=== PATIENT | male | born 1980 | race Caucasian/White ===

== ENCOUNTER 2017-09-21 03:31 | Inpatient (IN) | payer SELFPAY ==
[~2017-09-21 03:31] MED LIST: NA CHLORIDE 0.9% 1,000 ML ONE; PROPOFOL 1,000 MG/100 ML VIAL IV ONE; RSI MEDICATION KIT IV ONE
--- OUTSIDE RECORDS SUMMARY | 2017-09-21 03:33 | XMS REPORT | Summary of Care ---
:1980 Author Organization [facility] Address [address] [place] [id number]- Encounter HQ Encntr_pilar(FIN) [id number] Date(s): 09/04/15 - 09/06/[address] Professional Services provided by [facility] [place] [address]- Discharge Disposition: Home or Self Care Attending Physician: Kris Stapleton MD Admitting Physician: Kris Stapleton MD Vital Signs Most recent to oldest 1 2 3 [Reference Range]: Height 182.88 cm 187.96 cm (09/04/15 5:00 PM) (09/04/15 12:37 PM) Temperature Oral [96.4-99.1 96.8 DegF 98.3 DegF 98.8 DegF DegF] (09/06/15 7:10 AM) (09/06/15 3:14 AM) (09/05/15 11:17 PM) Blood Pressure [90-140/60-90 116/73 mmHg 124/70 mmHg 130/78 mmHg mmHg] (09/06/15 7:10 AM) (09/06/15 3:14 AM) (09/05/15 11:17 PM) Respiratory Rate [14-20 16 BRMIN 16 BRMIN 16 BRMIN BRMIN] (09/06/15 7:10 AM) (09/06/15 3:14 AM) (09/05/15 11:17 PM) Peripheral Pulse Rate [60-100 67 bpm 79 bpm 73 bpm bpm] (09/06/15 7:10 AM) (09/06/15 3:14 AM) (09/05/15 11:17 PM) Weight 94 kg 94.091 kg (09/04/15 5:00 PM) (09/04/15 12:37 PM) Body Mass Index 28.11 m2 26.63 m2 (09/04/15 5:00 PM) (09/04/15 12:37 PM) Problem List No data available for this section Allergies, Adverse Reactions, Alerts Substance Reaction Severity Status lithium1 Active 1hives, tounge swelling Medications acetaminophen 650 mg, 2 tab, Route: PO, Drug form: TAB, Q4H, Dosing Weight 94.091, kg, PRN Pain 1-3/Temp > 99.5 F, Start date: 09/04/15 13:30:00 CDT, Duration: 30 day, Stop date: 10/04/15 13:29:00 CDT Notes: Do not exceed 4 gm/day. (Same as: Tylenol) Start Date: 09/04/15 Stop Date: 09/06/15 Status: Discontinuedacetaminophen 325 mg oral tablet 650 mg=2 tab, PO, Q4H, PRN Pain 1-3/Temp > 99.5 F, 0 Refill(s) Start Date: 09/06/15 Status: Orderedalteplase 76.6 mg, 76.6 mL, Route: IV, Drug form: PDR/INJ, ONCE, Dosing Weight 94.091, kg , For Stroke Infusion, Start date: 09/04/15 13:38:00 CDT, Stop date: 09/04/15 13 :38:00 CDT Notes: (Same as: Activase) MEDICATION WASTE Product Size: 100 mgProduct Wasted: ___ mg Start Date: 09/04/15 Stop Date: 09/04/15 Status: Completedalteplase 8.5 mg, 8.5 mL, Route: IV, Drug form: PDR/INJ, ONCE, Dosing Weight 94.091, kg, For Stroke Bolus, Start date: 09/04/15 13:38:00 CDT, Stop date: 09/04/15 13:38: 00 CDT Notes: (Same as: Activase) MEDICATION WASTE Product Size: 100 mgProduct Wasted: ___ mg Start Date: 09/04/15 Stop Date: 09/04/15 Status: Completedatorvastatin 80 mg, 1 tab, Route: PO, Drug form: TAB, Bedtime, Dosing Weight 94.091, kg, Start date: 09/04/15 21:00:00 CDT, Duration: 30 day, Stop date: 10/03/15 21:00: 00 CDT Notes: Same as Lipitor Start Date: 09/04/15 Stop Date: 09/05/15 Status: Discontinueddocusate 100 mg, 1 cap, Route: PO, Drug form: CAP, Q12H, Dosing Weight 94.091, kg, Start date: 09/04/15 21:00:00 CDT, Duration: 30 day, Stop date: 10/04/15 9:00:00 CDT Notes: (Same as: Colace) (Do Not Crush) Start Date: 09/04/15 Stop Date: 09/06/15 Status: Discontinuedheparin 5000 units/mL injectable solution 5,000 unit, 1 mL, Route: SUB-Q, Drug form: INJ, Q8H, Dosing Weight 94, kg, Start date: 09/05/15 17:05:00 CDT, Duration: 30 day, Stop date: 10/05/15 16:00: 00 CDT Notes: porcine heparin Start Date: 09/05/15 Stop Date: 09/06/15 Status: Discontinuednicotine 7 mg, 1 patch, Route: TOP, Drug form: ERFILM, Daily, Dosing Weight 94, kg, Start date: 09/05/15 9:00:00 CDT, Duration: 30 day, Stop date: 10/04/15 9:00:00 CDT Notes: (Same as: Habitrol)"Remove old patch before application of new patch "WASTE: F/P - P Waste Black; E - P Waste Black Start Date: 09/05/15 Stop Date: 09/06/15 Status: Discontinuedpantoprazole 40 mg, Route: IVP, Drug form: INJ, Daily, Dosing Weight 94.091, kg, Start date: 09/05/15 9:00:00 CDT, Duration: 30 day, Stop date: 10/04/15 9:00:00 CDT Notes: For IV push reconstitute with 10 ml 0.9% sodium chloride and push over 2 minutes. (Same as: Protonix) Start Date: 09/05/15 Stop Date: 09/05/15 Status: Discontinuedremove patch 1 patch, Route: TOP, Drug form: ERFILM, Daily, Start date: 09/06/15 9:00:00 CDT , Duration: 30 day, Stop date: 10/05/15 9:00:00 CDT Notes: Remove old patch before application of new patch.WASTE: F/P - P Waste Black; E - P Waste Black Start Date: 09/06/15 Stop Date: 09/06/15 Status: DiscontinuedSaline Flush 0.9% 10 mL, Route: IVP, Drug Form: INJ, kg, PRN, PRN Line Flush, Start date: 12:32:00 CDT, Duration: 30 day, Stop date: 10/04/15 12:31:00 CDT Notes: (Same as: BD Posiflush) Start Date: 09/04/15 Stop Date: 09/05/15 Status: DeletedSaline Flush 0.9% 10 ml, Route: IVP, Drug Form: INJ, Dosing Weight 94.091, kg, Q12H, Start date: 09/04/15 21:00:00 CDT, Duration: 30 day, Stop date: 10/04/15 9:00:00 CDT Notes: (Same as: BD Posiflush) Start Date: 09/04/15 Stop Date: 09/06/15 Status: DiscontinuedSaline Flush 0.9% 10 ml, Route: IVP, Drug Form: INJ, Dosing Weight 94.091, kg, PRN, PRN Line Flush , Start date: 09/04/15 13:30:00 CDT, Duration: 30 day, Stop date: 10/04/15 13:29 :00 CDT Notes: (Same as: BD Posiflush) Start Date: 09/04/15 Stop Date: 09/06/15 Status: Discontinuedsodium chloride 0.9% 1000 ml INJ 1,000 mL 1,000 mL, Rate: 75 ml/hr, Infuse over: 13.3 hr, Route: IV, Dosing Weight 94.091 kg, Total Volume: 1,000, Start date: 09/04/15 13:30:00 CDT, Duration: 30 day, Stop date: 10/04/15 13:29:00 CDT Start Date: 09/04/15 Stop Date: 09/05/15 Status: Discontinued Results ELECTROLYTES Most recent to oldest 1 2 3 [Reference Range]: Sodium Lvl [135-145 mEq/L] 143 mEq/L 143 mEq/L 140 mEq/L (09/06/15 3:21 AM) (09/05/15 1:05 AM) (09/04/15 12:48 PM) Potassium Lvl [3.5-5.1 3.9 mEq/L 3.5 mEq/L 4.1 mEq/L mEq/L] (09/06/15 3:21 AM) (09/05/15 1:05 AM) (09/04/15 12:48 PM) Chloride Lvl [95-109 mEq/L] 109 mEq/L 111 mEq/L 106 mEq/L (09/06/15 3:21 AM) *HI* (09/04/15 12:48 PM) (09/05/15 1:05 AM) CO2 [24-32 mEq/L] 24 mEq/L 22 mEq/L 24 mEq/L (09/06/15 3:21 AM) *LOW* (09/04/15 12:48 PM) (09/05/15 1:05 AM) AGAP [10.0-20.0 mEq/L] 13.9 mEq/L 13.5 mEq/L 14.1 mEq/L (09/06/15 3:21 AM) (09/05/15 1:05 AM) (09/04/15 12:48 PM) CHEM PANEL Most recent to oldest 1 2 3 [Reference Range]: Creatinine Lvl [0.50-1.40 0.79 mg/dL 1.00 mg/dL 1.08 mg/dL mg/dL] (09/06/15 3:21 AM) (09/05/15 1:05 AM) (09/04/15 12:48 PM) eGFR 117 mL/min/1.73m2 1 98 mL/min/1.73m2 2 50 mL/min/1.73m2 3 *NA* *NA* *NA* (09/06/15 3:21 AM) (09/05/15 1:05 AM) (09/04/15 12:48 PM) BUN [7-22 mg/dL] 9 mg/dL 12 mg/dL 12 mg/dL (09/06/15 3:21 AM) (09/05/15 1:05 AM) (09/04/15 12:48 PM) Glucose Lvl [70-99 mg/dL] 98 mg/dL 118 mg/dL 105 mg/dL (09/06/15 3:21 AM) *HI* *HI* (09/05/15 1:05 AM) (09/04/15 12:48 PM) POC Creatinine [0.5-1.4 1.0 mg/dL mg/dL] (09/04/15 12:36 PM) Calcium Lvl [8.5-10.5 8.9 mg/dL 7.9 mg/dL 8.6 mg/dL mg/dL] (09/06/15 3:21 AM) *LOW* (09/04/15 12:48 PM) (09/05/15 1:05 AM) Phosphorus [2.5-4.5 mg/dL] 3.3 mg/dL 2.6 mg/dL (09/06/15 3:21 AM) (09/05/15 1:05 AM) Magnesium Lvl [1.8-2.4 2.1 mg/dL 2.0 mg/dL mg/dL] (09/06/15 3:21 AM) (09/05/15 4:46 AM) 1Result Comment: The eGFR is calculated using the CKD-EPI formula. In most young , healthy individualsthe eGFR will be >90 mL/min/1.73m2. The eGFR declines with age. An eGFR of 60-89 may be normal in some populations, particularly the elderly, for whom the CKD-EPI formula has not been extensively validated. Use of the eGFR is not recommended in the following populations: Individuals with unstable creatinine concentrations, including patients and those with serious co-morbid conditions. Patients with extremes in muscle mass or diet. The data above are obtained from the National Kidney Disease Education Program ( NKDEP) which additionally recommends that when the eGFR is used in patients with extremes of body mass index for purposesof drug dosing, the eGFR should be multiplied by the estimated BMI.2Result Comment: The eGFR is calculated using the CKD-EPI formula. In most young, healthy individualsthe eGFR will be >90 mL/ min/1.73m2. The eGFR declines with age. An eGFR of 60-89 may be normal in some populations, particularly the elderly, for whom the CKD-EPI formula has not been extensively validated. Use of the eGFR is not recommended in the following populations: Individuals with unstable creatinine concentrations, including patients and those with serious co-morbid conditions. Patients with extremes in muscle mass or diet. The data above are obtained from the National Kidney Disease Education Program ( NKDEP) which additionally recommends that when the eGFR is used in patients with extremes of body mass index for purposesof drug dosing, the eGFR should be multiplied by the estimated BMI.3Result Comment: The eGFR is calculated using the CKD-EPI formula. In most young, healthy individualsthe eGFR will be >90 mL/ min/1.73m2. The eGFR declines with age. An eGFR of 60-89 may be normal in some populations, particularly the elderly, for whom the CKD-EPI formula has not been extensively validated. Use of the eGFR is not recommended in the following populations: Individuals with unstable creatinine concentrations, including patients and those with serious co-morbid conditions. Patients with extremes in muscle mass or diet. The data above are obtained from the National Kidney Disease Education Program ( NKDEP) which additionally recommends that when the eGFR is used in patients with extremes of body mass index for purposesof drug dosing, the eGFR should be multiplied by the estimated BMI.CARDIAC ENZYMES Most recent to oldest [Reference Range]: 1 2 3 Total CK [12-191 unit/L] 185 unit/L (09/04/15 12:48 PM) CK MB [0.5-3.6 ng/mL] 0.6 ng/mL (09/04/15 12:48 PM) CK MB Index [0.0-2.5] 0.3 (09/04/15 12:48 PM) Troponin-I [0.00-0.40 ng/mL] <0.02 ng/mL <0.02 ng/mL (09/05/15 1:05 AM) (09/04/15 12:48 PM) LIPIDS Most recent to oldest [Reference Range]: 1 2 3 CHD Risk [4.00-7.30] 4.45 (09/05/15 1:05 AM) Chol [<=199 mg/dL] 169 mg/dL (09/05/15 1:05 AM) Trig [<=149 mg/dL] 164 mg/dL *HI* (09/05/15 1:05 AM) HDL [>=61 mg/dL] 38 mg/dL *LOW* (09/05/15 1:05 AM) LDL (Calculated) [<=99 mg/dL] 98 mg/dL (09/05/15 1:05 AM) VLDL 33 *NA* (09/05/15 1:05 AM) SPECIAL CHEMISTRY Most recent to oldest [Reference Range]: 1 2 3 Hgb A1C [<=5.6 %] 5.2 % (09/05/15 1:05 AM) DRUG SCREEN Most recent to oldest [Reference Range]: 1 2 3 U Amph Scr [Negative] Negative *NA* (09/05/15 1:05 AM) U Cindi Scr [Negative] Negative *NA* (09/05/15 1:05 AM) U Benzodia Scr [Negative] Negative *NA* (09/05/15 1:05 AM) U Cocaine Scr [Negative] Negative *NA* (09/05/15 1:05 AM) U Opiate Scr [Negative] Negative *NA* (09/05/15 1:05 AM) U Phencyc Scr [Negative] Negative *NA* (09/05/15 1:05 AM) U Cannab Scr [Negative] Negative *NA* (09/05/15 1:05 AM) UDS Note See Note *NA* (09/05/15 1:05 AM) TOXICOLOGY Most recent to oldest [Reference Range]: 1 2 3 Etoh (%) .018 % *NA* (09/04/15 1:11 PM) Ethanol Lvl 18 mg/dL *NA* (09/04/15 1:11 PM) URINE AND STOOL Most recent to oldest [Reference Range]: 1 2 3 UA Turbidity [Clear] Clear (09/05/15 1:05 AM) UA Color [Yellow] Yellow *NA* (09/05/15 1:05 AM) UA pH [5.0-8.0] 6.0 (09/05/15 1:05 AM) UA Spec Grav [<=1.030] 1.030 (09/05/15 1:05 AM) UA Glucose [Negative mg/dL] Negative mg/dL *NA* (09/05/15 1:05 AM) UA Blood [Negative] Negative (09/05/15 1:05 AM) UA Ketones [Negative mg/dL] Negative mg/dL *NA* (09/05/15 1:05 AM) UA Protein [Negative mg/dL] Negative mg/dL (09/05/15 1:05 AM) UA Urobilinogen [0.1-1.0 mg/dL] 2.0 mg/dL *HI* (09/05/15 1:05 AM) UA Bili [Negative] Negative *NA* (09/05/15 1:05 AM) UA Leuk Est [Negative] Negative (09/05/15 1:05 AM) UA Nitrite [Negative] Negative (09/05/15 1:05 AM) UA WBC [0-5 /HPF] <1 /HPF (09/05/15 1:05 AM) UA Sq Epi None Seen *NA* (09/05/15 1:05 AM) UA Mucus [None Seen /LPF] Few /LPF *NA* (09/05/15 1:05 AM) HEMATOLOGY Most recent to oldest 1 2 3 [Reference Range]: WBC [3.7-10.4 K/CMM] 7.2 K/CMM 4.8 K/CMM 5.5 K/CMM (09/06/15 3:21 AM) (09/05/15 1:05 AM) (09/04/15 12:48 PM) RBC [4.70-6.10 M/CMM] 5.34 M/CMM 5.03 M/CMM 5.31 M/CMM (09/06/15 3:21 AM) (09/05/15 1:05 AM) (09/04/15 12:48 PM) Hgb [14.0-18.0 g/dL] 15.9 g/dL 15.1 g/dL 16.0 g/dL (09/06/15 3:21 AM) (09/05/15 1:05 AM) (09/04/15 12:48 PM) Hct [42.0-54.0 %] 47.3 % 43.9 % 46.8 % (09/06/15 3:21 AM) (09/05/15 1:05 AM) (09/04/15 12:48 PM) MCV [80.0-94.0 fL] 88.7 fL 87.2 fL 88.1 fL (09/06/15 3:21 AM) (09/05/15 1:05 AM) (09/04/15 12:48 PM) MCH [27.0-31.0 pg] 29.8 pg 30.1 pg 30.1 pg (09/06/15 3:21 AM) (09/05/15 1:05 AM) (09/04/15 12:48 PM) MCHC [32.0-36.0 g/dL] 33.6 g/dL 34.5 g/dL 34.2 g/dL (09/06/15 3:21 AM) (09/05/15 1:05 AM) (09/04/15 12:48 PM) RDW [11.5-14.5 %] 13.0 % 12.9 % 13.3 % (09/06/15 3:21 AM) (09/05/15 1:05 AM) (09/04/15 12:48 PM) Platelet [133-450 K/CMM] 171 K/CMM 178 K/CMM 60 K/CMM (09/06/15 3:21 AM) (09/05/15 2:35 PM) *LOW* (09/05/15 1:05 AM) MPV [7.4-10.4 fL] 10.0 fL 10.5 fL 9.4 fL (09/06/15 3:21 AM) *HI* (09/04/15 12:48 PM) (09/05/15 1:05 AM) Segs [45.0-75.0 %] 49.0 % 52.0 % 45.4 % (09/06/15 3:21 AM) (09/05/15 1:05 AM) (09/04/15 12:48 PM) Lymphocytes [20.0-40.0 %] 34.4 % 38.0 % 35.8 % (09/06/15 3:21 AM) (09/05/15 1:05 AM) (09/04/15 12:48 PM) Monocytes [2.0-12.0 %] 10.4 % 6.0 % 12.8 % (09/06/15 3:21 AM) (09/05/15 1:05 AM) *HI* (09/04/15 12:48 PM) Eosinophils [0.0-4.0 %] 5.6 % 3.0 % 5.3 % *HI* (09/05/15 1:05 AM) *HI* (09/06/15 3:21 AM) (09/04/15 12:48 PM) Basophils [0.0-1.0 %] 0.6 % 1.0 % 0.7 % (09/06/15 3:21 AM) (09/05/15 1:05 AM) (09/04/15 12:48 PM) Segs-Bands # [1.5-8.1 K/CMM] 3.5 K/CMM 2.5 K/CMM 2.5 K/CMM (09/06/15 3:21 AM) (09/05/15 1:05 AM) (09/04/15 12:48 PM) Lymphocytes # [1.0-5.5 2.5 K/CMM 1.8 K/CMM 2.0 K/CMM K/CMM] (09/06/15 3:21 AM) (09/05/15 1:05 AM) (09/04/15 12:48 PM) Monocytes # [0.0-0.8 K/CMM] 0.8 K/CMM 0.3 K/CMM 0.7 K/CMM (09/06/15 3:21 AM) (09/05/15 1:05 AM) (09/04/15 12:48 PM) Eosinophils # [0.0-0.5 0.4 K/CMM 0.2 K/CMM 0.3 K/CMM K/CMM] (09/06/15 3:21 AM) (09/05/15 1:05 AM) (09/04/15 12:48 PM) Anisocyte [None Seen] 1+ *ABN* (09/05/15 1:05 AM) Plt Morph Normal (09/05/15 1:05 AM) PT [12.0-14.7 seconds] 14.1 seconds (09/04/15 12:48 PM) INR [0.85-1.17] 1.06 (09/04/15 12:48 PM) PTT [22.9-35.8 seconds] 28.9 seconds (09/04/15 12:48 PM) Immunizations No data available for this section Procedures Procedure Date Related Diagnosis Body Site Total knee replacement Social History Social History Type Response Alcohol Current, Type Beer. Smoking Status Current every day smoker; Type: Cigarettes; Previous treatment: None; Ready to change: No; Concerns about tobacco use in household: No; Exposure to Tobacco Smoke None; Cigarette Smoking Last 365 Days No; Reg Smoking Cessation Counseling No Assessment and Plan Extracted from: Title: Discharge Summary Author: Vikki Christian MD Date: 09/06/15 [facility] Date of Admission: 09/04/2015 Date of Discharge: 09/06/2015 Admit Diagnosis: Concern for stroke Discharge Diagnoses: Syncopal event Consults Obtained: None Brief HPI and Hospital Course: 34 yo man with pmh of HTN, smoking pack a day, questionable spinal tumor for which patient had spinal surgery 3 years ago, present with left sided weakness, left gaze deviation and unable to communicate in the field. as per patient he was going home from [place], was 9am and last thing he remembers stopping the car and starting vomitting. as per EMS family member found him unresponsive, symptom onset at 11:15am. Patient at arrival, was responsive, following commands, no eye deviation noted, and only symptoms persist was left dense hemiparesis. of note patient reports he does not like to take any m edications, denies taking anything, does not follow with any doctors, he reports that he time to time has LOC, cannot tell me how long this episodes. Was previously evaluated for seizures in childhood, never diagnosed with anything. Patient was evaluated and NIHSS was 7. CTH, CT perfusion, CTA did not show any notible abnormalities. Patient's symptoms were consistent with ischemic stoke and patient recieved TPA. MRI brain and spine were done due to patient's history of possible spinal tumor. No deficits on exam. The next morning patient reports that this morning he feels well and is able to move a ll of his extremities. He continues to feel some left sided shoulder and leg "soreness" but does not report he feels weak. No nausea or vomiting noted. Patient had EEG done to rule out seizures, EEG was normal. Event most likely related to syncope. Clearned for discharge home by PT/OT/Speech. Of note, patient noted to have pulmonary nodules on CT neck. No acute clinical respiratory changes or findings on exam. Patient instucted to follow up with PCP for this. Stroke work up CT Head w/o contrast: no acute findings. no hemorrhage CT Perfusion: no remarkable perfusion deficit, no mismatch CTA: no significant intracranial or extracranial artery stenosis, no aneurysm, no malformation MRI Brain w/o contrast: No intracranial abnormality 2D ECHO w bubble study: mild inter-pulmonary shunting, mild pulmonic regurgitation, otherwise normal EKG: Normal sinus rhythm LDL- 98 HbA1c: 5.2 EEG: This is a normal routine electroencephalogram. No epileptiform activity is seen, and no clinical or electrographic seizures are recorded. Discharge Physical Examination: HEAD - Normocephalic and atraumatic LUNGS - Clear to auscultation, no rales or rhonchi CVS - Rate rhythm regular, no murmur, equal pulses bilaterally ABDOMEN - Soft, non tender, with normal bowel sounds. No hepatosplenomegaly NEUROLOGY: AAO*3 Speech: fluent, comprehension intact, repetition and naming intact collator hand: 2-12 intact Motor: Tone: Normal Power: 5/5 in all groups of muscles in all four limbs Reflexes: 2+ symmetrical bilaterally Plantar: Flexor Drift: absent Sensory: Intact light touch and pin prick sensation Intact vibration and position sense Cerebellar signs: Intact FNT, Rombergs negative Gait: normal Final Diagnosis: Syncope Discharge Medications: See HMR for full list of medications. Patient is provided with this list at discharge. Follow up and Important Plans for Future Care: - Patient does not need antiplatelet therapy - Follow up with neurology in 2 weeks - Follow up with PCP in 1 week. Follow up for pulmonary nodules noted on CT. - Smoking cessation discussed Discharge Instructions/Recommendations: The patient received stroke education regarding signs and symptoms of stroke. They were instructed to call 911 if symptoms occurred again. The list of their medications on discharged was reviewed with the patient and all questions were answered. Smoking cessation counseling was provided to the patient Vikki Christian MD PGY-3 Extracted from: Title: Stroke Progress Note Author: Vikki Christian MD Date: 09/06/15 Stroke Progress Note Subjective: No acute issues overnight HPI: 34 yo man with pmh of HTN, smoking pack a day, questionable spinal tumor for which patient had spinal surgery 3 years ago, presents with left sided weakness , left gaze deviation and unable to communicat e in the field. as per patient he was going home [place], was 9am and last thing he remembers stopping the car and starting vomitting. as per EMS family member found him unresponsive, symptom onse t at 11:15am. Patient at arrival, was repsonsive, following commands, no eye deviation noted, and only symptoms persist was left dense hemiparesis. of note patient reports he does not like to take any medications, denies taking anything, does not follow with any doctors, he reports that he time to time has LOC, cannot tell me how long this episodes last but has never been evaluated for that. Hospital Course: 09/03- Patient was evaluated and NIHSS was 7. CTH, CT perfusion, CTA did not show any notible abnormalities. Patient's symptoms were consistent with ischemic stoke and patient recieved TPA. MRI brain an d spine were done due to patient's history of possible spinal tumor. No deficits on exam. 09/04- Patient reports that this morning he feels well and is able to move all of his extremities. He continues to feel some left sided shoulder and leg "soreness" but does not report he feels weak. No nausea or vomiting noted. Medications: 09/04/15 21:00 docusate 100 mg PO Q12H 09/05/15 17:05 heparin (heparin 5000 units/mL injectable solution) 5,000 unit SUB-Q Q8H 09/05/15 9:00 nicotine 7 mg TOP Daily 09/06/15 9:00 remove patch 1 patch TOP Daily Objective: Vitals Tmp(F) Tmp(C) Ttype BP MAP Pulse RR SpO2 FIO2 ETCO2 09/05 03:14 98.3 36.83 oral 124/70 --- 79 16 98 --- --- 09/04 23:17 98.8 37.11 oral 130/78 --- 73 16 97 --- --- 09/04 19:00 98.0 36.67 oral 126/72 --- 70 16 96 --- --- 09/04 18:00 ---- ---- ---- 128/71 92 65 16 98 --- --- 09/04 17:00 ---- ---- ---- 145/69 99 81 20 97 --- --- 09/04 16:01 97.4 36.33 oral ----- --- --- -- --- --- --- 09/04 16:00 ---- ---- ---- 136/79 100 79 20 98 --- --- 09/04 15:00 ---- ---- ---- 141/64 92 79 20 97 --- --- 09/04 14:00 ---- ---- ---- 137/75 100 82 20 97 --- --- 09/04 13:00 ---- ---- ---- 132/84 101 77 20 97 --- --- Physical Exam: HEAD - Normocephalic and atraumatic LUNGS - Clear to auscultation, no rales or rhonchi CVS - Rate rhythm regular, no murmur, equal pulses bilaterally ABDOMEN - Soft, non tender, with normal bowel sounds. No hepatosplenomegaly NEUROLOGY: AAO*3 Speech: fluent, comprehension intact, repetition and naming intact collator hand: 2-12 intact Motor: Tone: Normal Power: 5/5 in all groups of muscles in all four limbs Reflexes: 2+ symmetrical bilaterally Plantar: Flexor Drift: absent Sensory: Intact light touch and pin prick sensation Intact vibration and position sense Cerebellar signs: Intact FNT, Rombergs negative Gait: normal Labs: 24hr Labs 09/05 0321 Glucose Lvl 98 BUN 9 Creatinine Lvl 0.79 Sodium Lvl 143 Potassium Lvl 3.9 Chloride Lvl 109 CO2 24 AGAP 13.9 Calcium Lvl 8.9 eGFR 117 Magnesium Lvl 2.1 Phosphorus 3.3 WBC 7.2 RBC 5.34 Hgb 15.9 Hct 47.3 MCV 88.7 MCH 29.8 MCHC 33.6 RDW 13.0 Platelet 171 MPV 10.0 Segs 49.0 Monocytes 10.4 Lymphocytes 34.4 Eosinophils 5.6 Basophils 0.6 Segs-Bands # 3.5 Lymphocytes # 2.5 Monocytes # 0.8 Eosinophils # 0.4 09/04 1435 Platelet 178 09/04 0446 Magnesium Lvl 2.0 Stroke Work up : CT Head w/o contrast: no acute findings. no hemorrhage CT Perfusion: no remarkable perfusion deficit, no mismatch CTA: no significant intracranial or extracranial artery stenosis, no aneurysm, no malformation MRI Brain w/o contrast: 2D ECHO w bubble study EKG: Normal sinus rhythm LDL- 98 HbA1c: 5.2 Rehab Services: OT- no treatement needed PT- no treatment needed ST- no treatment needed Assessment: 34 yo man with only known stroke risk factor: smoking and HTN, presents with left dense hemiparesis. NIHSS=7 sensory deficit and left hemiparesis; CTH does not show any acute changes, CTP was not signif icant, no mismatch; CTA did not show any significant intracranial or extracranial stenosis; patient got TPA, Door to needle time 35minutes; possible this was lacunar infarct, possible right thalamocaps ular infarct; although questionable as presentation and face is not involved; No spinal cord invovlvement noted. Event could also be explained by seizures as patient has a history of LOC in the past, though never diagnosed with seizures. Diagnosis: Syncope vs seizure Plan: - Symptoms of left sided weakness concerning for stroke, though imaging has been normal. Therefore, does not need Antiplatelets or statins (LDL WNL) - EKG and echo WNL - EEG negative for seizures - evaluated by PT/OT- patient can be discharged to home - Patient to be followed up by PCP for pulmonary nodules found incidentally on CT Vikki Christian MD PGY-3 Child Neurology Extracted from: Title: Stroke Neurology Staff Consult Note Author: Miguel Alfaro MD Date : 09/04/15 Stroke Neurology Staff Consult Note CC: left sided weakness and numbness, possible stroke HPI: 34 yo man with PMH s/f HTN, smoking, spinal tumor for which patient had spinal surgery 3 years ago, presents with left sided weakness, and unable to communicate in the field. He was going home from [facility], at at 9am he had the onset of vomiting and defitcits. As per EMS family member found him unresponsive, symptom onset at 11:15am. Patient at arrival, was awake and repsonsive, following commands, no eye deviation, and symptoms persisted of dense left hemiparesis and severe sensory disturbance. I personally reviewed the noncontrast head CT which was negative for acute changes or hemorrhage. I also personally reviewed the CT perfusion and CT angiogram. There were no large vessel occlusions and no perfusion deficits. I had an extensive discussion with the patient at the bedside regarding his symptoms which were consistent with ischemic stroke. I explained the risks and benefits of intra-venous alteplase. He understo od that there was a 30% chance of getting better with thrombin lysis and and aproximally 3% risk of brain hemorrhage which would cause him neurologic deterioration. He understood all of these risks and stated that his deficits were clearly disabling and that he wanted to proceed with therapy. Along with the stroke fellow at the bedside, I dosed the patient and delivered the bolus myself by hand. The p atient remained stable with no elevated blood pressures and orders were placed for him to be admitted to the stroke unit. I spent approximately 45 minutes at the bedside evaluating the patient, reviewin g the CT scans, obtaining verbal consent and delivering thrombolysis. Admit to stroke unit with routine, post-tPA stroke order set. See separate H& P for additional details. Miguel Alfaro M.D. [employer] Representative Stroke Division; Department of Neurology [phone] (pager) [phone] (cell) Extracted from: Title: s/p TPA admission to Stroke Author: Rita Israel MD Date: unit STROKE CODE (NEUROLOGY) CONSULTATION - tPA Administration DATE: September 04, 2015 Last well known time: 0900 09/04/2015 NEURO EVAL: 12:32pm 09/04/2015 CT READ: 12:37pm 09/04/2015 TPA GIVEN? 13:07pm 09/04/2015 door to needle time 35minutes If no, why not? NIHSS: [address]/LABS? no If yes, why? HPI: 34 yo man with pmh of HTN, smoking pack a day, questionable spinal tumor for which patient had spinal surgery 3 years ago, presents with left sided weakness , left gaze deviation and unable to communicat e in the field. as per patient he [place], was 9am and last thing he remembers stopping the car and starting vomitting. as per EMS family member found him unresponsive, symptom onse t at 11:15am. Patient at arrival, was repsonsive, following commands, no eye deviation noted, and only symptoms persist was left dense hemiparesis. of note patient reports he does not like to take any medications, denies taking anything, does not follow with any doctors, he reports that he time to time has LOC, cannot tell me how long this episodes last but has never been evaluated for that. PMHx: As above FH: no known family history SH: smoking cigarettes one pack a day, alcohol not clear how frequent, last time ETOH yesterday 12 pack, denies durge abuse. Allergy: NKDA Meds: reports to take medication for his spinal tumor cannot recall the name, does not follow anybody for his health maintanence Physical Exam: Vitals: afebr, JU=057/70 , FS=714, RR=20, FS=95 General: AAO x2, only complaining of left sided numbness. Skin: normal color, temperature, no rash, petechiae, no ecchymosis Neck: supple, no bruit, no JVD Neuro Exam: Mental Status: A&Ox2, naming, repetition, reading, writing, comprehension normal, follows 3 steps commands, crosses midline,+/- right left confusion, no visual space disorientation. CN: Pupils equal 3mm reactive to light, visual santos full, EOMI, no nystagmus , face symmetric, decrease sensation on left V1, V2, V3 distribution, hearing finger rub intact b/l, swallowing intact, samir te rise symmetric, tongue midline, no atrophy or fasciculations, no dysarthria. Motor: no drift on the right UE and LE; left UE and LE not against gravity; can only squeeze hand 3/5; cannot shrug shoulders; wiglles toes on the left LE but cannot lift against gravity; Sensory: decrease sensation on the face V1, V2, V3 distribution, left UE and LEft LE to light touch, PP and temperature; Reflexes: 1+ and symmetric B/L biceps, triceps, brachioradialis, 3+ with suprapatellar b/l patellar and 2+ ankle, no clonus; downgoing plantars B/L Coord: finger to nose can do on the right but cannot perform on the left side , [id number] intact on the right cannot perform on the left Gait: deffered 09/03 1532 Glucose POC 100 H 09/03 1311 Ethanol Lvl 18 Etoh (%) .018 09/03 1248 Glucose Lvl 105 H BUN 12 Creatinine Lvl 1.08 Sodium Lvl 140 Potassium Lvl 4.1 Chloride Lvl 106 CO2 24 AGAP 14.1 Calcium Lvl 8.6 eGFR 50 Total CK 185 Troponin-I <0.02 CK MB 0.6 CK MB Index 0.3 WBC 5.5 RBC 5.31 Hgb 16.0 Hct 46.8 MCV 88.1 MCH 30.1 MCHC 34.2 RDW 13.3 Platelet 188 MPV 9.4 Segs 45.4 Monocytes 12.8 H Lymphocytes 35.8 Eosinophils 5.3 H Basophils 0.7 Segs-Bands # 2.5 Lymphocytes # 2.0 Monocytes # 0.7 Eosinophils # 0.3 PT 14.1 INR 1.06 PTT 28.9 18 1236 POC Creatinine 1.[address] Head: no acute findings. no hemorrhage; CTperfusion: no remarkable perfusion deficit, no mismatch CTA: no significant intracranial or extracranial artery stenosis, no aneurysm, no malformation EKG: NSR Impression: 34 yo man with only known stroke risk factor: smoking and HTN, presents with left dense hemiparesis. NIHSS=7 sensory deficit and left hemiparesis; CTH does not show any acute changes, CTP was not signif icant, no mismatch; CTA did not show any significant intracranial or extracranial stenosis; patient got TPA, Door to needle time 35minutes; possible this was lacunar infarct, possible right thalamocaps ular infarct; although questionable as presentation and face is not involved; will work up if any new spinal cord involvements (less likely) (on the exam patient is symmetrically hyperreflexic in lower extremities, no clear pathological reflexes); no other signs of spinal cord involvement. TPA IV bolus at 13:07, 8.5mg; infusion dose: 76.6 total=85.1; wasted: 14.9mg NIHSS Scale: 7 Suggestion/Plan: 1) Admit to Stroke Unit or ICU 2) Bedrest for 24-48 hours, (head of bed <15 degrees) 3) Cardiac monitoring 4) IVF: Normal Saline @ 30cc/kg/day; do not use D5W or NS 5) frequent Neurochecks q1hr 6) Call MD if NIHSS worse by >2, lethargy or worse mental status, severe headache, nausea, vomiting, SBP < 120 mmHg or SBP> 180 mmHg or DBP> 105 mmHg, FSG < 60 mg/dL, FSG > 400 mg/dL, O2 < 94% 7) Check BP every 15 minutes for 2h, then q30 min for 6h, then q1h for16h 8) BP target 185/110 mmHg before tPA administration 9) BP target 180/105 mmHg during tPA infusion 10) If SBP>185 mmHg, DBP>110 mmHg give labetalol 10 mg iv over 1 min and get nicardipine drip 11) If SBP>185 mmHg, DBP >110 mmHg start iv nicardipine 5mg/h; titrate up by 2.5 mg/h every 10 min; maximum 15 mg/h 12) If SBP>185 mmHg, DBP >110 mmHg or DBP>140 mmHg get nitroprusside drip 13) CT head STAT if neurological worsening 14) Regular insulin coverage to keep FSG 140-180 mg/dL 15) Tylenol 650 mg pot id prn temp >100.4 16) Atorvastatin 80 mg po if no longer NPO 17) Repeat CT at 24h 18) If no hemorrhage on CT at 24h start aspirin 81 mg po 19) If no hemorrhage on CT at 24h start UFH 5000 iu sc q8h 20) MRI Brain w/o gadolinium 21) 2D Echo/HOWARD 22) Stroke workup labs: Lipid Prof, HgA1C. 23) Rehab evaluation 24) consider MRI of CTL spine GCS: 15 NIH STROKE SCALE: 7 Addendum by Rita Israel MD on Following was present at Admission: 09/05/2015 08:02 CAFETERIA OR LUNCHROOM CHECKER - Dense hemiparesis Respiratory - no respiratory problems at admission Cardiovascular - NO CHF Acute NE Infectious - NONE GI - NO Peptic ulcer disease, GI bleeding Renal - NO NATALIIA or CKD Heme- NO Coagulopathy, Anemia Cancer - History of questionable "spinal tumor." patient cannot give more information Trauma - NONE Addendum by Kris Stapleton MD on STROKE NEUROLOGY ATTENDING 09/05/2015 15:57 I have seen and examined the patient. Furthermore, I have discussed the case with and reviewed the resident's note and agree with the history, exam, assessment and plan. See note below for additions a nd/or exceptions and my findings. I have personally viewed the patient's radiographic studies and laboratory tests. Summary: The patient yesterday had nauea and vomiting and felt dizzy and generalized weakness. He says does not remember the next series of events. EMS was called who found him unresponsive. He was b rought to our ED and teated with t-PA for possible acute ishcemic stroke. Notable Exam findings: alert, follows commands, fluenet, no slurred speech, no neglect, no limb weakness on exam, face is symmetric, there is no ataxia, senstion intaction to LT on both sides. in face, arm, and leg. shoulder pain on the left. Imaging: Initial CTH/A on: no acute patology. MRI: no acute infarct. no old infarct Assessment/Plan: 89047-[id number] admission Principal Diagnosis history not consistent with a stroke and MRI is negative for acute infarct. Differential would include a syncopal event but he has poor memory of the event. A seizure is a possibility. He has a histo ry of losing consciousness in the past. Tox screen picked up alcohol. evaluation: TTE; PT/OT consult; EEG; follow-up spine imaging given history of ?spine tumor Plan for discharge tomorrow We discussed the philosophy of care with patient and available family if present, reviewed and updated on plan of care and prognosis.
[2017-09-21 04:00] LABS: Blood O2 Saturation 97.2 % (92-98.5)
[2017-09-21 04:01] LABS: Arterial Blood Carboxyhemoglob 10.1 % (0-1.5)
[2017-09-21 04:12] LABS: Absolute Lymphocytes (CBC) 3.1 K/uL (0.7-4.9); Absolute Monocytes 0.7 K/uL (0.1-1.3); Absolute Neutrophil 3.7 K/uL (1.8-8.0); Basophils % 0.8 % (0-1.3); Eosinophils % 1.4 % (0-4.4); Hematocrit 48.5 % (39.6-49.0); Lymphocytes % 41.1 % (15.3-44.8); MCH 31.9 pg (27.0-35.0); MCV 90.3 fL (80-100); MPV 9.8 fL (7.6-11.3); Monocytes % 8.8 % (3.3-12.3); RBC Red Blood Cell Count 5.37 M/uL (4.33-5.43)
[2017-09-21 04:13] LABS: Protime INR 1.21
[2017-09-21 04:16] LABS: Barbiturates NEGATIVE (NEGATIVE); Benzodiazepines NEGATIVE (NEGATIVE); Cocaine NEGATIVE (NEGATIVE); METHAMPHETAM NEGATIVE (NEGATIVE); Methadone NEGATIVE (NEGATIVE); Opiates NEGATIVE (NEGATIVE); Phencyclidine NEGATIVE (NEGATIVE); THC Cannibis NEGATIVE (NEGATIVE)
--- NOTE | 2017-09-21 04:45 | EDPHYS ---
Physician Documentation [facility] Name: Feliz Linares Jr Age: 36 yrs Sex: Male : 1980 Arrival Date: 09/21/2017 Time: 03:32 Bed 3 Private MD: ED Physician Alberto Martínez HPI: 09/21 03:56 This 36 yrs old Male presents to ER via Unassigned with complaints of rn Suicidal Ideation, Overdose. 03:56 The patient presents to the emergency department with a history of a suicide gesture, rn suicide ideation. Onset: The symptoms/episode began/occurred at an unknown time. mental health deputy estimates around 2:15 AM . 04:03 Severity of symptoms: At their worst the symptoms were severe in the emergency rn department the symptoms are unchanged. The patient has experienced similar episodes in the past. Per mental health deputy, patient well known to them, calls frequently, this time told him that he took "all of his pills", which was approx 150 seroquel and 120 depakote to kill himself, when EMS arrived, was combative, but talkative, quickly declined to sonorous respirations around 8-10, no response to narcan.. Historical: - Allergies: 04:16 LITHIUM DERIVITIVES; lp1 - Home Meds: 04:16 Unable to obtain [Active]; lp1 - PMHx: 04:16 ADD/ADHD; Bipolar disorder; Depression; Hypertension; lp1 04:26 Seizures; lp1 - PSHx: 04:16 Unable to obtain; lp1 - Immunization history:: Adult Immunizations unknown. - Social history:: Smoking status: unknown. - Ebola Screening: : No symptoms or risks identified at this time. - History obtained from: EMS. - Unable to obtain history due to: unresponsive. ROS: 04:03 Unable to obtain ROS due to obtunded state. rn Exam: 04:03 Constitutional: This is a well developed, well nourished patient who is unresponsive rn even to painful stimuli Head/Face: Normocephalic, atraumatic. Eyes: pinpoint pupils, minimally reactive, no nystagmus ENT: dry MM Cardiovascular: tachycardic, regular, no murmur Respiratory: bradypnea with sonorous respirations Abdomen/GI: soft, non-tender Skin: Dry, no evidence of cellulitis Neuro: GCS3, no response to painful stimuli Vital Signs: 03:20 BP 104 / 62; Pulse 145; Resp 10; Pulse Ox 95% on 40% Venturi mask; Weight 99.79 kg; lp1 03:30 BP 103 / 67; Pulse 144; Resp 12; Pulse Ox 96% on 40% Venturi mask; lp1 03:50 BP 110 / 73; Pulse 123; Resp 14; Temp 96.6(C); Pulse Ox 99% on 50% FiO2 ETT vent; lp1 04:45 BP 98 / 56; Pulse 113; Resp 16; Temp 95.6(C); Pulse Ox 100% on ETT vent; aa1 05:36 BP 97 / 64; Pulse 110; Resp 16; Temp 95.5(C); Pulse Ox 100% on ETT vent; aa1 06:13 BP 97 / 71; Pulse 120; Resp 18; Temp 96.0(C); Pulse Ox 100% on ETT vent; aa1 07:00 BP 87 / 60; Pulse 121; Resp 16 A; Temp 96.9(C); Pulse Ox 100% on ETT vent; aa5 07:15 BP 91 / 62; Pulse 122; Resp 16 A; Temp 96.9(C); Pulse Ox 100% on ETT vent; aa5 07:30 BP 91 / 54; Pulse 117; Resp 16 A; Temp 97.0(C); Pulse Ox 100% on ETT vent; aa5 07:45 BP 92 / 58; Pulse 120; Resp 16 A; Temp 97.2(C); Pulse Ox 100% on ETT vent; aa5 08:00 BP 96 / 52; Pulse 120; Resp 16 A; Temp 97.3(C); Pulse Ox 100% on ETT vent; aa5 Ventilator: 03:40 Fi02: 50%; Rate: 16min; T.V.: 500ml; Peep: 0cm; lp1 MDM: 03:37 Patient medically screened. rn 04:02 ED course: O2 kept at 100% on ventilator due to elevated COHb level. . rn 04:40 Differential diagnosis: overdose, suicidal gesture. Data reviewed: vital signs, nurses rn notes, lab test result(s), EKG, radiologic studies, plain films. Counseling: I had a detailed discussion with the patient and/or guardian regarding: the historical points, exam findings, and any diagnostic results supporting the discharge/admit diagnosis, lab results, radiology results, the need for further work-up and treatment in the hospital. Response to treatment: the patient's symptoms have mildly improved after treatment, and as a result, I will admit patient. Admission orders: after a detailed discussion of the patient's condition and case, the admit orders are written by me. ED course: Improved HR, airway secure, poison control recommends supportive care, initial ABG looks ok, admitted to ICU under Dr. Davila.. 09/21 03:37 Order name: Acetaminophen rn 09/21 03:37 Order name: Basic Metabolic Panel rn 09/21 03:37 Order name: CBC with Diff rn 09/21 03:37 Order name: ETOH Level rn 09/21 03:37 Order name: Hepatic Function rn 09/21 03:37 Order name: PT-INR rn 09/21 03:37 Order name: Ptt, Activated rn 09/21 03:37 Order name: Salicylate rn 09/21 03:37 Order name: Urine Drug Screen rn 09/21 03:43 Order name: PT-INR; Complete Time: 04:25 ea 09/21 03:43 Order name: Salicylate; Complete Time: 04:31 ea 09/21 03:43 Order name: Ptt, Activated; Complete Time: 04:25 ea 09/21 03:43 Order name: ETOH Level; Complete Time: 05:27 ea 09/21 03:43 Order name: Hepatic Function; Complete Time: 05:27 ea 09/21 03:43 Order name: Basic Metabolic Panel; Complete Time: 05:27 ea 09/21 03:43 Order name: CBC with Diff; Complete Time: 04:25 ea 09/21 03:43 Order name: Acetaminophen; Complete Time: 05:27 ea 09/21 03:43 Order name: Urine Drug Screen; Complete Time: 04:25 EDMS 09/21 03:55 Order name: ABG Arterial Blood Gas; Complete Time: 04:25 EDMS 09/21 04:02 Order name: XRAY Chest (1 view) rn 09/21 04:03 Order name: Urine Dipstick--Ancillary (enter results) cc 09/21 04:07 Order name: AMMONIA; Complete Time: 05:27 rn 09/21 04:29 Order name: Valproic Acid (Depakene) Level; Complete Time: 05:27 EDMS 09/21 03:37 Order name: EKG; Complete Time: 03:38 rn 09/21 03:37 Order name: IV Saline Lock; Complete Time: 04:30 rn 09/21 03:37 Order name: Labs collected and sent; Complete Time: 04:30 rn 09/21 03:37 Order name: Urine Dipstick-Ancillary (obtain specimen); Complete Time: 05:01 rn 09/21 03:37 Order name: Otoniel Tube; Complete Time: 04:30 rn 09/21 03:43 Order name: Labs collected and sent; Complete Time: 04:39 ea 09/21 03:43 Order name: Urine Dipstick-Ancillary (obtain specimen); Complete Time: 04:04 ea 09/21 03:43 Order name: EKG - Nurse/Tech; Complete Time: 05:01 ea 09/21 03:43 Order name: IV Saline Lock; Complete Time: 04:38 ea 09/21 03:43 Order name: EKG; Complete Time: 03:43 ea 09/21 04:52 Order name: Respiratory Therapy Consult EDMS 09/21 04:52 Order name: NPO; Complete Time: 05:01 EDMS Administered Medications: 03:30 Drug: NS 0.9% 1000 ml Route: IV; Rate: 1000 ml; Site: right hand; lp1 04:00 Follow up: IV Status: Completed infusion; IV Intake: 1000ml lp1 03:30 Drug: NS 0.9% 1000 ml Route: IV; Rate: 1000 ml; Site: left antecubital; lp1 04:45 Follow up: IV Status: Completed infusion aa1 03:32 Drug: Etomidate 20 mg Route: IVP; Site: right hand; lp1 03:35 Follow up: Response: No adverse reaction lp1 03:32 Drug: Succinylcholine 120 mg Route: IVP; Site: right hand; lp1 03:35 Follow up: Response: No adverse reaction lp1 04:00 Drug: Propofol 5 mcg/kg/min Route: IV; Rate: calculated rate; Site: left antecubital; lp1 05:35 Follow up: IV Status: Infusion continued upon admission aa1 07:00 Follow up: Drip currently at 7mcg/kg/min aa5 08:00 Follow up: IV Status: Infusion continued upon admission aa5 04:50 Drug: NS 0.9% 1000 ml Route: IV; Rate: 200 ml/hr; Site: left wrist; aa1 05:35 Follow up: IV Status: Infusion continued upon admission aa1 08:00 Follow up: IV Status: Infusion continued upon admission aa5 Disposition: 09/21/17 04:44 Hospitalization ordered by Marion Davila for Inpatient Admission. Preliminary diagnosis are Suicidal ideations, Suicide attempt, Respiratory failure, unspecified. - Bed requested for Intensive Care Unit. - Status is Inpatient Admission. aa5 - Condition is Fair. - Problem is new. - Symptoms have improved. UTI on Admission? No Signatures: Dispatcher [employer] EDMS Delilah Sanches, RN RN aa1 Rosy Young ds1 Alberto Martínez MD MD rn Calderon, Audri RN RN aa5 Laura Walker Laura, RN RN lp1 Vaishnavi Mendez RN RN ea Corrections: (The following items were deleted from the chart) 04:04 03:43 Urine Test ordered. ea cc 04:39 03:37 EKG - Nurse/Tech ordered. rn lp1 04:52 04:29 VALPROIC ACID (DEPAKOTE)+C.LAB.BRZ ordered. EDSC EDMS 05:28 04:44 Hospitalization Ordered by Marion Davila MD for Inpatient Admission. Preliminary ds1 diagnosis is Suicidal ideations; Suicide attempt; Respiratory failure, unspecified. Bed requested for Intensive Care Unit. Status is Inpatient Admission. Condition is Fair. Problem is new. Symptoms have improved. UTI on Admission? No. rn 05:28 05:28 09/21/2017 04:44 Hospitalization Ordered by Marion Davila MD for Inpatient ds1 Admission. Preliminary diagnosis is Suicidal ideations; Suicide attempt; Respiratory failure, unspecified. Bed requested for Intensive Care Unit. Status is Inpatient Admission. Condition is Fair. Problem is new. Symptoms have improved. UTI on Admission? No. ds1 05:32 05:28 09/21/2017 04:44 Hospitalization Ordered by Marion Davila MD for Inpatient cc Admission. Preliminary diagnosis is Suicidal ideations; Suicide attempt; Respiratory failure, unspecified. Bed requested for Intensive Care Unit. Status is Inpatient Admission. Condition is Fair. Problem is new. Symptoms have improved. UTI on Admission? No. ds1 08:31 05:32 09/21/2017 04:44 Hospitalization Ordered by Marion Davila MD for Inpatient aa5 Admission. Preliminary diagnosis is Suicidal ideations; Suicide attempt; Respiratory failure, unspecified. Bed requested for Intensive Care Unit. Status is Inpatient Admission. Condition is Fair. Problem is new. Symptoms have improved. UTI on Admission? No. cc
--- NOTE | 2017-09-21 04:45 | ER ---
Nurse's Notes [facility] Name: Feliz Linares Jr Age: 36 yrs Sex: Male : 1980 Arrival Date: 09/21/2017 Time: 03:32 Bed 3 Private MD: Diagnosis: Suicidal ideations;Suicide attempt;Respiratory failure, unspecified Presentation: 09/21 03:20 Presenting complaint: EMS states: Patient called EMS, stating he wanted to ; EMS lp1 arrived and found patient unresponsive with empty pill bottles of Seroquel 25mg tabs, Seroquel 300mg tabs, Depakote 250mg tabs; Patient took approx 150 pills total; Hx of mental health; Unknown ingestion time. Transition of care: patient was not received from another setting of care. Onset of symptoms was September 21, 2017. Risk Assessment: Do you want to hurt yourself or someone else? Patient reports no desire to harm self or others. Initial Sepsis Screen: Does the patient meet any 2 criteria? No. Patient's initial sepsis screen is negative. Does the patient have a suspected source of infection? No. Patient's initial sepsis screen is negative. Care prior to arrival: Medication(s) given: Normal saline infusion, 1000 mL, Narcan 4mg IV initiated. 18 GA, in the right hand, Glucose check: 141 Oxygen administered. via a non-rebreather mask. 03:20 Method Of Arrival: EMS: [facility] lp1 03:20 Acuity: ALYSSA 2 lp1 04:00 Note Mental Health officer states patient has hx of calling and threatening to harm lp1 self; States patient may have ingested pills about 0200. Historical: - Allergies: 04:16 LITHIUM DERIVITIVES; lp1 - Home Meds: 04:16 Unable to obtain [Active]; lp1 - PMHx: 04:16 ADD/ADHD; Bipolar disorder; Depression; Hypertension; lp1 04:26 Seizures; lp1 - PSHx: 04:16 Unable to obtain; lp1 - Immunization history:: Adult Immunizations unknown. - Social history:: Smoking status: unknown. - Ebola Screening: : No symptoms or risks identified at this time. - History obtained from: EMS. - Unable to obtain history due to: unresponsive. Screenin:35 Abuse screen: unable to obtain. Nutritional screening: No deficits noted. Tuberculosis aa1 screening: unable to obtain. Fall Risk None identified. Assessment: 03:20 General: Appears unkempt, Behavior is unresponsive. Smells of alcohol. Pain: Unable to aa1 use pain scale. Patient is unresponsive. Neuro: Level of Consciousness is unresponsive, Reaction to noxious stimuli is none. Cardiovascular: Heart tones S1 S2 present Rhythm is sinus tachycardia. Respiratory: Airway is patent Respiratory effort is shallow, Respiratory pattern is snoring. GI: Abdomen is round. Derm: Skin is intact, is healthy with good turgor, Skin is pink, warm \T\ dry. Musculoskeletal: Capillary refill < 3 seconds. 03:35 Respiratory: Airway via oral intubation Trachea midline Respiratory effort is assisted aa1 with ventilation Respiratory pattern is symmetrical, Breath sounds are clear bilaterally. 04:20 Reassessment: Poison Control contacted, spoke with Elo; Recommends to repeat lp1 Tylenol and ASA levels at 0600, watch for prolonged QT interval, repeat Depakote level Q6h, monitor electrolytes and replace if needed; continue supportive care. 04:30 Reassessment: Patient appears in no apparent distress at this time. No changes from aa1 previously documented assessment. Awaiting admission orders at this time. 05:31 Reassessment: Patient appears in no apparent distress at this time. No changes from aa1 previously documented assessment. Awaiting ICU bed. 05:45 Reassessment: Bed assignment received however, per warehouse supervisor pt is unable to go aa1 to ICU at this time due to no nurse available on unit to assume care of pt. Pt may go up to unit after shift change. 06:13 Reassessment: Patient appears in no apparent distress at this time. No changes from aa1 previously documented assessment. Dr. Davila at bedside for pt assessment. 07:05 General: Behavior is sedated and intubated . Warming measures per bear hugger at this aa5 time. OG tube noted to low intermittent suction, gastric contents noted. . Pain: Unable to use pain scale. Patient is intubated. Neuro: Level of Consciousness is sedated and orally intubated. Pupils are round, equal, and reactive to light. Pt unable to follow commands. . Cardiovascular: Heart tones S1 S2 present Capillary refill < 3 seconds is brisk in bilateral fingers toes Rhythm is sinus tachycardia. Respiratory: Airway via oral intubation Respiratory pattern is symmetrical, Breath sounds are clear bilaterally. ET tube 24 at the teeth. GI: Abdomen is round non-distended, Bowel sounds present X 4 quads. Abd is soft X 4 quads. : Love in place to gravity drainage Urine is clear. Derm: Skin is pink, warm \T\ dry. 08:00 Neuro: Level of Consciousness is sedated and intubated . Cardiovascular: Rhythm is aa5 sinus tachycardia. Respiratory: Airway via oral intubation Respiratory pattern is symmetrical, Breath sounds are clear bilaterally. Derm: Skin is pink, warm \T\ dry. 08:15 Reassessment: Mekhi black shoes, jeans, 3 empty medication bottles, and $29.10 fraser aa5 given to security. Witnessed by Magaly Riojas RN and personal belongings list completed and included in pt's chart (see pt's chart for witness signatures and security signature upon receiving these pt's belongings). Grace Rodriguez RN (ICU nurse) was notified of this. . Psych: 04:15 Subjective: Patient unresponsive on arrival to ED; Mental health states sad about lp1 break-up with girlfriend Kirsty. Objective: Patient is Unresponsive, intubated. Interventions: Patient placed in hospital gown. Urine collected and sent for urine drug test. Suicide Risk Assessment: Sad Person Scale: Sex of patient: Male: Score 1 point. Age of patient: Score 0 point if patient falls outside of specified age parameters. Depression: Score 1 point if signs of depression are present. Previous Attempt: Score 1 point if patient has previously attempted suicide. Substance Abuse: Score 1 point if patient abuses alcohol or drugs. Rational Thinking: Score 1 point if patient is lacking rational thinking. Social Support: Score 1 point if social support is lacking and/or unavailable. Organized Plan: Score 1 point if patient had a plan in place. Relationship: Score 1 point if patient is , , , or for a single male Chronic Sickness: Score 0 point if patient does not have a chronic illness, debilitating, or severe disorder. TOTAL POINTS: If total points are 7-10, the proposed clinical action is to hospitalize or commit. Implement suicide precautions. 04:15 Safety Checks: Personal items have been removed. Door is open. No visitors are present lp1 at this time. Unknown substance abuse. 07:00 Commitment: Pt sedated and intubated at this time. aa5 Vital Signs: 03:20 BP 104 / 62; Pulse 145; Resp 10; Pulse Ox 95% on 40% Venturi mask; Weight 99.79 kg; lp1 03:30 BP 103 / 67; Pulse 144; Resp 12; Pulse Ox 96% on 40% Venturi mask; lp1 03:50 BP 110 / 73; Pulse 123; Resp 14; Temp 96.6(C); Pulse Ox 99% on 50% FiO2 ETT vent; lp1 04:45 BP 98 / 56; Pulse 113; Resp 16; Temp 95.6(C); Pulse Ox 100% on ETT vent; aa1 05:36 BP 97 / 64; Pulse 110; Resp 16; Temp 95.5(C); Pulse Ox 100% on ETT vent; aa1 06:13 BP 97 / 71; Pulse 120; Resp 18; Temp 96.0(C); Pulse Ox 100% on ETT vent; aa1 07:00 BP 87 / 60; Pulse 121; Resp 16 A; Temp 96.9(C); Pulse Ox 100% on ETT vent; aa5 07:15 BP 91 / 62; Pulse 122; Resp 16 A; Temp 96.9(C); Pulse Ox 100% on ETT vent; aa5 07:30 BP 91 / 54; Pulse 117; Resp 16 A; Temp 97.0(C); Pulse Ox 100% on ETT vent; aa5 07:45 BP 92 / 58; Pulse 120; Resp 16 A; Temp 97.2(C); Pulse Ox 100% on ETT vent; aa5 08:00 BP 96 / 52; Pulse 120; Resp 16 A; Temp 97.3(C); Pulse Ox 100% on ETT vent; aa5 ED Course: 03:20 Maintain EMS IV. Dressing intact. Good blood return noted. Site clean \T\ dry. Gauge \T\ lp 1 site: 18g R hand. 03:30 Inserted saline lock: 18 gauge in left antecubital area, using aseptic technique. Blood lp1 collected. By Chastity Robles RN. 03:32 Patient arrived in ED. ds1 03:33 Assisted provider with intubation using 7.5 mm ETT via oral route. ET tube secured at lp1 24cm at the teeth. Set up intubation tray. Intubated by Alberto Martínez MD Placement verified by CXR, CO2 detector w/ + color change, auscultating bilateral breath sounds. 03:37 Alberto Martínez MD is Attending Physician. rn 03:37 Inserted saline lock: 20 gauge in left hand, using aseptic technique. By Chastity Robles RN. 03:39 Love cath inserted, using sterile technique, 16 Fr., balloon inflated, to gravity lp1 drainage, urine specimen collected. By ROMEO Mazariegos. 03:45 Assisted provider with central line placement. Set up central line tray. Triple lumen lp1 line placed in right femoral. Line placed by Alberto Martínez MD Placement verified by blood return, Dressed with Tegaderm. 03:47 Otoniel inserted orally. Placement verified return of gastric contents, Small pill lp1 fragments noted. 03:47 Gastric lavage via Otoniel tube with tap water until clear returned clear fluid, pill aa1 fragments. 04:13 Triage completed. lp1 04:13 Arm band placed on right wrist. lp1 04:17 X-ray completed. Portable x-ray completed in exam room. la2 04:19 XRAY Chest (1 view) In Process Unspecified. EDMS 04:30 Patient has correct armband on for positive identification. Placed in gown. Bed in low lp1 position. Side rails up X2. senior java programmer analyst on. Pulse ox on. NIBP on. 04:30 Thermoregulation: Chrissy blanket applied. aa1 04:32 One-on-one care X 60 minutes. aa1 04:43 Marion Davila MD is Hospitalizing Provider. rn 04:59 Delilah Sanches RN is Primary Nurse. aa1 05:24 Thermoregulation: warm intravenous fluids. aa1 05:32 One-on-one care X 60 minutes. aa1 05:34 Patient admitted, IV remains in place. aa1 07:00 Report given to Nicki Casiano RN. aa1 07:52 Nicki Casiano, RN is Primary Nurse. aa5 Administered Medications: 03:30 Drug: NS 0.9% 1000 ml Route: IV; Rate: 1000 ml; Site: right hand; lp1 04:00 Follow up: IV Status: Completed infusion; IV Intake: 1000ml lp1 03:30 Drug: NS 0.9% 1000 ml Route: IV; Rate: 1000 ml; Site: left antecubital; lp1 04:45 Follow up: IV Status: Completed infusion aa1 03:32 Drug: Etomidate 20 mg Route: IVP; Site: right hand; lp1 03:35 Follow up: Response: No adverse reaction lp1 03:32 Drug: Succinylcholine 120 mg Route: IVP; Site: right hand; lp1 03:35 Follow up: Response: No adverse reaction lp1 04:00 Drug: Propofol 5 mcg/kg/min Route: IV; Rate: calculated rate; Site: left antecubital; lp1 05:35 Follow up: IV Status: Infusion continued upon admission aa1 07:00 Follow up: Drip currently at 7mcg/kg/min aa5 08:00 Follow up: IV Status: Infusion continued upon admission aa5 04:50 Drug: NS 0.9% 1000 ml Route: IV; Rate: 200 ml/hr; Site: left wrist; aa1 05:35 Follow up: IV Status: Infusion continued upon admission aa1 08:00 Follow up: IV Status: Infusion continued upon admission aa5 Intake: 04:00 IV: 1000ml; Total: 1000ml. lp1 Output: 08:00 Urine: 500ml (Love); Total: 500ml. aa5 Ventilator: 03:40 Fi02: 50%; Rate: 16min; T.V.: 500ml; Peep: 0cm; lp1 Outcome: 04:44 Decision to Hospitalize by Provider. rn 08:05 Admitted to ICU accompanied by nurse, accompanied by tech, via stretcher, on monitor, aa5 with chart, Other with RT administering O2 via ambu bag per ET tube Report called to Grace Rodriguez RN 08:05 Condition: stable 08:05 Instructed on N/A, pt intubated 08:15 Patient left the ED. aa5 Signatures: Dispatcher [employer] EDMS Delilah Sanches RN RN aa1 Rosy Young ds1 Alberto Martínez MD MD rn Calderon, Audri, RN RN aa5 Dian Hernandez RN RN lp1 Dia Guzman2 Corrections: (The following items were deleted from the chart) 04:14 03:20 Care prior to arrival: Medication(s) given: Narcan 4mg IV initiated. 18 GA, in lp1 the right hand, Glucose check: 141 Oxygen administered. via a non-rebreather mask, lp1 08:35 08:31 Patient left the ED. aa5 aa5
[2017-09-21 04:47] LABS: ALT/SGPT 131 U/L (12-78); AST/SGOT 53 U/L (15-37); Albumin 3.8 g/dL (3.4-5.0); Alkaline Phosphatase 82 U/L (45-117); BUN Blood Urea Nitrogen 9 mg/dL (7-18); Bicarbonate 21 mmol/L (21-32); Bilirubin Direct 0.1 mg/dL (0-0.2); Bilirubin Total 0.7 mg/dL (0.2-1.0); Glucose Level 114 mg/dL (74-106); Potassium 3.3 mmol/L (3.5-5.1); Protein, Total 7.5 g/dL (6.4-8.2); Sodium Level 139 mmol/L (136-145)
[2017-09-21] MEDS ORDERED: ACETAMINOPHEN 650MG/RECT SUPP RECT PRN (04:47)
[2017-09-21] MEDS ORDERED: MAGNESIUM HYDROXIDE 8% 30 ML FT PRN (04:47)
[2017-09-21] MEDS ORDERED: NA CHLORIDE 0.9% 250 ML IV PRN (04:47)
[2017-09-21] MEDS ORDERED: ONDANSETRON 4 MG/2 ML VIAL IV PRN (04:47)
[2017-09-21] MEDS ORDERED: PROPOFOL 1,000 MG/100 ML VIAL IV PRN (04:47)
[2017-09-21 04:50] LABS: Alcohol Serum/Plasma 222 mg/dL (<3); Valproic Acid (Depakene) Level < 3.0 ug/mL (50-100)
[2017-09-21] MEDS ORDERED: NA CHLORIDE 0.9% 1,000 ML ONE (04:52)
[2017-09-21 05:56] LABS: Urine Blood NEGATIVE (NEG); Urine Glucose NEGATIVE (NEG); Urine Protein NEGATIVE (NEG); Urine Specific Gravity <1.005 (1.005-1.030); Urine pH 5.5 (5.0-7.0)
--- NOTE | 2017-09-21 08:00 | P.HP ---
Certification for Inpatient Patient admitted to: Inpatient With expected LOS: >2 Midnights Patient will require the following post-hospital care: None Practitioner: I am a practitioner with admitting privileges, knowledge of patient current condition, hospital course, and medical plan of care. Services: Services provided to patient in accordance with Admission requirements found in Title 42 Section 412.3 of the Code of Federal Regulations Patient History Date of Service: 09/21/17 Reason for admission: Overdose/respiratory failure/hypotension/tachycardic/ hypothermic History of Present Illness: Patient is a 36-year-old gentleman who overdosed after his left him. Patient had questionable suicidal ideations a year ago. However he was discharged from the hospital at that time. Patient apparently has not had great follow with [facility]. He did have a bottle of Seroquel 325 mg that he spends take daily. He also had a prescription for Depakote. All of these bottles were completely empty. According to mental health deputy patient had emptied those bottles prior to them arriving and he had taken all the pills in all 3 bottles. A shorter as to the exact quantity of pills but he will took roughly 60 Depakote pills. The Seroquel prescription have been there since May some not exactly sure have many of those he ingested. They did attempt charcoal however they got a few pill particles. At this time she will remain intubated, and will aggressively hydrate him and monitor him hemodynamically. We have a Chrissy Hugger to warm him. We can irrigate his bladder with warm fluids as necessary. Check thyroid studies as well. No family member have been at bedside at this time. Prognosis remains guarded. Allergies lithium [Bond] Adverse Reaction (Mild, Unverified 08/12/11 17:02) Hive LITHIUM DERIVIT Allergy (Uncoded 08/23/16 07:23) Unknown - Past Medical/Surgical History -: Unknown-per chart he has had a prior suicide attempt -: Unknown - Family History Father Notes: Unknown - Social History Smoking Status: Unknown if ever smoked Review of Systems is unable to be obtained (Patient is sedated and intubated) Physical Examination - Vital Signs Temperature: 96 F Blood Pressure: 90/50 Pulse: 119 Respirations: 12 Pulse Ox (%): 98 - Physical Exam General: Unresponsive, Other (Intubated and sedated) HEENT: Atraumatic, Normocephalic, Other (Pupils are sluggish) Neck: 2+ carotid pulse no bruit, JVD not distended Respiratory: Clear to auscultation bilaterally, Diminished Cardiovascular: Regular rate/rhythm, Normal S1 S2, No murmurs Gastrointestinal: Normal bowel sounds, Soft and benign, Non-distended, No tenderness Musculoskeletal: No clubbing, No swelling Integumentary: No rashes, No breakdown Neurological: Abnormal gait, Abnormal speech, Abnormal strength, Abnormal tone, Abnormal sensation, Abnormal cranial nerve function Lymphatics: No axilla or inguinal lymphadenopathy - Studies Laboratory Data (last 24 hrs) 09/21/17 03:37: PT Cancelled, INR Cancelled, APTT Cancelled 09/21/17 03:37: WBC Cancelled, Hgb Cancelled, Hct Cancelled, Plt Count Cancelled 09/21/17 03:37: Sodium Cancelled, Potassium Cancelled, BUN Cancelled, Creatinine Cancelled, Glucose Cancelled, Total Bilirubin Cancelled, AST Cancelled, ALT Cancelled, Alkaline Phosphatase Cancelled 09/21/17 03:30: WBC 7.6, Hgb 17.1, Hct 48.5, Plt Count 188 09/21/17 03:30: Sodium 139, Potassium 3.3 L, BUN 9, Creatinine 1.00, Glucose 114 H, Total Bilirubin 0.7, AST 53 H, ALT 131 H, Alkaline Phosphatase 82 09/21/17 03:30: PT 14.3 H, INR 1.21, APTT 30.7 Assessment & Plan - Problems (Diagnosis) (1) Overdose Current Visit: Yes Status: Acute (2) Respiratory failure Current Visit: Yes Status: Acute (3) Hypotension Current Visit: Yes Status: Acute (4) Hypothermia Current Visit: Yes Status: Acute (5) Tachycardia Current Visit: Yes Status: Acute - Plan Plan: 1. Need to get a senior care to keep patient in hospital when he awakens 2. Aggressive IV hydration 3. Monitor hemodynamics and cardiac status closely 4. Monitor electrolytes closely 5. Sedation with propofol drip 6. MR eval once patient is medically stable 7. Warming measures as necessary 8. Keep in close contact with poison control 9. Monitor valproic acid level 10. DVT prophylaxis Discharge Plan: Psychiatry Plan to discharge in: Greater than 2 days - Advance Directives Does patient have a Living Will: No Does patient have a Durable POA for Healthcare: No - Code Status/Comfort Care Code Status Assessed: Yes Code Status: Full Code Critical Care: Yes Time Spent Managing PTS Care (In Minutes): 60
[2017-09-21] MEDS: NA CHLORIDE 0.9% 1,000 ML IV SCH ×2 (09:13→16:21)
[2017-09-21] MEDS: ENOXAPARIN 40 MG/0.4 ML SQ SCH (09:17)
--- NOTE | 2017-09-21 09:31 | RAD REPORT ---
EXAM DESCRIPTION: Carolyn Single View09/21/2017 4:18 am CLINICAL HISTORY: Shortness of breath/overdose COMPARISON: none FINDINGS: Endotracheal tube has its tip well above the ramesh. A nasogastric tube has its tip in sto mach Mild bilateral pulmonary opacities are present. . The heart is normal size IMPRESSION: Mild bilateral pulmonary opacities may represent pulmonary edema or aspiration pneumonit is
[2017-09-21] MEDS ORDERED: SUCCINYLCHOLINE 20 MG/ML (10 ML) IV ONE (10:19)
[2017-09-21] MEDS ORDERED: ETOMIDATE 20 MG/10 ML VIAL IV ONE (10:19)
--- NOTE | 2017-09-21 10:32 | EKG ---
Test Date: 2017-09-21 Test Time: 04:18:07 Internal Investigator: ADDIE MEASUREMENT RESULTS: Intervals: Rate: 125 HI: 142 QRSD: 94 QT: 324 QTc: 467 [place]: P: 59 HI: 142 QRS: -6 T: 64 INTERPRETIVE STATEMENTS: Sinus tachycardia Possible Left atrial enlargement Borderline ECG Compared to ECG 08/21/2016 00:08:29 No significant changes Electronically Signed On 09-21-17 10:31:25 CDT by Gage Nguyen
--- NOTE | 2017-09-21 15:00 | RAD REPORT ---
EXAM DESCRIPTION: CT - Head Brain Wo Cont - 09/21/2017 2:43 pm CLINICAL HISTORY: Alteration of awareness/ unresponsive COMPARISON: 2011 TECHNIQUE: Computed axial tomography of the head was obtained. IV contrast was not requested. All CT scans are performed using dose optimization technique as appropriate and may include automated exposure control or mA/KV adjustment according to patient size. FINDINGS: An intracranial bleed is not seen . The ventricles are normal in caliber. No extra-axial fluid collection is noted. Fluid within the sinuses/ mastoids is not seen. IMPRESSION: No acute intracranial abnormality is seen. If patient's symptoms persist MRI of the bra in would be recommended.
[2017-09-21] MEDS: KCL 20 MEQ/100 mL IVPB 20 MEQ/100 ML BAG IV SCH ×2 (16:21→18:25)
[2017-09-21] MEDS ORDERED: MAGNESIUM SULFATE 1 gm IVPB 1 GM/100 ML BAG IV ONE (17:08)
[2017-09-21] MEDS: FENTANYL CITR 100 MCG/2 ML IV PRN (20:14)
[2017-09-22] MEDS: FENTANYL CITR 100 MCG/2 ML IV PRN ×4 (00:09→23:36)
[2017-09-22] MEDS ORDERED: PROPOFOL 1,000 MG/100 ML VIAL IV ONE (00:29)
[2017-09-22] MEDS ORDERED: PROPOFOL 1,000 MG/100 ML VIAL IV PRN (00:30)
[2017-09-22] MEDS: NA CHLORIDE 0.9% 1,000 ML IV SCH ×3 (05:13→22:40)
[2017-09-22 05:59] LABS: Albumin 3.1 g/dL (3.4-5.0); Bilirubin Total 0.9 mg/dL (0.2-1.0); Potassium 4.3 mmol/L (3.5-5.1); Protein, Total 6.6 g/dL (6.4-8.2)
--- NOTE | 2017-09-22 08:01 | P.PN ---
Subjective Date of Service: 09/22/17 Patient became more awake and aggressive. We went ahead restarted propofol drip. Should be able to give patient weaned off and extubated in the morning. Pulmonary status is stable. Biggest concern would be how he responds neurologically. Review of Systems 10-point ROS is otherwise unremarkable Physical Examination - Vital Signs Temperature: 97.9 F Blood Pressure: 111/63 Pulse: 89 Respirations: 12 Pulse Ox (%): 97 - Physical Exam General: Confused, Delirious, Unresponsive, Other (Combative and intubated) Respiratory: Clear to auscultation bilaterally, Normal air movement Cardiovascular: Regular rate/rhythm, Normal S1 S2 Gastrointestinal: Soft and benign, Non-distended Musculoskeletal: No clubbing, No swelling Assessment & Plan - Problems (Diagnosis) (1) Overdose Current Visit: Yes Status: Acute (2) Respiratory failure Current Visit: Yes Status: Acute (3) Hypotension Current Visit: Yes Status: Acute (4) Hypothermia Current Visit: Yes Status: Acute (5) Tachycardia Current Visit: Yes Status: Acute - Plan Plan: 1. Resume IV propofol for sedation 2. Pulmonary consultation in a.m. for ventilator management and assistance with extubation 3. Monitor hemodynamics and cardiac status closely 4. Monitor electrolytes closely 5. MR eval once patient is medically stable - Advance Directives Does patient have a Living Will: No Does patient have a Durable POA for Healthcare: No - Code Status/Comfort Care Code Status: Full Code Critical Care: No Time Spent Managing PTS Care (In Minutes): 40
[2017-09-22] MEDS: ENOXAPARIN 40 MG/0.4 ML SQ SCH (08:39)
--- NOTE | 2017-09-22 09:59 | P.PN ---
Subjective Date of Service: 09/22/17 Chief Complaint: Overdose/respiratory failure/hypotension/tachycardic/ hypothermic Pt seen and examined at bedside. Pt is currently doing well. Extubated now and doing well post extubation. Awaiting [facility] evaluation for inpatient placement. Review of Systems General: As per HPI Physical Examination - Vital Signs Temperature: 97.9 F Blood Pressure: 111/63 Pulse: 89 Respirations: 12 Pulse Ox (%): 97 - Physical Exam General: Alert, In no apparent distress HEENT: Atraumatic, PERRLA, EOMI Neck: Supple, JVD not distended Respiratory: Clear to auscultation bilaterally, Normal air movement Cardiovascular: Regular rate/rhythm, Normal S1 S2 Gastrointestinal: Normal bowel sounds, No tenderness Musculoskeletal: No tenderness Integumentary: No rashes Neurological: Normal speech, Normal tone, Normal affect Lymphatics: No axilla or inguinal lymphadenopathy - Studies Medications List Reviewed: Yes Assessment & Plan - Problems (Diagnosis) (1) Respiratory failure Onset Date: 09/22/17 Current Visit: Yes Status: Acute Plan: Acute RF due to Overdose of Seraquoel -Now extubated and doing well -Pulmonology consulted. Reccs appreciated -Continue to monitor closely Qualifiers: Chronicity: acute Respiratory failure complication: hypoxia Qualified Code(s): J96.01 - Acute respiratory failure with hypoxia (2) Overdose Onset Date: 09/22/17 Current Visit: Yes Status: Acute Plan: Overdose of Seraquoel in a suicidal Attempt -Poison control informed -CBC, CMP daily and monitor Liver function and cardiac Monitoring -[facility] consulted for inpatient Placement Qualifiers: Encounter type: initial encounter Injury intent: intentional self-harm Qualified Code(s): T50.902A - Poisoning by unspecified drugs, medicaments and biological substances, intentional self-harm, initial encounter (3) Hypothermia Onset Date: 09/22/17 Current Visit: Yes Status: Acute Plan: Hypothermia noted in the ER. Now temp WNL -Bear hugger and warm IV fluids -Monitor closely Qualifiers: Encounter type: initial encounter Qualified Code(s): T68.XXXA - Hypothermia , initial encounter (4) Alcohol abuse Current Visit: Yes Status: Chronic Discharge Plan: Home Plan to discharge in: Greater than 2 days - Code Status/Comfort Care Code Status Assessed: Yes Critical Care: Yes (>45mins)
[2017-09-22] MEDS: chlordiazePOXIDE HCl 25 MG CAP PO SCH ×3 (12:00→23:37)
[2017-09-22] MEDS ORDERED: LORazepam 2 MG/ML VIAL IV ONE ×2 (20:33→22:08)
[2017-09-22] MEDS ORDERED: LORazepam 2 MG/ML VIAL ONE ×2 (20:46→22:03)
[2017-09-23] MEDS ORDERED: HALOPERIDOL LACT 5 MG/ML INJ IV PRN ×2 (00:29→01:07)
[2017-09-23] MEDS ORDERED: HALOPERIDOL LACT 5 MG/ML INJ ONE (00:32)
[2017-09-23] MEDS ORDERED: LORazepam 2 MG/ML VIAL IV ONE (04:16)
[2017-09-23] MEDS ORDERED: LORazepam 2 MG/ML VIAL ONE (04:17)
[2017-09-23 05:26] LABS: Absolute Lymphocytes (CBC) 1.2 K/uL (0.7-4.9); Absolute Monocytes 1.2 K/uL (0.1-1.3); Absolute Neutrophil 7.6 K/uL (1.8-8.0); Basophils % 0.3 % (0-1.3); Eosinophils % 0.7 % (0-4.4); Lymphocytes % 12.2 % (15.3-44.8); MCH 31.7 pg (27.0-35.0); MCV 90.2 fL (80-100); MPV 9.7 fL (7.6-11.3); Monocytes % 11.9 % (3.3-12.3); RBC Red Blood Cell Count 4.99 M/uL (4.33-5.43)
[2017-09-23 05:34] LABS: Albumin 3.4 g/dL (3.4-5.0); Bilirubin Total 1.4 mg/dL (0.2-1.0); Phosphorus 2.3 mg/dL (2.5-4.9); Protein, Total 7.5 g/dL (6.4-8.2)
[2017-09-23] MEDS ORDERED: POTASSIUM PHOS IN 0.9 % NACL 15 MMOL/250 ML BAG IV ONE (05:44)
[2017-09-23] MEDS: NA CHLORIDE 0.9% 1,000 ML IV SCH ×2 (05:57→17:38)
[2017-09-23] MEDS: chlordiazePOXIDE HCl 25 MG CAP PO SCH ×3 (05:57→16:17)
--- NOTE | 2017-09-23 06:50 | EKG ---
Test Date: 2017-09-22 Test Time: 09:10:41 Branch Operations Manager: ABEL MEASUREMENT RESULTS: Intervals: Rate: 99 SC: 146 QRSD: 94 QT: 348 QTc: 446 [place]: P: 47 SC: 146 QRS: 8 T: 32 INTERPRETIVE STATEMENTS: Normal sinus rhythm Normal ECG Compared to ECG 09/21/2017 04:18:07 Sinus tachycardia no longer present Electronically Signed On 09-23-17 06:49:58 CDT by Gage Nguyen
[2017-09-23] MEDS: ENOXAPARIN 40 MG/0.4 ML SQ SCH (08:21)
[2017-09-23] MEDS: FENTANYL CITR 100 MCG/2 ML IV PRN (10:04)
[2017-09-23] MEDS ORDERED: FLUMAZENIL 0.1 MG/ML (5 mL VIAL) IV PRN (10:38)
[2017-09-23] MEDS: LORazepam 2 MG/ML VIAL IV SCH ×4 (10:47→22:25)
[2017-09-23 18:24] VITALS: BMI 30.7
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
[2017-09-24] MEDS: LORazepam 2 MG/ML VIAL IV PRN ×2 (00:15→04:30)
[2017-09-24] MEDS: LORazepam 2 MG/ML VIAL IV SCH ×6 (02:26→20:55)
[2017-09-24] MEDS: NA CHLORIDE 0.9% 1,000 ML IV SCH ×3 (02:27→23:00)
[2017-09-24 05:57] LABS: ALT/SGPT 82 U/L (12-78); AST/SGOT 49 U/L (15-37); Albumin 3.4 g/dL (3.4-5.0); Alkaline Phosphatase 90 U/L (45-117); BUN Blood Urea Nitrogen 11 mg/dL (7-18); Bicarbonate 24 mmol/L (21-32); Bilirubin Total 1.4 mg/dL (0.2-1.0); Glucose Level 74 mg/dL (74-106); Magnesium 2.1 mg/dL (1.8-2.4); Phosphorus 2.7 mg/dL (2.5-4.9); Protein, Total 7.8 g/dL (6.4-8.2); Sodium Level 135 mmol/L (136-145)
[2017-09-24] MEDS: chlordiazePOXIDE HCl 25 MG CAP PO SCH ×4 (06:00→17:00)
[2017-09-24 06:15] LABS: Absolute Lymphocytes (CBC) 1.5 K/uL (0.7-4.9); Absolute Monocytes 1.2 K/uL (0.1-1.3); Absolute Neutrophil 6.1 K/uL (1.8-8.0); Basophils % 0.5 % (0-1.3); Eosinophils % 1.6 % (0-4.4); Hematocrit 45.5 % (39.6-49.0); Lymphocytes % 16.4 % (15.3-44.8); MCH 31.5 pg (27.0-35.0); MCV 88.8 fL (80-100); MPV 10.3 fL (7.6-11.3); Monocytes % 13.3 % (3.3-12.3); RBC Red Blood Cell Count 5.12 M/uL (4.33-5.43)
[2017-09-24] MEDS ORDERED: ZIPRASIDONE MESYLA 20 MG/VIAL IM ONE ×2 (08:45→21:00)
[2017-09-24] MEDS ORDERED: WATER FOR INJ,STERILE 10 ML IM PRN ×2 (08:45→17:31)
[2017-09-24] MEDS: ENOXAPARIN 40 MG/0.4 ML SQ SCH (08:51)
[2017-09-24] MEDS: FOLIC ACID 1 MG, MULTIVITAMINS INJ 10 ML, THIAMINE HCL 100 MG in NA CHLORIDE 0.9% 1,000 ML IV SCH (08:52)
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
[2017-09-24] MEDS: NICOTINE 21 MG/PAT TD SCH (16:47)
[2017-09-24] MEDS ORDERED: LIDOCAINE VISCOUS 2% SOLN 15 ML UDC PO PRN (17:30)
[2017-09-25] MEDS: chlordiazePOXIDE HCl 25 MG CAP PO SCH ×4 (00:35→21:36)
[2017-09-25] MEDS: LORazepam 2 MG/ML VIAL IV SCH ×2 (00:35→05:30)
[2017-09-25] MEDS: NA CHLORIDE 0.9% 1,000 ML IV SCH ×2 (00:35→08:31)
[2017-09-25 04:57] LABS: Absolute Lymphocytes (CBC) 1.3 K/uL (0.7-4.9); Absolute Neutrophil 4.7 K/uL (1.8-8.0); Basophils % 0.6 % (0-1.3); Hematocrit 47.7 % (39.6-49.0); Lymphocytes % 17.7 % (15.3-44.8); MCH 31.4 pg (27.0-35.0); MCV 89.8 fL (80-100); MPV 8.9 fL (7.6-11.3); Monocytes % 13.9 % (3.3-12.3)
[2017-09-25 05:19] LABS: ALT/SGPT 78 U/L (12-78); AST/SGOT 45 U/L (15-37); Albumin 3.4 g/dL (3.4-5.0); Alkaline Phosphatase 90 U/L (45-117); BUN Blood Urea Nitrogen 10 mg/dL (7-18); Bicarbonate 25 mmol/L (21-32); Bilirubin Total 0.8 mg/dL (0.2-1.0); Glucose Level 91 mg/dL (74-106); Potassium 3.8 mmol/L (3.5-5.1); Sodium Level 139 mmol/L (136-145)
[2017-09-25] MEDS ORDERED: KCL 20 MEQ/100 mL IVPB 20 MEQ/100 ML BAG IV SCH (07:00)
[2017-09-25] MEDS: NICOTINE 21 MG/PAT TD SCH (08:30)
[2017-09-25] MEDS: ENOXAPARIN 40 MG/0.4 ML SQ SCH (08:31)
[2017-09-25] MEDS: FOLIC ACID 1 MG, MULTIVITAMINS INJ 10 ML, THIAMINE HCL 100 MG in NA CHLORIDE 0.9% 1,000 ML IV SCH (08:31)
--- NOTE | 2017-09-25 10:33 | P.PN ---
Subjective Date of Service: 09/25/17 Primary Care Provider: Darrell, PSYC-[facility] Chief Complaint: Overdose/respiratory failure/hypotension/tachycardic/ hypothermic Subjective: Doing well (Patient is doing better today. Patient admits suicide attempt. Patient has a history of suicide in the past. Patient with bipolar disorder. Patient stable this time.) Physical Examination - Vital Signs Temperature: 98.4 F Blood Pressure: 133/76 Pulse: 95 Respirations: 18 Pulse Ox (%): 95 - Physical Exam General: Alert, In no apparent distress, Oriented x3, Cooperative HEENT: Atraumatic Neck: Supple Respiratory: Clear to auscultation bilaterally, Normal air movement Cardiovascular: Normal pulses, Regular rate/rhythm Gastrointestinal: Normal bowel sounds, Soft and benign, Non-distended, No tenderness, No masses, No rebound, No guarding Musculoskeletal: No erythema, No warmth, Tenderness (Patient reports mild tenderness to the left wrist. No significant edema, erythema noted.) Integumentary: No tenderness/swelling, No erythema, No warmth, No cyanosis Neurological: Normal speech, Normal strength at 5/5 x4 extr, Normal tone, Abnormal affect (Patient appears depressed. Patient admits suicide attempt with Seroquel and Depakote. Patient with history of bipolar disorder.) - Studies Medications List Reviewed: Yes Assessment & Plan - Problems (Diagnosis) (1) Bipolar disorder Current Visit: Yes Status: Acute Plan: Patient has a history of bipolar disorder. Patient seen by [facility]. Patient presented to the ER with suicide attempt with Seroquel and Depakote. Patient now stable at this time. Patient admits suicide attempt. Patient with history of suicide attempt. [facility] has evaluated patient. They are recommending placement 2 psychiatric inpatient facility to further evaluate and address. Patient currently stable this time. Vital signs within normal range. Patient with history of alcohol abuse. No withdrawal noted at this time. Will get EAD to keep patient from leaving AMA. Qualifiers: Active/Remission status: currently active Current bipolar episode type: depressed Current episode severity: severe (2) Tobacco abuse Current Visit: Yes Status: Chronic Plan: Will provide nicotine patch. (3) Hypothermia Onset Date: 09/22/17 Current Visit: Yes Status: Resolved Plan: This has resolved. Qualifiers: Encounter type: initial encounter Qualified Code(s): T68.XXXA - Hypothermia , initial encounter (4) Overdose Onset Date: 09/22/17 Current Visit: Yes Status: Acute Plan: Patient had overdose with Seroquel and Depakote. Patient suicidal upon admission. Patient admits suicide attempt. Patient with history of suicide attempt the past. [facility] has evaluated patient. They are recommending inpatient psychiatric transfer. Await acceptance. Qualifiers: Encounter type: initial encounter Injury intent: intentional self-harm Qualified Code(s): T50.902A - Poisoning by unspecified drugs, medicaments and biological substances, intentional self-harm, initial encounter (5) Respiratory failure Onset Date: 09/22/17 Current Visit: Yes Status: Resolved Plan: Patient was initially intubated due to severe agitation. Patient extubated at this time. No respiratory distress noted. Room-air saturations within normal range. Qualifiers: Chronicity: acute Respiratory failure complication: hypoxia Qualified Code(s): J96.01 - Acute respiratory failure with hypoxia (6) Alcohol abuse Current Visit: Yes Status: Acute Plan: Patient had mild withdrawal during hospitalization. No withdrawal noted at this time. Patient on Librium. Will decrease Librium to 3 times a day. No significant agitation symptoms at this time. (7) Suicide attempt Current Visit: Yes Status: Acute Plan: Patient stable this time. Await transfer to inpatient psychiatric facility as recommended by [facility]. Discharge Plan: Psychiatry Plan to discharge in: 24 Hours Time Spent Managing Pts Care (In Minutes): 55
--- NOTE | 2017-09-25 10:42 | RAD REPORT ---
EXAM DESCRIPTION: RAD - Wrist Left 2 View - 09/25/2017 10:25 am CLINICAL HISTORY: Trauma, pain, soft tissue wound COMPARISON: None. FINDINGS: No fracture, dislocation or acute bone finding. No air or foreign body in the soft tissues. IMPRESSION: Negative left wrist.
[2017-09-25] MEDS: LORazepam 2 MG/ML VIAL IV PRN ×2 (11:07→18:41)
[2017-09-25] MEDS ORDERED: LORazepam 2 MG/ML VIAL IV SCH (13:00)
--- NOTE | 2017-09-25 20:28 | RAD REPORT ---
EXAM DESCRIPTION: RAD - Neck Soft Tissue - 09/25/2017 8:17 pm CLINICAL HISTORY: Neck pain FINDINGS: A radiopaque foreign body overlying the tongue is not seen. If clinically indicated furthe r evaluation with CT could be obtained
[2017-09-25] MEDS: NYSTATIN 500,000 UNIT/5 ML UDC PO SCH (21:35)
[2017-09-26 05:38] LABS: Absolute Lymphocytes (CBC) 1.6 K/uL (0.7-4.9); Absolute Monocytes 1.1 K/uL (0.1-1.3); Absolute Neutrophil 4.1 K/uL (1.8-8.0); Basophils % 0.9 % (0-1.3); Eosinophils % 5.8 % (0-4.4); Hematocrit 47.9 % (39.6-49.0); Lymphocytes % 21.7 % (15.3-44.8); MCH 31.4 pg (27.0-35.0); MCV 89.7 fL (80-100); MPV 9.4 fL (7.6-11.3); Monocytes % 15.2 % (3.3-12.3); RBC Red Blood Cell Count 5.35 M/uL (4.33-5.43)
[2017-09-26] MEDS: PANTOPRAZOLE 40MG TABLET PO SCH (05:52)
[2017-09-26 05:54] LABS: Magnesium 2.2 mg/dL (1.8-2.4); Potassium 3.3 mmol/L (3.5-5.1)
[2017-09-26] MEDS ORDERED: POTASSIUM 25 MEQ EFFERV TAB PO ONE ×2 (06:07→14:00)
[2017-09-26 06:33] LABS: Blood Morphology Comment NOT SEEN (NOT SEEN); Platelet Estimate ADEQ
[2017-09-26] MEDS: NICOTINE 21 MG/PAT TD SCH (08:01)
[2017-09-26] MEDS: THIAMINE HCL 100 MG TABLET PO SCH (08:03)
[2017-09-26] MEDS: FOLIC ACID 1 MG TABLET PO SCH (08:03)
[2017-09-26] MEDS: ENOXAPARIN 40 MG/0.4 ML SQ SCH (08:03)
[2017-09-26] MEDS: MULTIVITAMIN TAB PO SCH (08:03)
[2017-09-26] MEDS: chlordiazePOXIDE HCl 25 MG CAP PO SCH ×3 (08:03→20:12)
[2017-09-26] MEDS: NYSTATIN 500,000 UNIT/5 ML UDC PO SCH ×6 (08:05→20:11)
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
[2017-09-27 05:24] LABS: BUN Blood Urea Nitrogen 6 mg/dL (7-18); Bicarbonate 25 mmol/L (21-32); Glucose Level 102 mg/dL (74-106); Magnesium 2.2 mg/dL (1.8-2.4); Phosphorus 5.3 mg/dL (2.5-4.9); Potassium 3.8 mmol/L (3.5-5.1); Sodium Level 139 mmol/L (136-145)
[2017-09-27] MEDS: PANTOPRAZOLE 40MG TABLET PO SCH (05:55)
[2017-09-27] MEDS ORDERED: POTASSIUM 25 MEQ EFFERV TAB PO ONE (08:00)
[2017-09-27] MEDS: MULTIVITAMIN TAB PO SCH (09:16)
[2017-09-27] MEDS: FOLIC ACID 1 MG TABLET PO SCH (09:16)
[2017-09-27] MEDS: NYSTATIN 500,000 UNIT/5 ML UDC PO SCH ×5 (09:17→21:03)
[2017-09-27] MEDS: ENOXAPARIN 40 MG/0.4 ML SQ SCH (09:17)
[2017-09-27] MEDS: NICOTINE 21 MG/PAT TD SCH (09:17)
[2017-09-27] MEDS: chlordiazePOXIDE HCl 25 MG CAP PO SCH ×3 (09:17→21:03)
[2017-09-27] MEDS: THIAMINE HCL 100 MG TABLET PO SCH (09:18)
--- NOTE | 2017-09-27 13:15 | PN ---
Subjective: The patient is seen and examined. Chart reviewed and case discussed with RN. No acute events overnight. Review of Systems: Negative except as above. Medications: Reviewed. Physical Examination: Vital Signs: Temperature 97.8, heart rate 86, blood pressure 124/73, respirations 18, O2 97% on room air. General: Awake, alert, oriented x3, not in any acute distress. CV: S1, S2. No murmurs. Regular rate and rhythm. Peripheral pulses present. Respiratory: Moving air well bilaterally. No wheezing. No stridor. No use of accessory muscles. Gastrointestinal: Abdomen is soft, nontender, nondistended. Positive bowel sounds. No guarding or rigidity. Extremities: No clubbing, cyanosis, or edema. Neurologic: Nonfocal. Psych: Mood is somewhat anxious. Affect is congruent with mood. Insight and judgment are fair. Laboratory Data: Sodium 139, potassium 3.8, chloride 107, CO2 25, BUN 6, creatinine 0.9, glucose 102 , calcium 9.5, phosphorus 5.3, magnesium 2.2. Wrist x-ray shows no foreign body or fracture. Assessment And Plan: A 36-year-old male with: 1.Suicide attempt with Seroquel and Depakote. The patient does have history of previous suicide att empt. Evaluated by [facility], recommendations to place the patient in inpatient psychiatric facility. Awaiting acceptance. 2.Overdose intentional with Seroquel and Depakote. Valproic acid level is normalized. Emergency de tention still in effect. 3.Bipolar disorder. 4.Nicotine dependence. Cigarette smoking, will continue patch. 5.Acute respiratory failure with hypoxia, now extubated and doing well on room air. 6.Alcohol dependence counseled. 7.Gastrointestinal and deep venous thrombosis prophylaxis with PPI and Lovenox. Plan: Transferred to the inpatient psych facility once accepted. Continue to monitor for signs of w ithdrawal and use p.r.n. Ativan. /JUSTYNA Voice ID: [id number] Report ID: [id number]
[2017-09-28 05:58] LABS: Phosphorus 4.5 mg/dL (2.5-4.9); Potassium 3.6 mmol/L (3.5-5.1)
[2017-09-28] MEDS: PANTOPRAZOLE 40MG TABLET PO SCH (06:17)
[2017-09-28] MEDS ORDERED: POTASSIUM 25 MEQ EFFERV TAB PO ONE (06:49)
[2017-09-28] MEDS: NICOTINE 21 MG/PAT TD SCH (09:59)
[2017-09-28] MEDS: ENOXAPARIN 40 MG/0.4 ML SQ SCH (09:59)
[2017-09-28] MEDS: FOLIC ACID 1 MG TABLET PO SCH (10:00)
[2017-09-28] MEDS: chlordiazePOXIDE HCl 25 MG CAP PO SCH ×2 (10:00→20:30)
[2017-09-28] MEDS: MULTIVITAMIN TAB PO SCH (10:00)
[2017-09-28] MEDS: THIAMINE HCL 100 MG TABLET PO SCH (10:00)
--- NOTE | 2017-09-28 13:32 | PN ---
Date of Progress Note: 09/28/2017 Subjective: The patient is seen and examined. Chart reviewed and case discussed with RN. The patie nt had no acute events overnight. Review of Systems: Negative except as above. Medications: List reviewed. Physical Examination: Vital Signs: Temperature 98.2, heart rate 78, blood pressure 121/83, respirations 14, O2 saturation 95% on room air. General: Awake, alert, oriented x3. No acute distress. CV: S1, S2. No murmurs. Regular rate and rhythm. Peripheral pulses present. Respiratory: Moving air well bilaterally. No wheezing or stridor. No use of accessory muscles. Gastrointestinal: Abdomen is soft, nontender, nondistended. Positive bowel sounds. Extremities: No clubbing, cyanosis, or edema. Neurologic: Nonfocal. Psych: Mood is okay. Affect is flat. Insight and judgment are poor. Laboratory Data: Sodium 139, potassium 3.8, chloride 107, CO2 25, BUN 6, creatinine 0.9, glucose 102 , calcium 9.5, phosphorus 5.3 and repeat is 4.5, magnesium 2.2. WBC 7.3, H and H 16.8 and 47.9, plat elets 261, neutrophils 56.4%. Assessment And Plan: A 37-year-old male with: 1.Suicide attempt with Seroquel and Depakote. Does have previous history of suicide attempt. Has b een recommended to go to inpatient psychiatric facility for further evaluation by [facility]. 2.Overdose with Seroquel and Depakote, intentional. Valproic acid level now normalized. Emergency fdc in place till tomorrow. Still awaiting placement to psychiatric facility. 3.Bipolar disorder. 4.Nicotine dependence with cigarette smoking. Continue nicotine patch. 5.Acute respiratory failure with hypoxia, resolved. 6.Alcohol dependence, counseled. 7.Gastrointestinal and deep venous thrombosis prophylaxis with PPI and Lovenox. 8.Hyperphosphatemia, corrected. Plan: Transfer to inpatient psychiatric facility once accepted. /JUSTYNA Voice ID: [id number] Report ID: [id number]
[2017-09-28] MEDS: NYSTATIN 500,000 UNIT/5 ML UDC PO SCH ×3 (14:32→20:30)
[2017-09-29] MEDS: PANTOPRAZOLE 40MG TABLET PO SCH (06:16)
[2017-09-29] MEDS: ENOXAPARIN 40 MG/0.4 ML SQ SCH (08:17)
[2017-09-29] MEDS: NICOTINE 21 MG/PAT TD SCH (08:18)
[2017-09-29] MEDS: FOLIC ACID 1 MG TABLET PO SCH (08:19)
[2017-09-29] MEDS: NYSTATIN 500,000 UNIT/5 ML UDC PO SCH (08:19)
[2017-09-29] MEDS: MULTIVITAMIN TAB PO SCH (08:20)
[2017-09-29] MEDS: THIAMINE HCL 100 MG TABLET PO SCH (08:20)
[2017-09-29] MEDS: chlordiazePOXIDE HCl 25 MG CAP PO SCH (08:20)
[2017-09-29 08:35] VITALS: O2SAT 97
[2017-09-29 12:26] VITALS: BP 127/79; TEMP 97.8
--- NOTE | 2017-09-30 04:58 | DS ---
Date of Discharge: 09/29/2017 Admitting Diagnoses: 1.Acute respiratory failure with hypoxia. 2.Intentional overdose. 3.Hypertension. 4.Hypothermia. 5.Tachycardia. Discharge Diagnoses: 1.Suicide attempt with Seroquel and Depakote. 2.Overdose, intentional. 3.Bipolar disorder. 4.Nicotine dependence with cigarette smoking. 5.Acute respiratory failure with hypoxia, resolved. 6.Alcohol dependence, counseled. 7.Hyperphosphatemia, corrected. 8.Hypothermia, resolved. Hospital Course: The patient is a 37-year-old male who was admitted to the hospital due to overdose after his left him. He took Depakote and Seroquel. He was found to be in respiratory distress, had to be intubated, and placed on mechanical ventilation. He was hypertensive, tachycardic, and hy pothermic. He had toxic levels of valproic acid as high as 123. IV fluids were initiated, supportiv e care. His level did improve. His hypothermia was corrected. The patient otherwise did well and d id have severe hallucinations due to the alcohol withdrawal, which required IV Ativan and Haldol. Th e patient after several days did stop hallucinating. He was placed on Librium taper. The patient wa s seen by [facility] and was recommended for inpatient psychiatry transfer, and referrals were sent; however, no beds were available. The patient had an emergency fdc in place which is now . The patient chose to leave against medical advice rather than staying and waiting for [facility] psychiatry bed. He states that he is not planning on overdosing. He wishes to go see his paro le officer and continue following up with [facility]. He was counseled extensively against le aving against medical advise, to stay for inpatient psychiatry bed, however, refused. He was counselling psychologist ed against smoking and alcohol. He voiced understanding. He does not have any specific plan. The patient then left against medical advice. SA/MODL Voice ID: [id number] Report ID: [id number]
== END 2017-09-29 11:50 | disposition left against medical advice (07) | DRG 917 ==
LOC: ER 03:31 → ERHOLD 04:57 → 3RD-ICU 06:36
PROVIDERS: ADMIT Hospitalist; ATTEND Family Medicine
PROC: 0BH17EZ Insertion of Endotracheal Airway into Trachea, Via Natural or Artificial Opening (ICD-10-PCS; principal; 2017-09-21)
PROC: 5A1945Z Respiratory Ventilation, 24-96 Consecutive Hours (ICD-10-PCS; 2017-09-21)
DX: T43.592A Poisoning by other antipsychotics and neuroleptics, intentional self-harm, initial encounter (principal); J96.01 Acute respiratory failure with hypoxia; F31.4 Bipolar disorder, current episode depressed, severe, without psychotic features; F10.231 Alcohol dependence with withdrawal delirium; T42.6X2A Poisoning by other antiepileptic and sedative-hypnotic drugs, intentional self-harm, initial encounter; F17.210 Nicotine dependence, cigarettes, uncomplicated; E83.39 Other disorders of phosphorus metabolism; T68.XXXA Hypothermia, initial encounter; E87.6 Hypokalemia; I95.9 Hypotension, unspecified; R00.0 Tachycardia, unspecified
CPT/HCPCS: 31500; 36415; 51702; 70360; 70450; 71045; 80048; 80053; 80076; 80164; 80307; 80320; 80329; 81003; 82140; 82805; 83735; 84100; 84132; 85025; 85610; 85730; 93005; 94002; 94003; 96365; 96366; 96375; 99291; J0330; J1630; J1650; J3010; J3411; J3475; J3486; J7030

== ENCOUNTER 2022-11-21 12:19 | Emergency (ER) | payer SELFPAY ==
--- OUTSIDE RECORDS SUMMARY | 2022-11-21 12:24 | XMS REPORT | Continuity of Care Document ---
:1980 Author Organization [facility] t Address [address] [facility] [address] [place] [address] Care Team Providers Name Role Phone PCP, PATIENT DOES NOT HAVE A Primary Care Physician UnavailUmesh Lee Attending Clinician Doctor Unassigned, [place] Attending Clinician Unavailable ROHIT WARE Attending Clinician Unavailable Rohit Sylvester Attending Clinician YOLANDE DESAI Attending Clinician Unavailable Yolande Desai MD Attending Clinician Kris Stapleton Attending Clinician ROHIT WARE Admitting Clinician Unavailable YOLANDE DESAI Admitting Clinician Unavailable Kris Stapleton Admitting Clinician Problems Condition Condition Condition Status Onset Resolution Last Treating Co mments Source Name Details Category Date Date Treatment Clinician Date LF LF Active Diagnosis Active 2015-09-04 Memoria 09-03 14:53:00 l 6 [facility] 00:00: Korey [address] CVA CVA Diagnosis Active 2016-03-06 Mem oria Active 09-03 08:47:00 l 09/04/2015 00:00: Korey burns [address] Caries Caries Disease Active Univers 2-10 ity of 00:00: [address] Infection Infection Disease Active Uni vers 2-10 ity of 00:00: [address] CEREBRAL CEREBRAL Diagnosis Active 2016-03-06 Memoria INFRC DUE INFRC DUE 08:47:00 l TO UNSP TO UNSP [place] OCCLS OR OCCLS OR STEN STEN Active [facility] Allergies, Adverse Reactions, Alerts Allergy Allergy Status Severity Reaction(s) Onset Inactive Treating Comm ents Source Name Type Date Date Clinician Slayden Propensi Active Swelling Unive rs ty to 2-10 ity of adverse 00:00: [place] reaction 00 Medical s Branch LITHIUM DRUG Active Swelling Univers INGREDI 2-10 ity of 00:00: [place] 00 Medical [place] No Known Drug Active [facility] lithium< lithium< Active Memori a sup>1</s sup>1</s l up> up> [place] Social History Social Habit Start Date Stop Date Quantity Comments Source Exposure to Not sure [facility] SARS-CoV-2 (event) [facility] Social History 2015-09-04 2015-09-04 [facility] christiantimo 22:08:33 22:08:33 Sex Ass[birth year] At [birth year] [facility] 00:00:00 00:00:00 [facility] Smoking Status Start Date Stop Date Source Unknown if ever smoked [facility] Medications Ordered Filled Start Stop Current Ordering Indication Dosage Frequency Signature Comments Components Source Medication Medication Date Date Medication? Clinician (SIG) Name Name FENTanyl PF 2020- No 50ug 50 mcg, Un bridget (SUBLIMAZE 09-10 Slow IV ity o f (PF)) 01:45: 00:52 Push, [place] injection 00 :00 ONCE, 1 Medical 50 mcg dose, Sat Branch 09/09/20 at 2044, Routine NaCl 0.9% 2020- No 1000mL at 999 Uni vers (NS) bolus 09-10- mL/hr, ity of infusion 01:45: 02:00 1,000 mL, [place] 1,000 mL 00 :00 IV Medical Piggyback, Branch ONCE, 1 dose, 09/09/20 at 2044, STAT dexamethaso 2020- No 10mg 10 mg, Uni vers ne 09-10 Oral, ity of (DECADRON 01:30: 00:26 ONCE, 1 [place] PHOSPHATE) 00 :00 dose, Sat Medi enedina injection 09/09/20 at Bran ch 10 mg 2029, Routine cyclobenzap 2020- No 10mg 10 mg, Uni vers rine 09-10 07-25 Oral, ity of (FLEXERIL) 01:15: 00:10 ONCE, 1 [place] tablet 10 00 :00 dose, Sat Medic al mg 09/09/20 at Branch 2015, Routine FENTanyl PF 2020- No 50ug 50 mcg, Un bridget (SUBLIMAZE 09-10-25 Intramuscu it y of (PF)) 01:15: 00:09 lar, ONCE, [place] injection 00 :00 1 dose, Medical 50 mcg Sat Branch 09/09/20 at 2015, Routine traMADoL 50 Yes [id number] 50mg Take 1 Univ ers mg tablet 7-24 tablet by ity o f 00:00: mouth [place] 00 every 6 Medical (six) Branch hours as needed for Pain (scale 7-10). Indication s: acute pain ibuprofen Yes [id number] 600mg Take 1 Univers 600 mg 7-24 tablet by ity of tablet 00:00: mouth [place] 00 every 6 Medical (six) Branch hours as needed for Pain (scale 4-6). predniSONE 2020- No [id number] 50mg Take 1 Univers 50 mg 7-24 07-30 tablet by ity of tablet 00:00: 04:59 mouth [place] 00 :00 daily for Medical 5 days. Branch ibuprofen 2019-02- No 800mg 800 mg, Uni vers (IBU) 2-20 12-20 Oral, ity of tablet 800 21:30: 20:27 ONCE, 1 [place] mg 00 :00 dose, [facility] 02/06/20 Branch at 1530, AGATA ketorolac 2019- No 30mg 30 mg, Unive rs (TORADOL) 5-30 05-30 Slow IV ity of injection 08:45: 07:44 Push, [place] 30 mg 00 :00 ONCE, 1 Medical dose, [facility] Branch 07/17/19 at 0345, AGATA
Fa culty member approving Restricted medication : YOLANDE DESAI NaCl 0.9% 2020- No 1000mL at 999 Uni vers (NS) bolus 5-30 05-30 mL/hr, ity of infusion 08:45: 08:37 1,000 mL, [place] 1,000 mL 00 :00 IV Medical Infusion, Branch ONCE, 1 dose, 07/17/19 at 0345, STAT iohexol 2019-0 2020- No 120mL 120 mL, Unive rs (OMNIPAQUE 5-30 05-30 Intravenou it y of 350 08:00: 07:30 s, ONCE, 1 [place] BULK-150 00 :00 dose, Sat Medica l mL) 07/17/19 at Branch injection 0300, 120 mL Routine contrast 2019-0 2020- No Intravenou Un bridget previously 5-30 05-30 s, ONCE, 1 it y of administere 07:45: 07:20 dose, Sat [place] d 0 mL 00 :00 07/17/19 at Medical 0245, Branch Routine ibuprofen 2019-0 Yes [id number] 800mg Take 1 Univers 800 mg 5-30 [id number] tablet by ity of tablet 00:00: mouth [place] 00 every 8 Medical (eight) Branch hours as needed for Pain (scale 4-6). ibuprofen 2019-0 Yes [id number] 800mg Take 1 Univers 800 mg 5-30 [id number] tablet by ity of tablet 00:00: mouth [place] 00 every 8 Medical (eight) Branch hours as needed for Pain (scale 4-6). ibuprofen 2019-0 Yes [id number] 800mg Take 1 Univers 800 mg 5-30 tablet by ity of tablet 00:00: mouth [place] 00 every 8 Medical (eight) Branch hours as needed for Pain (scale 4-6). ibuprofen 2020-0 Yes [id number] 800mg Take 1 Univers 800 mg 5-30 [id number] tablet by ity of tablet 00:00: mouth [place] 00 every 8 Medical (eight) Branch hours as needed for Pain (scale 4-6). ibuprofen 2020-0 Yes [id number] 800mg Take 1 Univers 800 mg 5-30 [id number] tablet by ity of tablet 00:00: mouth [place] 00 every 8 Medical (eight) Branch hours as needed for Pain (scale 4-6). methocarbam 2018-02 Yes [id number] 500mg Take 1 Univers ol 1-26 tablet by ity of (ROBAXIN) 00:00: mouth 4 [place] 500 mg 00 (four) Medical tablet times Branch daily. traMADol 2018-02 Yes [id number] 50mg Take 1 Uni vers (ULTRAM) 50 1-26 tablet by ity of mg tablet 00:00: mouth [place] 00 every 6 Medical (six) Branch hours as needed for Pain (scale 7-10). naproxen 2018-02 Yes [id number] 550mg Take 1 Un bridget sodium 550 1-26 tablet by ity of mg tablet 00:00: mouth 2 [place] 00 (two) Medical times Branch daily with meals. methocarbam 2018-02 Yes [id number] 500mg Take 1 Univers ol 1-26 tablet by ity of (ROBAXIN) 00:00: mouth 4 [place] 500 mg 00 (four) Medical tablet times Branch daily. traMADol 2018-02 Yes [id number] 50mg Take 1 Uni vers (ULTRAM) 50 1-26 tablet by ity of mg tablet 00:00: mouth [place] 00 every 6 Medical (six) Branch hours as needed for Pain (scale 7-10). naproxen 2018-02 Yes [id number] 550mg Take 1 Un bridget sodium 550 1-26 tablet by ity of mg tablet 00:00: mouth 2 [place] 00 (two) Medical times Branch daily with meals. methocarbam 2018-02 Yes [id number] 500mg Take 1 Univers ol 1-26 tablet by ity of (ROBAXIN) 00:00: mouth 4 [place] 500 mg 00 (four) Medical tablet times Branch daily. traMADol 2018-02 Yes [id number] 50mg Take 1 Uni vers (ULTRAM) 50 1-26 tablet by ity of mg tablet 00:00: mouth [place] 00 every 6 Medical (six) Branch hours as needed for Pain (scale 7-10). naproxen 2018-02 Yes [id number] 550mg Take 1 Un bridget sodium 550 1-26 tablet by ity of mg tablet 00:00: mouth 2 [place] 00 (two) Medical times Branch daily with meals. methocarbam 2018-02 Yes [id number] 500mg Take 1 Univers ol 1-26 tablet by ity of (ROBAXIN) 00:00: mouth 4 [place] 500 mg 00 (four) Medical tablet times Branch daily. traMADol 2018-02 Yes [id number] 50mg Take 1 Uni vers (ULTRAM) 50 1-26 tablet by ity of mg tablet 00:00: mouth [place] 00 every 6 Medical (six) Branch hours as needed for Pain (scale 7-10). naproxen 2018-02 Yes [id number] 550mg Take 1 Un bridget sodium 550 1-26 tablet by ity of mg tablet 00:00: mouth 2 00 (two) Medical times Branch daily with meals. methocarbam 2018-02 Yes [id number] 500mg Take 1 Univers ol 1-26 tablet by ity of (ROBAXIN) 00:00: mouth 4 [place] 500 mg 00 (four) Medical tablet times Branch daily. traMADol 2018-02 Yes [id number] 50mg Take 1 Uni vers (ULTRAM) 50 1-26 tablet by ity of mg tablet 00:00: mouth [place] 00 every 6 Medical (six) Branch hours as needed for Pain (scale 7-10). naproxen 2018-02 Yes [id number] 550mg Take 1 Un bridget sodium 550 1-26 tablet by ity of mg tablet 00:00: mouth 2 00 (two) Medical times Branch daily with meals. ibuprofen 2018-02 Yes [id number] 600mg Take 1 Univers 600 mg 1-20 tablet by ity of tablet 00:00: mouth [place] 00 every 6 Medical (six) Branch hours as needed for Pain (scale 4-6). ibuprofen 2018-02 Yes [id number] 600mg Take 1 Univers 600 mg 1-20 tablet by ity of tablet 00:00: mouth [place] 00 every 6 Medical (six) Branch hours as needed for Pain (scale 4-6). ibuprofen 2018-02 Yes [id number] 600mg Take 1 Univers 600 mg 1-20 tablet by ity of tablet 00:00: mouth [place] 00 every 6 Medical (six) Branch hours as needed for Pain (scale 4-6). ibuprofen 2018-02 Yes [id number] 600mg Take 1 Univers 600 mg 1-20 tablet by ity of tablet 00:00: mouth [place] 00 every 6 Medical (six) Branch hours as needed for Pain (scale 4-6). ibuprofen 2018-02 Yes [id number] 600mg Take 1 Univers 600 mg 1-20 tablet by ity of tablet 00:00: mouth [place] 00 every 6 Medical (six) Branch hours as needed for Pain (scale 4-6). famotidine Yes 20mg Take 1 Unive rs 20 mg 4-30 tablet by ity of tablet 00:00: mouth 2 00 (two) Medical times Branch daily. benzonatate 2017-0 Yes 100mg Take 1 Uni vers 100 mg 4-30 capsule by ity of capsule 00:00: mouth 3 (three) Medical times Branch daily as needed for Cough. famotidine 2018-0 Yes 20mg Take 1 Unive rs 20 mg 4-30 tablet by ity of tablet 00:00: mouth 2 (two) Medical times Branch daily. benzonatate 2018-0 Yes 100mg Take 1 Uni vers 100 mg 4-30 capsule by ity of capsule 00:00: mouth 3 (three) Medical times Branch daily as needed for Cough. famotidine 2018-0 Yes 20mg Take 1 Unive rs 20 mg 4-30 tablet by ity of tablet 00:00: mouth 2 (two) Medical times Branch daily. benzonatate 2018-0 Yes 100mg Take 1 Uni vers 100 mg 4-30 capsule by ity of capsule 00:00: mouth (three) Medical times Branch daily as needed for Cough. famotidine 2018-0 Yes 20mg Take 1 Unive rs 20 mg 4-30 tablet by ity of tablet 00:00: mouth (two) Medical times Branch daily. benzonatate 2018-0 Yes 100mg Take 1 Uni vers 100 mg 4-30 capsule by ity of capsule 00:00: mouth (three) Medical times Branch daily as needed for Cough. famotidine 2018-0 Yes 20mg Take 1 Unive rs 20 mg 4-30 tablet by ity of tablet 00:00: mouth (two) Medical times Branch daily. benzonatate 2018-0 Yes 100mg Take 1 Uni vers 100 mg 4-30 capsule by ity of capsule 00:00: mouth (three) Medical times Branch daily as needed for Cough. traMADOL 2015-02 Yes 50mg Take 1 Univers (ULTRAM) 50 2-19 tablet by ity of mg tablet 00:00: mouth [place] 00 every 6 Medical (six) Branch hours as needed for Pain (scale 4-6) for up to 20 doses. traMADOL 2015-02 Yes 50mg Take 1 Univers (ULTRAM) 50 2-19 tablet by ity of mg tablet 00:00: mouth [place] 00 every 6 Medical (six) Branch hours as needed for Pain (scale 4-6) for up to 20 doses. traMADOL 2015-02 Yes 50mg Take 1 Univers (ULTRAM) 50 2-19 tablet by ity of mg tablet 00:00: mouth [place] 00 every 6 Medical (six) Branch hours as needed for Pain (scale 4-6) for up to 20 doses. traMADOL 2015-02 Yes 50mg Take 1 Univers (ULTRAM) 50 2-19 tablet by ity of mg tablet 00:00: mouth [place] 00 every 6 Medical (six) Branch hours as needed for Pain (scale 4-6) for up to 20 doses. traMADOL 2015-02 Yes 50mg Take 1 Univers (ULTRAM) 50 2-19 tablet by ity of mg tablet 00:00: mouth [place] 00 every 6 Medical (six) Branch hours as needed for Pain (scale 4-6) for up to 20 doses. remove No Notes: Memoria patch 09-05 Remove old l 14:00: patch [place] 00 before applicatio n of new patch. WASTE: F/P - P Waste Black; E - P Waste Black acetaminoph Yes 99.5 F, 0 Memoria en 325 mg 09-05 Refill(s) l oral tablet 12:02: Kore[place] n 00 heparin No Notes: Memoria sodium, 09-04 porcine l porcine 22:05: heparin [place] 2500 UNT/ML 00 Injectable Solution Nicotine No Notes: Memoria 09-04 (Same as: l 14:00: Habitrol) "Remove old patch before applicatio n of new patch" WASTE: F/P - P Waste Black; E - P Waste Black pantoprazol No Notes: For Memoria e 09-04 IV push l 14:00: reconstitu te with 10 ml 0.9% sodium chloride and push over 2 minutes. (Same as: Protonix) Saline No Notes: Memoria Flush 0.9% 09-04 (Same as: l 02:00: BD [place] 00 Posiflush) Docusate No Notes: Memoria -19 (Same as: l 02:00: Colace) [place] 00 (Do Not Crush) atorvastati No Notes: Yury kurt n 09-04 Same as l 02:00: Lipitor [place] 00 Alteplase No Notes: Memori a 09-03 (Same as: l 18:38: Activase) [place] 00 MEDICATION WASTE Product Size: 100 mg Product Wasted: ___ mg Saline No Notes: Memoria Flush 0.9% 7-18 (Same as: l 18:30: BD [place] Posiflush) Acetaminoph No Notes: Do M emoria en 7-18 not exceed l 18:30: 4 gm/day. [place] 00 (Same as: Tylenol) Sodium No 1,000 mL, Memori a Chloride -18 Rate: 75 l 0.154 18:30: ml/hr, [place] MEQ/ML 00 Infuse Injectable over: 13.3 Solution hr, Route: IV, Dosing Weight 94.091 kg, Total Volume: 1,000, Start date: 09/04/15 13:30:00 CDT, Duration: 30 day, Stop date: 10/04/15 13:29:00 CDT Saline No Notes: Memoria Flush 0.9% 7-18 (Same as: l 17:32: BD [place] Posiflush) chlorhexidi Yes 15mL Swish and U nivers ne 2-10 spit out ity of (PERIDEX) 00:00: 15 mL 2 [place] 0.12 % 00 (two) Medical mouthwash times Branch daily. amoxicillin Yes 500mg Take 1 Tab Univers -pot 2-10 by mouth 3 ity of clavulanate 00:00: (three) [place] 500 mg 00 times Medical (AUGMENTIN) daily. Branch 500-125 mg tablet acetaminoph Yes 1{tbl} Take 1-2 Univers en-codeine 2-10 Tabs by ity of (TYLENOL 00:00: mouth [place] #3) 300-30 00 every 6 Medica l mg tablet (six) Branch hours as needed for Pain (scale 4-6) or Pain (scale 7-10). chlorhexidi Yes 15mL Swish and U nivers ne 2-10 spit out ity of (PERIDEX) 00:00: 15 mL 2 [place] 0.12 % 00 (two) Medical mouthwash times Branch daily. amoxicillin 0 Yes 500mg Take 1 Tab Univers -pot 2-10 by mouth 3 ity of clavulanate 00:00: (three) [place] 500 mg 00 times Medical (AUGMENTIN) daily. Branch 500-125 mg tablet acetaminoph 2016-0 Yes 1{tbl} Take 1-2 Univers en-codeine 2-10 Tabs by ity of (TYLENOL 00:00: mouth [place] #3) 300-30 00 every 6 Medica l mg tablet (six) Branch hours as needed for Pain (scale 4-6) or Pain (scale 7-10). chlorhexidi 2016-0 Yes 15mL Swish and U nivers ne 2-10 spit out ity of (PERIDEX) 00:00: 15 mL 2 [place] 0.12 % 00 (two) Medical mouthwash times Branch daily. amoxicillin 2016-0 Yes 500mg Take 1 Tab Univers -pot 2-10 by mouth 3 ity of clavulanate 00:00: (three) [place] 500 mg 00 times Medical (AUGMENTIN) daily. Branch 500-125 mg tablet acetaminoph 2016-0 Yes 1{tbl} Take 1-2 Univers en-codeine 2-10 Tabs by ity of (TYLENOL 00:00: mouth [place] #3) 300-30 00 every 6 Medica l mg tablet (six) Branch hours as needed for Pain (scale 4-6) or Pain (scale 7-10). chlorhexidi 2016-0 Yes 15mL Swish and U nivers ne 2-10 spit out ity of (PERIDEX) 00:00: 15 mL 2 [place] 0.12 % 00 (two) Medical mouthwash times Branch daily. amoxicillin 2016-0 Yes 500mg Take 1 Tab Univers -pot 2-10 by mouth 3 ity of clavulanate 00:00: (three) [place] 500 mg 00 times Medical (AUGMENTIN) daily. Branch 500-125 mg tablet acetaminoph 2016-0 Yes 1{tbl} Take 1-2 Univers en-codeine 2-10 Tabs by ity of (TYLENOL 00:00: mouth [place] #3) 300-30 00 every 6 Medica l mg tablet (six) Branch hours as needed for Pain (scale 4-6) or Pain (scale 7-10). chlorhexidi 2016-0 Yes 15mL Swish and U nivers ne 2-10 spit out ity of (PERIDEX) 00:00: 15 mL 2 [place] 0.12 % 00 (two) Medical mouthwash times Branch daily. amoxicillin 2015-0 Yes 500mg Take 1 Tab Univers -pot 2-10 by mouth 3 ity of clavulanate 00:00: (three) [place] 500 mg 00 times Medical (AUGMENTIN) daily. Branch 500-125 mg tablet acetaminoph 2015-0 Yes 1{tbl} Take 1-2 Univers en-codeine 2-10 Tabs by ity of (TYLENOL 00:00: mouth [place] #3) 300-30 00 every 6 Medica l mg tablet (six) Branch hours as needed for Pain (scale 4-6) or Pain (scale 7-10). Vital Signs Vital Name Observation Time Observation Value Comments Source Systolic blood 2020-09-10 02:00:00 139 mm[Hg] Univer sity [facility] Diastolic blood 2020-09-10 02:00:00 88 [facility]Hg[facility] 2020-09-10 02:00:00 85 /min [facility] Body temperature 2020-09-10 02:00:00 37.22 Martina [facility] Respiratory rate 2020-09-10 02:00:00 26 /min [facility] Oxygen saturation in 2020-09-10 02:00:00 96 /min [place] of Arterial blood by [facility] Pulse oximetry [place] Body height 2020-09-09 23:40:00 182.9 cm [facility] Body weight 2020-09-09 23:40:00 99.791 kg [facility] BMI 2020-09-09 23:40:00 29.84 kg/m2 [facility] Systolic blood 2020-02-06 21:00:00 144 mm[Hg[facility] Diastolic blood 2020-02-06 21:00:00 84 mm[Hg] [facility] Heart rate 2020-02-06 21:00:00 97 /min [facility] Respiratory rate 2020-02-06 21:00:00 17 /min [facility] O[facility] saturation in 2020-02-06 21:00:00 95 /min University of Arterial blood by [facility] Pulse oximetry Branch Body temperature 2020-02-06 20:11:00 36.72 Martina Univ ersity [facility] Body height 2020-02-06 20:11:00 182.9 cm Universi ty [facility] Body weight 2020-02-06 20:11:00 78.019 kg Universi [facility] BMI 2020-02-06 20:11:00 23.33 kg/m2 Universi ty [facility] Systolic blood 2019-07-17 08:35:00 141 mm[Hg] Univer sity of pressure [facility] Diastolic blood 2019-07-17 08:35:00 84 mm[Hg] Unive rsity of pressure [facility] Heart rate 2019-07-17 08:35:00 82 /min Universi ty [facility] Body temperature 2019-07-17 08:35:00 36.06 Martina oral [facility] Respiratory rate 2019-07-17 08:35:00 18 /min [facility] Oxygen saturation in 2019-07-17 08:35:00 97 /min [facility] Arterial blood by [facility] Pulse oximetry Branch Body weight 2019-07-17 06:59:15 90.719 kg Universi ty [facility] BMI 2019-07-17 06:59:15 27.12 kg/m2 Universi ty [facility] Body height 2019-07-17 06:48:00 182.9 cm [facility] Heart Rate 2015-09-06 12:10:00 [facility] [place] Respitory Rate 2015-09-06 12:10:00 Memori al [place] Temperature Oral (F) 2015-09-06 12:10:00 96.8 F [facility] [place] Systolic (mm Hg) 2015-09-06 12:10:00 Yury rial [place] Diastolic (mm Hg) 2015-09-06 12:10:00 Mem orial [place] Heart Rate 2015-09-06 08:14:00 Memorial [place] Temperature Oral (F) 2015-09-06 08:14:00 98.3 F [facility] [place] Respitory Rate 2015-09-06 08:14:00 Memori al [place] Systolic (mm Hg) 2015-09-06 08:14:00 Yury rial [place] Diastolic (mm Hg) 2015-09-06 08:14:00 Mem orial [place] Systolic (mm Hg) 2015-09-06 04:17:00 Yury Stoneann Diastolic (mm Hg) 2015-09-06 04:17:00 Jaclyn orial [place] Respitory Rate 2015-09-06 04:17:00 Gee Sandersann Heart Rate 2015-09-06 04:17:00 [facility] [place] Temperature Oral (F) 2015-09-06 04:17:00 98.8 F [facility] [place] BMI Calculated 2015-09-04 22:00:00 Gee al [place] Weight 2015-09-04 22:00:00 [facility] [place] Height 2015-09-04 22:00:00 182.88 cm [facility] [place] Weight 2015-09-04 17:37:00 [facility] [place] BMI Calculated 2015-09-04 17:37:00 Gee rosario [place] Height 2015-09-04 17:37:00 [facility]96 [facility] Procedures Procedure Date / Time Performing Clinician Source Performed COMP. METABOLIC PANEL 2020-09-10 00:50:00 [id number] CBC WITH DIFF 2020-09-10 00:50:00 Umesh Johnson [facility] CT LUMBAR SPINE WO 2020-09-10 00:47:15 Umesh Johnson [facility] OF PRIVACY 2020-09-09 23:30:50 Doctor Unassigned, No Univ [facility] Medical Branch CONSENT/REFUSAL FOR 2020-09-09 23:30:36 Doctor Unassigned, No Un iversity [facility] DIAGNOSIS AND TREATMENT Name [facility] Branch XR SHOULDER 2+ VW RIGHT 2020-02-06 20:36:31 Rohit Ware [facility] NOTICE OF PRIVACY 2020-02-06 20:15:50 Doctor [facility]igned, [facility] CONSENT/REFUSAL FOR 2020-02-06 20:07:02 Doctor Unassigned, No Un iversity [facility] DIAGNOSIS AND TREATMENT Name [facility] Branch CT TRAUMA THORAX W 2019-07-17 07:46:32 Yolande Desai [facility] CONTRAST [facility] Branch CT TRAUMA ABDOMEN 2019-07-17 07:46:32 Yolande Desai [facility] PELVIS W CONTRAST Medical Branch CT TRAUMA THORACIC 2019-07-17 07:41:26 Yolande Desai [facility] SPINE WO CONTRAST Medical [place] CT TRAUMA LUMBAR SPINE 2019-07-17 07:39:34 Yolande Desai [facility] WO CONTRAST Medical Branch CT 2019-07-17 07:38:00 Yolande Desai [facility] MAXILLOFACIAL/MANDIBLE Medical [place] WO CONTRAST URINALYSIS 2019-07-17 07:36:00 Yolande Desai [facility] [place] CT TRAUMA HEAD WO 2019-07-17 07:20:00 Yolande Desai [facility] CONTRAST [facility] Branch CT TRAUMA CERVICAL 2019-07-17 07:20:00 Yolande Desai [facility] SPINE WO CONTRAST Medical Branch LIPASE 2019-07-17 06:50:00 Yolande Desai [facility] [place] COMP. METABOLIC PANEL 2019-07-17 06:50:00 Yolande Desai [facility] ([id number]) [facility] CBC WITH DIFFERENTIAL 2019-07-17 06:50:00 Yolande Desai [facility] Total knee replacement [facility] Encounters Start End Encounter Admission Attending Care Care Encounter Source Date/Time Date/Time Type Type Clinicians Facility Department ID 2020-09-09 2020-09-09 Emergency Ibikunle, [facility] [id number] Univers 18:36:00 21:12:00 Umesh Shabazz [id number] ity [facility] [id number] [facility] [id number] [facility] 084 Branch 2020-09-09 2020-09-09 Emergency X [place] ERT [id number] Univers 18:31:00 18:31:00 ity of [facility] 2020-09-09 2020-09-09 Orders Doctor ARMSTRONG [id number] Univers 00:00:00 00:00:00 Only Unassigned, AYANA [id number] ity of [place] [facility] [id number] [place] as [id number] [place] [address] Branch 2020-02-06 2020-02-06 Emergency [facility] E[facility] [id number] Univers 14:15:00 15:19:00 ROHIT cummins [facility] 2020-02-06 2020-02-06 [facility] [id number] Univers 14:15:00 15:19:00 Rohit Shabazz [id number] i ty of [place] [id number] [facility] [id number] [place] [address] Branch 2020-02-06 2020-02-06 Orders Doctor PATTI [id number] Univers 00:00:00 00:00:00 Only Unassigned, AYANA [id number] [facility] [id number] [place] as [phone] [address] 2019-08-11 2019-08-11 Emergency [facility] KRISTINE [id number] 14:23:00 14:23:00 [facility] 2019-07-17 2019-07-17 Emergency [facility] CENTER ERT [id number] Univers 01:38:11 03:46:00 YOLANDE cummins [facility] 2019-07-17 2019-07-17 Emergency Formerly [facility] [id number] Univers 01:38:11 03:46:00 Yolande Shabazz [id number] ity of [place] [id number] [facility] [id number] [address] 2015-09-04 2015-09-06 Inpatient [facility] [id number] Memoria 17:37:00 16:06:[address] [place] [address] 2015-09-04 2015-09-06 [facility] [id number] 12:37:00 11:06:00 Kris Golden Results Test Test Test Results Result Source Description Time Comments Comments CT LUMBAR SPINE 1. No acute fracture or [facility] CONTRAST 25 malalignment of the [facility] Medical 01:36:29 lumbar spine.2. Branch Multilevel degenerative disc disease most prominent at L2-L3 where thecentral canal measures between 7 and 8 mm. At L3-L4 and L4-L5 the sagittalimages between 8 and 9 mm. There is no severe foraminal narrowing.3. Hepatic steatosis. RL: 518 AF: [id number] End of report ORDERING PHYSICIAN: UMESH JOHNSON CLINICAL HISTORY: Spinal stenosis, lumbosacral; Compression fracture,L-spine TECHNIQUE: CT lumbar spine was performed without administration ofintravenous contrast. CT scan was done according to ALARA (As Low asReasonably Achievable). TECHNICAL QUALITY: Adequate COMPARISON: 07/17/2019 FINDINGS: There is normal lordosis of the lumbar spine. The vertebralbodies are normal in height and alignment. There are 5 nonrib-bearingvertebrae. There is endplate changes at L5-S1. There is no compressionfracture. There is no transverse process fracture. There is no spinousprocess fracture. There is no prevertebral soft tissue swelling. There is intervertebral discspace narrowing at L5-S1. There is multilevel intervertebral disc spacenarrowing secondary to disc osteophyte complex. At L2-L3, the central canalmeasures between 7 and 8 mm. At L3-L4, the central canal measures between 8and 9 mm. At L4-L5 the central canal measures 9 mm. There is no severeforaminal narrowing. The abdominal aorta is normal caliber. There is diffuse hypodensity of theliver. [facility], Radiant Results Inft User - 09/09/2020 8:37 PM CDT ORDERING PHYSICIAN: UMESH DARNELLLINICAL HISTORY: Spinal stenosis, lumbosacral; Compression fracture,L-spine TECHNIQUE: CT lumbar spine was performed without administration ofintravenous contrast. CT scan was done according to ALARA (As Low asReasonably Achievable).TECHNICAL QUALITY: AdequateCOMPARISON: 07/17/2019FINDINGS: There is normal lordosis of the lumbar spine. The vertebralbodies are normal in height and alignment. There are 5 nonrib-bearingvertebrae. There is endplate changes at L5-S1. There is no compressionfracture. There is no transverse process fracture. There is no spinousprocess fracture.There is no prevertebral soft tissue swelling. There is intervertebral discspace narrowing at L5-S1. There is multilevel intervertebral disc spacenarrowing secondary to disc osteophyte complex. At L2-L3, the central canalmeasures between 7 and 8 mm. At L3-L4, the central canal measures between 8and 9 mm. At L4-L5 the central canal measures 9 mm. There is no severeforaminal narrowing.The abdominal aorta is normal caliber. There is diffuse hypodensity of theliver.IMPRESSION1. No acute fracture or malalignment of the lumbar spine.2. Multilevel degenerative disc disease most prominent at L2-L3 where thecentral canal measures between 7 and 8 mm. At L3-L4 and L4-L5 the sagittalimages between 8 and 9 mm. There is no severe foraminal narrowing.3. Hepatic steatosis.RL: 518AFC: 97493Hik of report . METABOLIC PANEL ([id number]) 2020-09-10 01:23:11 Test Item Value Reference Range Interpretation Comme nts NA (test code = 2779070705) 138 mmol/L 135-145 K (test code = 5205346374) 4.4 mmol/L 3.5-5.0 CL (test code = 4368602783) 105 mmol/L 98-108 CO2 TOTAL (test code = 8491801376) 26 mmol/L 23-31 AGAP (test code = 9736571989) 2-16 BUN (test code = 5197741572) 12 mg/dL 7-23 GLUCOSE (test code = 0513876923) 78 mg/dL 70-110 CREATININE (test code = 0.96 mg/dL 0.60-1.25 2288614380) TOTAL BILI (test code = 0.7 mg/dL 0.1-1.1 0173037807) CALCIUM (test code = 2505856507) 9.6 mg/dL 8.6-10.6 T PROTEIN (test code = 0195737543) 8.0 g/dL 6.3-8.2 ALBUMIN (test code = 8181973595) 4.6 g/dL 3.5-5.0 ALK PHOS (test code = 3740329626) 82 U/L 34-122 ALTv (test code = 1742-6) 94 U/L 5-50 H AST(SGOT) (test code = 5265486028) 71 U/L 13-40 H eGFR (test code = 6204814604) mL/min/1.73m2 TOM (test code = TOM) Association of Glomerular Filtration Rate (GFR) and Staging of Kidney Disease* + +-------- + ------+| GFR (mL/min/1.73 m2) ?| With Kidney Damage ?| ?Without Kidney Damage+ +-- + +| ?>90 ?| ?Stage one ?| ? Normal ?+ +------- + -------+| ?60-89 ?| ?Stage two ?| ? Decreased GFR ? + +-------- + ------+| ?30-59 ?| ?Stage three ?| ? Stage three ? + +-------- + ------+| ?15-29 ?| ?Stage four ? | ? Stage four ?+ +------- + -------+| ?<15 (or dialysis) ? ?| ?Stage five ? | ? Stage five ?+ +------- + -------+ *Each stage assumes the associated GFR level has been in effect for at least three months. ?Stages 1 to 5, with or without kidney disease, indicate chronic kidney disease. Notes: Determination of stages one and two (with eGFR >59mL/min/1.73 m2) requires estimation of kidney damage for at least three months as defined by structural or functional abnormalities of the kidney, manifested by either:Pathological abnormalities or Markers of kidney damage (including abnormalities in the composition of the blood or urine or abnormalities in imaging tests). Lab Interpretation (test code = Abnormal 96277-0) [facility] WITH [id number] 01:05:08 Test Item Value Reference Range Interpretation Comments WBC (test code = See_Comment [Automated 2576-2) message] The sy stem which generated this result transmitted reference range : 4.20 - 10.70 10*3/?L. The reference range was not used to interpret this result as normal/abnormal . RBC (test code = See_Comment [Automated 789-8) message] The sy stem which generated this result transmitted reference range : 4.26 - 5.52 10*6/?L. The reference range was not used to interpret this result as normal/abnormal . HGB (test code = 17.1 g/dL 12.2-16.4 H 718-7) HCT (test code = 49.2 % 38.4-49.3 4544-3) MCV (test code = 90.4 fL 81.7-95.6 787-2) MCH (test code = 31.4 pg 26.1-32.7 785-6) MCHC (test code = 34.8 g/dL 31.2-35.0 786-4) RDW-SD (test code = 41.5 fL 38.5-51.6 30555-6) RDW-CV (test code = 12.7 % 12.1-15.4 788-0) PLT (test code = See_Comment [Automated 777-3) message] The sy stem which generated this result transmitted reference range : 150 - 328 10*3/ ?L. The reference r robin was not used to interpret this result as normal/abnormal . MPV (test code = 10.8 fL 9.8-13.0 60297-5) NRBC/100 WBC (test See_Comment [Automat ed code = 2328759175) message] The system which generated this result transmitted reference range : 0.0 - 10.0 /100 WBCs. The refer ence range was not u sed to interpret th is result as normal/abnormal . NRBC x10^3 (test code <0.01 See_Comment [Auto mated = 7515888038) message] The s ystem which generated this result transmitted reference range : 10*3/?L. The reference range was not used to interpret this result as normal/abnormal . GRAN MAT (NEUT) % 59.5 % (test code = 770-8) IMM GRAN % (test code 0.90 % = 9257679694) LYMPH % (test code = 19.8 % 736-9) MONO % (test code = 13.3 % 5905-5) EOS % (test code = 5.7 % 713-8) BASO % (test code = 0.8 % 706-2) GRAN MAT x10^3(ANC) 5.04 10*3/uL 1.99-6.95 (test code = 1685412400) IMM GRAN x10^3 (test 0.08 10*3/uL 0.00-0.06 H code = 5714480774) LYMPH x10^3 (test code 1.68 10*3/uL 1.09-3.23 = 731-0) MONO x10^3 (test code 1.13 10*3/uL 0.36-1.02 H = 742-7) EOS x10^3 (test code = 0.48 10*3/uL 0.06-0.53 711-2) BASO x10^3 (test code 0.07 10*3/uL 0.01-0.09 = 704-7) Lab Interpretation Abnormal (test code = 14812-3) [facility] [id number] 08:37:48 C Urine Added by [id number]_UA_CUL_INDNo growth at 24 hours. No growth at 48 hours.Valproic Acid [id number] 17:13:06 Test Item Value Reference Range Interpretation Comments Valproic Acid <3.0 mcg/mL N A therapeutic range of Level (test code = 50-100 ug /ml may Valproic Acid indicate effec tive Level) concentrations for many patients; howev er some individuals are best treated at concentrations outside this range. The physician must determine the appropriate therapeutic ran ge for each patient. Urinalysis [id number] 16:46:19 Test Item Value Reference Range Interpretation Comments UA WBC (test code = UA WBC) 6-10 0-5 A UA RBC (test code = UA RBC) 0-5 0-5 UA Amorph [place] (test code = UA Moderate A Amorph [place]) Urinalysis with Culture, if [id number] 16:40:07 Test Item Value Reference Range Interpretation Comments UA Color (test code = UA Color) YELLO Yellow UA Appear (test code = UA Appear) CLDY Clear A UA pH (test code = UA pH) 5.5 N UA Spec Grav (test code = UA Spec 1.030 1.001-1.035 Grav) UA Glucose (test code = UA NEG Negative Glucose) UA Bili (test code = UA Bili) Small mg/dL N UA Ketones (test code = UA Trace mg/dL N Ketones) UA Blood (test code = UA Blood) NEG Negative UA Protein (test code = UA 30 mg/dL N Protein) UA Urobilinogen (test code = UA .2 mg/dL >0.2 Urobilinogen) UA Nitrite (test code = UA NEG Negative Nitrite) UA Leuk Est (test code = UA Leuk SML Negative A Est) UA Micro Ind? (test code = UA Indicated Not Indicated A Micro Ind?) Urine DOA [id number] 16:35:08 Test Item Value Reference Range Interpretation Comments Amphetamine Screen Ur Negative Negative The sp ecimen is (test code = presumptive pos itive Amphetamine Screen Ur) if th e analyte concentration i s equal to or greater t wolf 1000 ng/ml.If confirmation of positive result is desired, please order Amphetamine Confirmation, U rine within 7 days. Barbiturate Screen Ur Negative Negative The sp ecimen is (test code = presumptive pos itive Barbiturate Screen Ur) if th e analyte concentration i s equal to or greater t wolf 200 ng/ml.If confir mation of positive res ult is desired, please order Barbiturate Confirmation, U rine within 7 days. Benzodiazepines Ur Negative Negative The speci men is (test code = presumptive pos itive Benzodiazepines Ur) if the a nalyte concentration i s equal to or greater t wolf 200 ng/ml.If confir mation of positive res ult is desired, please order Benzodiazephine Confirmation, U rine within 7 days. Cocaine Screen Ur (test Negative Negative The specimen is code = Cocaine Screen presum ptive positive Ur) if the analyte concentration i s equal to or greater t wolf 300 ng/ml.If confir mation of positive res ult is desired, please order Cocaine Metabol ite Confirmation, U rine within 7 days. Opiate Screen Ur (test Negative Negative The s pecimen is code = Opiate Screen presump tive positive Ur) if the analyte concentration i s equal to or greater t wolf 2000 ng/ml.If confirmation of positive result is desired, please order Opiate Confirma tion, Urine within 7 days. U PCP Scrn (test code = Negative Negative The specimen is U PCP Scrn) presumptive pos itive if the analyte concentration i s equal to or greater t wolf 25 ng/ml.If confir mation of positive res ult is desired, please order Phencyclidine Confirmation, U rine within 7 days. Cannabinoid Screen Ur Negative Negative The sp ecimen is (test code = presumptive pos itive Cannabinoid Screen Ur) if th e analyte concentration i s equal to or greater t wolf 50 ng/ml.If confir mation of positive res ult is desired, please order Cannabinoid (TH C) Confirmation, U rine within 7 days. U Methadone Scr (test Negative Negative The sp ecimen is code = U Methadone Scr) pres umptive positive if the analyte concentration i s equal to or greater t wolf 300 ng/ml.If confir mation of positive res ult is desired, please order Methadone Confirmation, U rine within 7 days. U Propoxyphene (test Negative Negative The spe cimen is code = U Propoxyphene) presu mptive positive if the analyte concentration i s equal to or greater t wolf 300 ng/ml.If confir mation of positive res ult is desired, please order Propoxyphene Confirmation wi thin 7 days. Alcohol [id number] 16:19:08 Test Item Value Reference Range Interpretation Comments Ethanol Level 4.2 mg/dL N The pharmacolo gical (test code = response to blo od alcohol Ethanol Level) levels may va ry from individual to i ndividual. The fatal jasiel ntration has been report ed to be >400 mg/dl. Comprehensive Metabolic [id number] 16:18:54 Test Item Value Reference Range Interpretation Comments Sodium Level (test code = Sodium 142.0 mmol/L 136.0-145.0 Level) Potassium Level (test code = 4.20 mmol/L 3.50-5.10 Potassium Level) Chloride Level (test code = 108.0 mmol/L 98.0-107.0 H Chloride Level) CO2 (test code = CO2) 25 mmol/L 20-31 Anion Gap (test code = Anion 8.7 mmol/L 5.0-15.0 Gap) BUN (test code = BUN) 14 mg/dL 9-23 Creatinine Level (test code = 0.98 mg/dL 0.70-1.30 Creatinine Level) BUN/Creat Ratio (test code = 14.3 ratio 10.0-20.0 BUN/Creat Ratio) Glucose Level (test code = 89 mg/dL 74-106 Glucose Level) Calcium Level (test code = 9.7 mg/dL 8.3-10.6 Calcium Level) Alk Phos (test code = Alk Phos) 82 U/L 46-116 Bilirubin Total (test code = 0.5 mg/dL 0.3-1.2 Bilirubin Total) Albumin Level (test code = 4.9 g/dL 3.2-4.8 H Albumin Level) Protein Total (test code = 7.3 g/dL 5.7-8.2 Protein Total) ALT (test code = ALT) 31 U/L 10-49 AST (test code = AST) 29 U/L <=34 Globulin (test code = Globulin) 2.4 g/dL 2.3-3.5 A/G Ratio (test code = A/G 2.0 g/dL 0.8-2.0 Ratio) Comprehensive Metabolic [id number] 16:18:54 Test Item Value Reference Range Interpretation Comments Sodium Level (test 142.0 mmol/L 136.0-145.0 code = Sodium Level) Potassium Level 4.20 mmol/L 3.50-5.10 (test code = Potassium Level) Chloride Level (test 108.0 mmol/L 98.0-107.0 H code = Chloride Level) CO2 (test code = 25 mmol/L 20-31 CO2) Anion Gap (test code 8.7 mmol/L 5.0-15.0 = Anion Gap) BUN (test code = 14 mg/dL 9-23 BUN) Creatinine Level 0.98 mg/dL 0.70-1.30 (test code = Creatinine Level) BUN/Creat Ratio 14.3 ratio 10.0-20.0 (test code = BUN/Creat Ratio) Glucose Level (test 89 mg/dL 74-106 code = Glucose Level) Calcium Level (test 9.7 mg/dL 8.3-10.6 code = Calcium Level) Alk Phos (test code 82 U/L 46-116 = Alk Phos) Bilirubin Total 0.5 mg/dL 0.3-1.2 (test code = Bilirubin Total) Albumin Level (test 4.9 g/dL 3.2-4.8 H code = Albumin Level) Protein Total (test 7.3 g/dL 5.7-8.2 code = Protein Total) ALT (test code = 31 U/L 10-49 ALT) AST (test code = 29 U/L <=34 AST) Globulin (test code 2.4 g/dL 2.3-3.5 = Globulin) A/G Ratio (test code 2.0 g/dL 0.8-2.0 = A/G Ratio) eGFR AA (test code = >60 >=60 eGFR (e stimated eGFR AA) mL/min/1.73 m2 Glomerular Filtration Rate ) is an estimated va lue, calculated from the patient's serum creatinine usin g the MDRD equation. It is NOT the patient 's actual GFR. The eGFR provides a more clinically usef ul measure of kidn ey disease than se rum creatinine alone.This calculation avtar es sex and race in to account, if the information is provided. If th e race is not provided, and t he patient is -[place] n, multiply by 1.2 12. If sex is not provided, and t he patient is fema le, multiply by 0.7 42. Results for pat ients <18 years of ag e have not been validated by th e MDRD study and should be interpreted wit h caution. eGFR R esult Interpretation: eGFR > or = 60 is in the Normal RangeeGF R < 60 may mean kid lorrie diseaseeGFR < 1 5 may mean kidney failure Rang es recommended by the National Kidney Foundation, http://nkdep.ni h.gov Comprehensive Metabolic [id number] 16:18:54 Test Item Value Reference Range Interpretation Comments Sodium Level (test 142.0 mmol/L 136.0-145.0 code = Sodium Level) Potassium Level 4.20 mmol/L 3.50-5.10 (test code = Potassium Level) Chloride Level (test 108.0 mmol/L 98.0-107.0 H code = Chloride Level) CO2 (test code = 25 mmol/L 20-31 CO2) Anion Gap (test code 8.7 mmol/L 5.0-15.0 = Anion Gap) BUN (test code = 14 mg/dL 9-23 BUN) Creatinine Level 0.98 mg/dL 0.70-1.30 (test code = Creatinine Level) BUN/Creat Ratio 14.3 ratio 10.0-20.0 (test code = BUN/Creat Ratio) Glucose Level (test 89 mg/dL 74-106 code = Glucose Level) Calcium Level (test 9.7 mg/dL 8.3-10.6 code = Calcium Level) Alk Phos (test code 82 U/L 46-116 = Alk Phos) Bilirubin Total 0.5 mg/dL 0.3-1.2 (test code = Bilirubin Total) Albumin Level (test 4.9 g/dL 3.2-4.8 H code = Albumin Level) Protein Total (test 7.3 g/dL 5.7-8.2 code = Protein Total) ALT (test code = 31 U/L 10-49 ALT) AST (test code = 29 U/L <=34 AST) Globulin (test code 2.4 g/dL 2.3-3.5 = Globulin) A/G Ratio (test code 2.0 g/dL 0.8-2.0 = A/G Ratio) eGFR AA (test code = >60 >=60 eGFR (e stimated eGFR AA) mL/min/1.73 m2 Glomerular Filtration Rate ) is an estimated va lue, calculated from the patient's serum creatinine usin g the MDRD equation. It is NOT the patient 's actual GFR. The eGFR provides a more clinically usef ul measure of kidn ey disease than se rum creatinine alone.This calculation avtar es sex and race in to account, if the information is provided. If th e race is not provided, and t he patient is -[place] n, multiply by 1.2 12. If sex is not provided, and t he patient is fema le, multiply by 0.7 42. Results for pat ients <18 years of ag e have not been validated by th e MDRD study and should be interpreted wit h caution. eGFR R esult Interpretation: eGFR > or = 60 is in the Normal RangeeGF R < 60 may mean kid lorrie diseaseeGFR < 1 5 may mean kidney failure Rang es recommended by the National Kidney Foundation, http://nkdep.ni h.gov eGFR Non-AA (test >60.00 >=60.00 eGFR (amy mated code = eGFR Non-AA) mL/min/1.73 m2 Glomer ular Filtration Rate ) is an estimated va lue, calculated from the patient's serum creatinine usin g the MDRD equation. It is NOT the patient 's actual GFR. The eGFR provides a more clinically usef ul measure of kidn ey disease than se rum creatinine alone.This calculation avtar es sex and race in to account, if the information is provided. If th e race is not provided, and t he patient is -[place] n, multiply by 1.2 12. If sex is not provided, and t he patient is fema le, multiply by 0.7 42. Results for pat ients <18 years of ag e have not been validated by th e MDRD study and should be interpreted wit h caution. eGFR R esult Interpretation: eGFR > or = 60 is in the Normal RangeeGF R < 60 may mean kid lorrie diseaseeGFR < 1 5 may mean kidney failure Rang es recommended by the National Kidney Foundation, http://nkdep.ni h.gov IG [id number] 15:52:28 Test Item Value Reference Range Interpretation Comments IG (test code = IG) 0.5 % 0.0-5.0 IG Abs (test code = IG Abs) 0 x10 N Complete Blood Count with [id number] 15:52:27 Test Item Value Reference Range Interpretation Comments WBC (test code = WBC) 9.6 x10 4.4-10.5 RBC (test code = RBC) 5.88 x10 4.10-5.70 H Hgb (test code = Hgb) 17.9 g/dL 13.4-17.4 H MCV (test code = MCV) 93.70 fL 80.00-100.00 Hct (test code = Hct) 55.1 % 38.7-52.0 H MCHC (test code = 32.50 g/dL 32.00-37.50 MCHC) RDW CV (test code = 13.2 % 11.5-14.5 RDW CV) MCH (test code = MCH) 30.4 pg 27.0-32.5 Platelets (test code = 193.0 x10 140.0-440.0 Platelets) MPV (test code = MPV) 11.2 fL N Slide Review (test Auto Auto Result cr eated by code = Slide Review) GL_SJM_ SLIDE_REV_AUTO nRBC (test code = 0 N nRBC) NRBC Abs (test code = 0.00 x10 N NRBC Abs) IPF (test code = IPF) 0 % N Automated [id number] 15:52:27 Test Item Value Reference Range Interpretation Comments Neutro Auto (test code = Neutro 73.7 % 36.0-70.0 H Auto) Lymph Auto (test code = Lymph Auto) 14.9 % 12.0-44.0 Clark Auto (test code = Clark Auto) 10.3 % 0.0-11.0 Eos, Auto (test code = Eos, Auto) 0.3 % 0.0-7.0 Basophil Auto (test code = Basophil 0.3 % 0.0-2.0 Auto) Neutro Absolute (test code = Neutro 7.1 x10 1.6-7.4 Absolute) Lymph Absolute (test code = Lymph 1.43 x10 .50-4.60 Absolute) Clark Absolute (test code = Clark .99 x10 .00-1.20 Absolute) Eos Absolute (test code = Eos 0.03 x10 0.00-0.74 Absolute) Baso Absolute (test code = Baso 0.03 x10 0.00-0.21 Absolute) [id number] 08:07:00 Test Item Value Reference Range Interpretation Comments APPEARANCE (test code = Clear Clear 6893605048) COLOR (test code = Straw Yellow A 0796766317) PH (test code = 4.8-8.0 0957862664) SP GRAVITY (test code = 1.003-1.030 4344738516) GLU U QUAL (test code = Normal Normal 8699271356) BLOOD (test code = Negative Negative 9159660016) KETONES (test code = Negative Negative 4604153236) PROTEIN (test code = Negative Negative 2887-8) UROBILIN (test code = Normal Normal 3455714455) BILIRUBIN (test code = Negative Negative 8770326844) NITRITE (test code = Negative Negative 3050286762) LEUK AZUL (test code = Negative Negative 8134563017) RBC/HPF (test code = See_Comment [Autom ated message] 0707810995) The system [employer] generated this result transmitted ref erence range: 0 - 3 HP F. The reference range was not used to int erpret this result as normal/abnormal . WBC/HPF (test code = <1 See_Comment [Autom ated message] 7210119961) The system [employer] generated this result transmitted ref erence range: 0 - 5 HP F. The reference range was not used to int erpret this result as normal/abnormal . BACTERIA (test code = Negative Negative 5268047774) Lab Interpretation (test Abnormal code = 06950-5) [facility]. METABOLIC PANEL (62461)2019-07-17 07:07:00 Test Item Value Reference Range Interpretation Comments NA (test code = 139 mmol/L 135-145 9243549464) K (test code = 3.6 mmol/L 3.5-5 3833142961) CL (test code = 100 mmol/L 98-108 3741842541) CO2 TOTAL (test code = 23 mmol/L 23-31 4781603006) AGAP (test code = 2-16 8925747038) BUN (test code = 5 mg/dL 7-23 L 2021147051) GLUCOSE (test code = 105 mg/dL 70-110 3883932058) CREATININE (test code = 0.76 mg/dL 0.6-1.25 5359445285) TOTAL BILI (test code = 0.6 mg/dL 0.1-1.5 6495356944) CALCIUM (test code = 9.5 mg/dL 8.6-10.6 3461970398) T PROTEIN (test code = 7.8 g/dL 6.3-8.2 6458818357) ALBUMIN (test code = 4.8 g/dL 3.5-5 6975737711) ALK PHOS (test code = 85 U/L 34-122 2668435541) ALTv (test code = 67 U/L 5-50 H 1742-6) AST(SGOT) (test code = 53 U/L 13-40 H 3874028098) eGFR Calculation mL/min/1.73m2 (Non-) (test code = 2985305559) eGFR Calculation mL/min/1.73m2 () (test code = 7844967099) TOM (test code = TOM) Association of Glomerular Filtration Rate (GFR) and Staging of Kidney Disease* + --+ --+ ------+| GFR (mL/min/1.73 m2) ?| With Kidney Damage ?| ?Without Kidney Damage+ --------+ --------+ +| ?>90 ?| ?Stage one ?| ? Normal ?+ ---+ ---+ -------+| ?60-89 ?| ?Stage two ?| ? Decreased GFR ? + --+ --+ ------+| ?30-59 ?| ?Stage three ?| ? Stage three ? + --+ --+ ------+| ?15-29 ?| ?Stage four ? | ? Stage four ?+ ---+ ---+ -------+| ?<15 (or dialysis) ? ?| ?Stage five ? | ? Stage five ?+ ---+ ---+ -------+ *Each stage assumes the associated GFR level has been in effect for at least three months. ?Stages 1 to 5, with or without kidney disease, indicate chronic kidney disease. Notes: Determination of stages one and two (with eGFR >59mL/min/1.73 m2) requires estimation of kidney damage for at least three months as defined by structural or functional abnormalities of the kidney, manifested by either:Pathological abnormalities or Markers of kidney damage (including abnormalities in the composition of the blood or urine or abnormalities in imaging tests). Lab Interpretation Abnormal (test code = 71509-8) [facility] Test Item Value Reference Range Interpretation Comments LIPASE (test code = 0772589282) 69 U/L 0-220 Lab Interpretation (test code = Normal 37050-6) [facility] [id number] 06:55:00 Test Item Value Reference Range Interpretation Comments WBC (test code = See_Comment H [Automated 9371-2) message] The sy stem which generated this result transmitted reference range : 4.20 - 10.70 10*3/?L. The reference range was not used to interpret this result as normal/abnormal . RBC (test code = See_Comment H [Automated 8) message] The sy stem which generated this result transmitted reference range : 4.26 - 5.52 10*6/?L. The reference range was not used to interpret this result as normal/abnormal . HGB (test code = 18.3 g/dL 12.2-16.4 H 718-7) HCT (test code = 52.2 % 38.4-49.3 H 4544-3) MCV (test code = 88.8 fL 81.7-95.6 787-2) MCH (test code = 31.1 pg 26.1-32.7 785-6) MCHC (test code = 35.1 g/dL 31.2-35 H 786-4) RDW-SD (test code = 39.6 fL 38.5-51.6 33141-1) RDW-CV (test code = 12.0 % 12.1-15.4 L 788-0) PLT (test code = See_Comment [Automated 777-3) message] The sy stem which generated this result transmitted reference range : 150 - 328 10*3/ ?L. The reference r robin was not used to interpret this result as normal/abnormal . MPV (test code = 10.8 fL 9.8-13 58026-2) NRBC/100 WBC (test See_Comment [Automat ed code = [id number]) message] The system which generated this result transmitted reference range : 0.0 - 10.0 /100 WBCs. The refer ence range was not u sed to interpret th is result as normal/abnormal . NRBC x10^3 (test code <0.01 See_Comment [Auto mated = [id number]) message] The s ystem which generated this result transmitted reference range : 10*3/?L. The reference range was not used to interpret this result as normal/abnormal . GRAN MAT (NEUT) % 58.4 % (test code = 770-8) IMM GRAN % (test code 0.80 % = [id number]) LYMPH % (test code = 29.8 % 736-9) MONO % (test code = 9.0 % 5905-5) EOS % (test code = 1.3 % 713-8) BASO % (test code = 0.7 % 706-2) GRAN MAT x10^3(ANC) 7.11 10*3/uL 1.99-6.95 H (test code = 5894106697) IMM GRAN x10^3 (test 0.10 10*3/uL 0-0.06 H code = 2112928850) LYMPH x10^3 (test code 3.63 10*3/uL 1.09-3.23 H = 731-0) MONO x10^3 (test code 1.10 10*3/uL 0.36-1.02 H = 742-7) EOS x10^3 (test code = 0.16 10*3/uL 0.06-0.53 711-2) BASO x10^3 (test code 0.09 10*3/uL 0.01-0.09 = 704-7) Lab Interpretation Abnormal (test code = 90098-2) [facility]2016-07-20 08:21:00 Test Item Value Reference Range Interpretation Comments Magnesium Lvl (test code = Magnesium 2.1 1.8-2.4 Lvl) [facility]2016-07-20 08:21:00 Test Item Value Reference Range Interpretation Comments eGFR (test code = eGFR) 117 [place] 858176-07-20 08:21:00 Test Item Value Reference Range Interpretation Comments BUN (test code = BUN) 9 7-22 [facility]2016-07-20 08:21:00 Test Item Value Reference Range Interpretation Comments Sodium Lvl (test code = Sodium Lvl) 143 135-145 [facility]2016-07-20 08:21:00 Test Item Value Reference Range Interpretation Comments Potassium Lvl (test code = Potassium 3.9 3.5-5.1 Lvl) [facility]2016-07-20 08:21:00 Test Item Value Reference Range Interpretation Comments Creatinine Lvl (test code = Creatinine 0.79 0.50-1.40 Lvl) [facility]2016-07-20 08:21:00 Test Item Value Reference Range Interpretation Comments Chloride Lvl (test code = Chloride Lvl) 109 95-109 [facility]2016-07-20 08:21:00 Test Item Value Reference Range Interpretation Comments Glucose Lvl (test code = Glucose Lvl) 98 70-99 [facility]2016-07-20 08:21:00 Test Item Value Reference Range Interpretation Comments CO2 (test code = CO2) 24 24-32 [place] 858176-07-20 08:21:00 Test Item Value Reference Range Interpretation Comments Calcium Lvl (test code = Calcium Lvl) 8.9 8.5-10.5 [facility]2016-07-20 08:21:00 Test Item Value Reference Range Interpretation Comments AGAP (test code = AGAP) 13.9 10.0-20.0 [facility]2016-07-20 08:21:00 Test Item Value Reference Range Interpretation Comments Phosphorus (test code = Phosphorus) 3.3 2.5-4.5 [facility] ClinicYosceqrZJSGITYBHG9189-76-71 08:21:00 Test Item Value Reference Range Interpretation Comments Monocytes (test code = Monocytes) 10.4 2.0-12.0 [facility] ClinicZuhnfmhOACVEPKEWR6680-77-44 08:21:00 Test Item Value Reference Range Interpretation Comments Monocytes # (test code = Monocytes #) 0.8 <=0.8 [facility] ClinicWpekdznNXKFSMVKRT7366-84-72 08:21:00 Test Item Value Reference Range Interpretation Comments Lymphocytes (test code = Lymphocytes) 34.4 20.0-40.0 [facility] ClinicSibelxjYMIIDFLWGU2572-58-00 08:21:00 Test Item Value Reference Range Interpretation Comments Eosinophils # (test code = Eosinophils 0.4 <=0.5 #) [facility] ClinicUmnldnkMDGONEHDEN3341-32-60 08:21:00 Test Item Value Reference Range Interpretation Comments Segs (test code = Segs) 49.0 45.0-75.0 [facility] ClinicLovblczNRYLYOJMSY4327-41-00 08:21:00 Test Item Value Reference Range Interpretation Comments Lymphocytes # (test code = Lymphocytes 2.5 1.0-5.5 #) [facility] ClinicWnqzwwhHFMLVYSFSA9822-25-11 08:21:00 Test Item Value Reference Range Interpretation Comments Segs-Bands # (test code = Segs-Bands #) 3.5 1.5-8.1 [facility] ClinicHolzovtLDKKMYMMNS1915-68-48 08:21:00 Test Item Value Reference Range Interpretation Comments Basophils (test code = Basophils) 0.6 <=1.0 [facility] ClinicFxfuetrJHSQZDIETE8457-55-85 08:21:00 Test Item Value Reference Range Interpretation Comments Eosinophils (test code = Eosinophils) 5.6 <=4.0 [facility] ClinicYgyzvmeRZIFQSUYAZ0384-86-67 08:21:00 Test Item Value Reference Range Interpretation Comments MCHC (test code = MCHC) 33.6 32.0-36.0 [facility]lxmamfLXSPCOCEYO6229-19-93 08:21:00 Test Item Value Reference Range Interpretation Comments MPV (test code = MPV) 10.0 7.4-10.4 [facility] HospitalTqfzgagDTREFLZVJA8055-02-92 08:21:00 Test Item Value Reference Range Interpretation Comments RDW (test code = RDW) 13.0 11.5-14.5 [facility] HospitalXcmmqqcENSFEWTZRL0175-91-40 08:21:00 Test Item Value Reference Range Interpretation Comments Platelet (test code = Platelet) 171 133-450 [facility] HospitalZyhnfttCBTFXUSIML7280-28-00 08:21:00 Test Item Value Reference Range Interpretation Comments Hct (test code = Hct) 47.3 42.0-54.0 [facility]ll[facility]lycHCVUHLBEXH9728-74-49 08:21:00 Test Item Value Reference Range Interpretation Comments Hgb (test code = Hgb) 15.9 14.0-18.0 [facility] HospitalCswyfluHQEKXAXZPC9922-41-30 08:21:00 Test Item Value Reference Range Interpretation Comments MCH (test code = MCH) 29.8 pg 27.0-31.0 [facility] HospitalQmhmntyOUUIJIGOEK9804-94-63 08:21:00 Test Item Value Reference Range Interpretation Comments MCV (test code = MCV) 88.7 80.0-94.0 [facility] HospitalVoryimkQNELNTLOSG7541-33-22 08:21:00 Test Item Value Reference Range Interpretation Comments RBC (test code = RBC) 5.34 4.70-6.10 [facility] HospitalLoeqqayXDOCNGCUIN8632-62-65 08:21:00 Test Item Value Reference Range Interpretation Comments WBC (test code = WBC) 7.2 3.7-10.4 [facility] HospitalRdxthfhSBRHKHDVTE3723-43-41 19:35:00 Test Item Value Reference Range Interpretation Comments Platelet (test code = Platelet) 178 133-450 [facility]CHEM VUCQP4692-21-57 09:46:00 Test Item Value Reference Range Interpretation Comments Magnesium Lvl (test code = Magnesium 2.0 1.8-2.4 Lvl) [facility] HospitalCmliknrZVHXUJ7441-98-35 06:05:00 Test Item Value Reference Range Interpretation Comments CHD Risk (test code = CHD Risk) 4.45 4.00-7.30 [facility] LNEDHMOYZ2238[facility]37-92 06:05:00 Test Item Value Reference Range Interpretation Comments Hgb A1C (test code = Hgb A1C) 5.2 [facility] AND [id number] 06:05:00 Test Item Value Reference Range Interpretation Comments UA Sq Epi (test code = UA Sq Epi) None Seen [facility] AND [id number] 06:05:00 Test Item Value Reference Range Interpretation Comments UA Color (test code = Yellow *NA*(09/05/15 UA Color) 1:05 AM) [facility] AND [id number] 06:05:00 Test Item Value Reference Range Interpretation Comments UA pH (test code = UA pH) 6.0 5.0-8.0 [facility] AND [id number] 06:05:00 Test Item Value Reference Range Interpretation Comments UA Spec Grav (test code = UA Spec Grav) 1.030 [facility] AND [id number] 06:05:00 Test Item Value Reference Range Interpretation Comments UA Turbidity (test code = Clear (09/05/15 1:05 UA Turbidity) AM) [facility] AND [id number] 06:05:00 Test Item Value Reference Range Interpretation Comments UA Ketones (test code = UA Negative mg/dL Ketones) [facility] AND [id number] 06:05:00 Test Item Value Reference Range Interpretation Comments UA Glucose (test code = UA Negative mg/dL Glucose) [facility] AND [id number] 06:05:00 Test Item Value Reference Range Interpretation Comments UA Blood (test code = Negative (09/05/15 1:05 UA Blood) AM) [facility] AND [id number] 06:05:00 Test Item Value Reference Range Interpretation Comments UA Bili (test code = Negative *NA*(09/05/15 UA Bili) 1:05 AM) [facility] AND [id number] 06:05:00 Test Item Value Reference Range Interpretation Comments UA Protein (test code = UA Negative mg/dL Protein) [facility] AND [id number] 06:05:00 Test Item Value Reference Range Interpretation Comments UA Mucus (test code = UA Mucus) Few /LPF [facility] AND [id number] 06:05:00 Test Item Value Reference Range Interpretation Comments UA WBC (test code = UA WBC) no gt <=5 [facility] AFJWZ7558-24-03 06:05:00 Test Item Value Reference Range Interpretation Comments UA Urobilinogen (test code = UA 2.0 0.1-1.0 Urobilinogen) [facility] [id number] 06:05:00 Test Item Value Reference Range Interpretation Comments UA Leuk Est (test Negative (09/05/15 1:05 code = UA Leuk Est) AM) [facility] [id number] 06:05:00 Test Item Value Reference Range Interpretation Comments UA Nitrite (test code Negative (09/05/15 1:05 = UA Nitrite) AM) [facility] GECRFVR3851-67-25 06:05:00 Test Item Value Reference Range Interpretation Comments Troponin-I (test code = Troponin-I) no gt <=0.40 [facility] [id number] 06:05:00 Test Item Value Reference Range Interpretation Comments Phosphorus (test code = Phosphorus) 2.6 2.5-4.5 [facility] [id number] 06:05:00 Test Item Value Reference Range Interpretation Comments U Cannab Scr (test Negative *NA*(09/05/15 code = U Cannab Scr) 1:05 AM) [facility] [id number] 06:05:00 Test Item Value Reference Range Interpretation Comments UDS Note (test code = See Note *NA*(09/05/15 UDS Note) 1:05 AM) [facility] [id number] 06:05:00 Test Item Value Reference Range Interpretation Comments U Phencyc Scr (test Negative *NA*(09/05/15 code = U Phencyc Scr) 1:05 AM) [facility] [id number] 06:05:00 Test Item Value Reference Range Interpretation Comments U Opiate Scr (test Negative *NA*(09/05/15 code = U Opiate Scr) 1:05 AM) [facility] [id number] 06:05:00 Test Item Value Reference Range Interpretation Comments U Cocaine Scr (test Negative *NA*(09/05/15 code = U Cocaine Scr) 1:05 AM) [facility] NDTKPJ2610-61-94 06:05:00 Test Item Value Reference Range Interpretation Comments U Benzodia Scr (test Negative *NA*(09/05/15 code = U Benzodia Scr) 1:05 AM) [facility] [id number] 06:05:00 Test Item Value Reference Range Interpretation Comments U Amph Scr (test code Negative *NA*(09/05/15 = U Amph Scr) 1:05 AM) [facility] [id number] 06:05:00 Test Item Value Reference Range Interpretation Comments U Cindi Scr (test code Negative *NA*(09/05/15 = U Cindi Scr) 1:05 AM) [facility] HospitalJedbqevZNZBHUIQOFIJ6159-17-36 06:05:00 Test Item Value Reference Range Interpretation Comments AGAP (test code = AGAP) 13.5 10.0-20.0 [facility] HospitalQvfkultGZNMBWKBSPHB2193-99-54 06:05:00 Test Item Value Reference Range Interpretation Comments Calcium Lvl (test code = Calcium Lvl) 7.9 8.5-10.5 [facility] HospitalSlkyjhcNXZINOLFAALC9241-36-81 06:05:00 Test Item Value Reference Range Interpretation Comments eGFR (test code = eGFR) 98 [facility] HospitalDtrcxllBJAHPRXRUPMA0379-12-63 06:05:00 Test Item Value Reference Range Interpretation Comments Glucose Lvl (test code = Glucose Lvl) 118 70-99 [facility] HospitalPfbiqysANZUXJAEDVLE9160-41-11 06:05:00 Test Item Value Reference Range Interpretation Comments BUN (test code = BUN) 12 7-22 [facility] HospitalPizotinKWDCFQNWRKQI5338-97-67 06:05:00 Test Item Value Reference Range Interpretation Comments Creatinine Lvl (test code = Creatinine 1.00 0.50-1.40 Lvl) [facility] HospitalTegvrgaZAOIHRIFRKRJ1798-28-49 06:05:00 Test Item Value Reference Range Interpretation Comments CO2 (test code = CO2) 22 24-32 [facility] HospitalDsfesnsTEEGSSOJWZVF5181-88-70 06:05:00 Test Item Value Reference Range Interpretation Comments Chloride Lvl (test code = Chloride Lvl) 111 95-109 [facility] HospitalLwpgepbKPIYFQZOVLGL4073-91-81 06:05:00 Test Item Value Reference Range Interpretation Comments Potassium Lvl (test code = Potassium 3.5 3.5-5.1 Lvl) [facility]seqeWQQKRTRQYVAO0385-88-46 06:05:00 Test Item Value Reference Range Interpretation Comments Sodium Lvl (test code = Sodium Lvl) 143 135-145 [facility] ClinicWytwiozRRCFWTWKIH1981-78-40 06:05:00 Test Item Value Reference Range Interpretation Comments Hgb (test code = Hgb) 15.1 14.0-18.0 [facility] ClinicWuquznvTRDTYERGJN4930-77-16 06:05:00 Test Item Value Reference Range Interpretation Comments Hct (test code = Hct) 43.9 42.0-54.0 [facility] ClinicCurnmkiGXPXBUUSVN3395-50-64 06:05:00 Test Item Value Reference Range Interpretation Comments MCH (test code = MCH) 30.1 pg 27.0-31.0 [facility] ClinicSxvjvhwLZOVSZPMPN6749-50-61 06:05:00 Test Item Value Reference Range Interpretation Comments MCHC (test code = MCHC) 34.5 32.0-36.0 [facility] ClinicJkprxifNFPZHAZQWI9819-97-25 06:05:00 Test Item Value Reference Range Interpretation Comments MCV (test code = MCV) 87.2 80.0-94.0 [facility] ClinicDkyphehWOBKMIVTNY9480-84-61 06:05:00 Test Item Value Reference Range Interpretation Comments WBC X 10x3 (test code = WBC X 10x3) 4.8 3.7-10.4 [facility] ClinicApjclwlBKVDKCVUEB4744-83-90 06:05:00 Test Item Value Reference Range Interpretation Comments RBC X 10x6 (test code = RBC X 10x6) 5.03 4.70-6.10 [facility] ClinicVmkjpveBQVKYXEJGH1947-21-71 06:05:00 Test Item Value Reference Range Interpretation Comments RDW (test code = RDW) 12.9 11.5-14.5 [facility] ClinicXwbrodiILOIUWGHIY4706-74-74 06:05:00 Test Item Value Reference Range Interpretation Comments MPV (test code = MPV) 10.5 7.4-10.4 [facility] ClinicJifimwlAXAPXYQEME7224-06-01 06:05:00 Test Item Value Reference Range Interpretation Comments Platelet (test code = Platelet) 60 133-450 [facility] ClinicMnixmpsWDHSMWHRYU3803-92-49 06:05:00 Test Item Value Reference Range Interpretation Comments Eosinophils (test code = Eosinophils) 3.0 <=4.0 [facility] ClinicOqnikaxFQZSJDXRMX0450-90-36 06:05:00 Test Item Value Reference Range Interpretation Comments Monocytes (test code = Monocytes) 6.0 2.0-12.0 [facility] ClinicAwkcpvtRERHUCCWDQ2860-95-81 06:05:00 Test Item Value Reference Range Interpretation Comments Basophils (test code = Basophils) 1.0 <=1.0 [facility] ClinicPrxqqctHPHTGFKPYT7980-26-09 06:05:00 Test Item Value Reference Range Interpretation Comments Segs (test code = Segs) 52.0 45.0-75.0 [facility] ClinicBhbhlsfQXETDWUGUE2101-65-04 06:05:00 Test Item Value Reference Range Interpretation Comments Lymphocytes (test code = Lymphocytes) 38.0 20.0-40.0 [facility] ClinicZkdiikcIWGSCZKPDS3683-36-55 06:05:00 Test Item Value Reference Range Interpretation Comments Plt Morph (test code = Normal (09/05/15 1:05 Plt Morph) AM) [facility] ClinicFlsidycVZNCIREKHG3549-30-68 06:05:00 Test Item Value Reference Range Interpretation Comments Monocytes # (test code = Monocytes #) 0.3 <=0.8 [facility] ClinicWzomqreKZJJIEWQGL4499-23-53 06:05:00 Test Item Value Reference Range Interpretation Comments Anisocyte (test code = 1+ *ABN*(09/05/15 Anisocyte) 1:05 AM) [facility] ClinicMjjfxfmGPPJCWRINA5515-86-27 06:05:00 Test Item Value Reference Range Interpretation Comments Eosinophils # (test code = Eosinophils 0.2 <=0.5 #) [facility] ClinicImhoaduHJVIDQBXHC8495-73-99 06:05:00 Test Item Value Reference Range Interpretation Comments Lymphocytes # (test code = Lymphocytes 1.8 1.0-5.5 #) [facility] ClinicAkgcoljSKZYHGAENA8684-51-88 06:05:00 Test Item Value Reference Range Interpretation Comments Segs-Bands # (test code = Segs-Bands #) 2.5 1.5-8.1 [facility]YLROT9217[facility] 06:05:00 Test Item Value Reference Range Interpretation Comments VLDL (test code = VLDL) 33 [facility]UmdchafDYWYKD1591-36-93 06:05:00 Test Item Value Reference Range Interpretation Comments LDL (Calculated) (test code = LDL 98 (Calculated)) [facility] CenterYbjtcfmFUVCNZ8634-12-52 06:05:00 Test Item Value Reference Range Interpretation Comments HDL (test code = HDL) 38 [facility] LjegmfqHHCHIQ7033-16-90 06:05:00 Test Item Value Reference Range Interpretation Comments Trig (test code = Trig) 164 [facility] ZyibcgiAUCDYC5122-14-64 06:05:00 Test Item Value Reference Range Interpretation Comments Chol (test code = Chol) 169 [facility] FtdwindTIAFVNHHEQ2359-84-38 18:11:24 Test Item Value Reference Range Interpretation Comments Etoh (%) (test code = Etoh (%)) 0.018 [facility] LltoxcbKQLYMZNDIP5562-62-93 18:11:24 Test Item Value Reference Range Interpretation Comments Ethanol Lvl (test code = Ethanol Lvl) 18 [facility] [employer] PartnersCARBalance FinancialAC UHKTGQR7220-47-59 17:48:19 Test Item Value Reference Range Interpretation Comments CK MB Index (test code = CK MB Index) 0.3 <=2.5 [facility] [employer]AC QNFRWTC2767-61-67 17:48:19 Test Item Value Reference Range Interpretation Comments CK MB (test code = CK MB) 0.6 0.5-3.6 [facility] [employer]AC YBCHCOJ3111-15-97 17:48:19 Test Item Value Reference Range Interpretation Comments Total CK (test code = Total CK) 185 12-191 [facility] [employer] NVCIAFW1315-97-20 17:48:19 Test Item Value Reference Range Interpretation Comments Troponin-I (test code = Troponin-I) no gt <=0.40 [employer] VMYDN8946-90-26 17:48:19 Test Item Value Reference Range Interpretation Comments eGFR (test code = eGFR) 50 [facility] [employer] ZDXIT0080-51-28 17:48:19 Test Item Value Reference Range Interpretation Comments AGAP (test code = AGAP) 14.1 10.0-20.0 [employer] ARAAD5438-21-03 17:48:19 Test Item Value Reference Range Interpretation Comments Calcium Lvl (test code = Calcium Lvl) 8.6 8.5-10.5 [employer] JBGZE2096-63-31 17:48:19 Test Item Value Reference Range Interpretation Comments CO2 (test code = CO2) 24 24-32 [employer] ACAQE6948-35-52 17:48:19 Test Item Value Reference Range Interpretation Comments Chloride Lvl (test code = Chloride Lvl) 106 95-109 [facility]2016-07-18 17:48:19 Test Item Value Reference Range Interpretation Comments Glucose Lvl (test code = Glucose Lvl) 105 70-99 [facility]2016-07-18 17:48:19 Test Item Value Reference Range Interpretation Comments Potassium Lvl (test code = Potassium 4.1 3.5-5.1 Lvl) [facility]2016-07-18 17:48:19 Test Item Value Reference Range Interpretation Comments Creatinine Lvl (test code = Creatinine 1.08 0.50-1.40 Lvl) [facility]2016-07-18 17:48:19 Test Item Value Reference Range Interpretation Comments BUN (test code = BUN) 12 7-22 [facility]2016-07-18 17:48:19 Test Item Value Reference Range Interpretation Comments Sodium Lvl (test code = Sodium Lvl) 140 135-145 [facility] ClinicUxwshpiQXDUASUSZW7999-93-26 17:48:19 Test Item Value Reference Range Interpretation Comments Eosinophils # (test code = Eosinophils 0.3 <=0.5 #) [facility] ClinicQinheidITKQOHQNFE1800-71-82 17:48:19 Test Item Value Reference Range Interpretation Comments Monocytes # (test code = Monocytes #) 0.7 <=0.8 [facility] ClinicJcytujqWQUIUPRGEP0685-05-97 17:48:19 Test Item Value Reference Range Interpretation Comments Lymphocytes # (test code = Lymphocytes 2.0 1.0-5.5 #) [facility] ClinicMzqbdhcJCHOZZSJVF5157-14-40 17:48:19 Test Item Value Reference Range Interpretation Comments Segs-Bands # (test code = Segs-Bands #) 2.5 1.5-8.1 [facility] ClinicFixnhgrTWBOMUFCAL5416-42-90 17:48:19 Test Item Value Reference Range Interpretation Comments Segs (test code = Segs) 45.4 45.0-75.0 [facility] ClinicZjvaxhrNWIQLMDHBJ9717-31-25 17:48:19 Test Item Value Reference Range Interpretation Comments Basophils (test code = Basophils) 0.7 <=1.0 [facility] ClinicDurvxhxDVFJNTSRED8350-87-83 17:48:19 Test Item Value Reference Range Interpretation Comments Lymphocytes (test code = Lymphocytes) 35.8 20.0-40.0 [facility] ClinicIelfbeyKGWDJFCDHE9593-91-15 17:48:19 Test Item Value Reference Range Interpretation Comments Eosinophils (test code = Eosinophils) 5.3 <=4.0 [facility] ClinicArsllhjNRQFKLYNBI9270-44-85 17:48:19 Test Item Value Reference Range Interpretation Comments Monocytes (test code = Monocytes) 12.8 2.0-12.0 [facility] ClinicVwjqpzsULMTERLFJR4022-69-13 17:48:19 Test Item Value Reference Range Interpretation Comments Hgb (test code = Hgb) 16.0 14.0-18.0 [facility] ClinicFjwhcjhBLEAFYQHOU1181-25-41 17:48:19 Test Item Value Reference Range Interpretation Comments RBC (test code = RBC) 5.31 4.70-6.10 [facility] ClinicOwwoxddGWOSMHKSIV0287-36-43 17:48:19 Test Item Value Reference Range Interpretation Comments WBC (test code = WBC) 5.5 3.7-10.4 [facility] ClinicJgvsvsaUNBFAGYZYC4246-31-60 17:48:19 Test Item Value Reference Range Interpretation Comments MCV (test code = MCV) 88.1 80.0-94.0 [facility] ClinicEeskanlLSQFIBAMBW0055-96-78 17:48:19 Test Item Value Reference Range Interpretation Comments Hct (test code = Hct) 46.8 42.0-54.0 [facility] ClinicHhkwggtDQOLEIMKQQ8900-16-47 17:48:19 Test Item Value Reference Range Interpretation Comments MPV (test code = MPV) 9.4 7.4-10.4 [facility] ClinicUyzgcvvYZMHSLNRCH8891-75-50 17:48:19 Test Item Value Reference Range Interpretation Comments RDW (test code = RDW) 13.3 11.5-14.5 [facility] ClinicPhvmwahUCLMBXVKQH9494-09-09 17:48:19 Test Item Value Reference Range Interpretation Comments MCHC (test code = MCHC) 34.2 32.0-36.0 [facility] ClinicHoczjhfPDPYFNGGVP0862-60-13 17:48:19 Test Item Value Reference Range Interpretation Comments MCH (test code = MCH) 30.1 pg 27.0-31.0 [facility] ClinicSjkhmbdERCXREYJPF1119-21-62 17:48:19 Test Item Value Reference Range Interpretation Comments INR (test code = INR) 1.06 0.85-1.17 [facility] ClinicBzzedpaQSJSLASINH9295-21-84 17:48:19 Test Item Value Reference Range Interpretation Comments PT (test code = PT) 14.1 s 12.0-14.7 [facility]NbslugtEIEBHUOPMW0473-66-22 17:48:19 Test Item Value Reference Range Interpretation Comments PTT (test code = PTT) 28.9 s 22.9-35.8 [facility]CHE[facility] UFWBF2744-99-86 17:36:00 Test Item Value Reference Range Interpretation Comments POC Creatinine (test code = POC 1.0 0.5-1.4 Creatinine) [facility]
[2022-11-21] MEDS ORDERED: KETOROLAC 30 MG/ML INJ ONE (12:42)
--- NOTE | 2022-11-21 13:45 | RAD REPORT ---
EXAM DESCRIPTION: RAD - Knee Right 3 View - 11/21/2022 1:30 pm CLINICAL HISTORY: PAIN COMPARISON: No comparisons FINDINGS: No fracture, dislocation or joint effusion seen.
--- NOTE | 2022-11-21 13:59 | ER ---
Nurse's Notes [facility] Name: Feliz Linares Jr Age: 42 yrs Sex: Male : 1980 Arrival Date: 11/21/2022 Time: 12:19 Bed IW1 Private MD: Diagnosis: Sprain of unspecified site of right knee Presentation: 11/21 12:25 Chief complaint: Patient states: Twisted right knee yesterday. Coronavirus screen: At ld1 this time, the client does not indicate any symptoms associated with coronavirus-19. Ebola Screen: No symptoms or risks identified at this time. Initial Sepsis Screen: Does the patient meet any 2 criteria? No. Patient's initial sepsis screen is negative. Does the patient have a suspected source of infection? No. Patient's initial sepsis screen is negative. Risk Assessment: Do you want to hurt yourself or someone else? Patient reports no desire to harm self or others. Onset of symptoms was November 21, 2022 at 12:25. 12:25 Method Of Arrival: Ambulatory ld1 12:25 Acuity: ALYSSA 4 ld1 Triage Assessment: 12:26 General: Appears in no apparent distress. comfortable, Behavior is calm, cooperative, ld1 appropriate for age. Pain: Complains of pain in right knee Pain does not radiate. Pain currently is 8 out of 10 on a pain scale. Quality of pain is described as shooting, throbbing. EENT: No signs and/or symptoms were reported regarding the EENT system. Neuro: Level of Consciousness is awake, alert, obeys commands, Oriented to person, place, time, situation. Cardiovascular: Capillary refill < 3 seconds Patient's skin is warm and dry. Respiratory: Airway is patent Respiratory effort is even, unlabored. GI: Abdomen is flat, non-distended. : No signs and/or symptoms were reported regarding the genitourinary system. Derm: No signs and/or symptoms reported regarding the dermatologic system. Musculoskeletal: Range of motion: intact in left knee and right knee. Historical: - Allergies: 12: LITHIUM DERIVITIVES; ld1 - PMHx: 12: ADD/ADHD; Bipolar disorder; Depression; Hypertension; Seizures; ld1 - PSHx: 12: Left knee surgery; Left hip replacement; ld1 - Immunization history:: Adult Immunizations up to date. - Social history:: Smoking status: Patient reports the use of cigarette tobacco products, smokes one pack cigarettes per day. Patient/guardian denies using alcohol. Screenin:27 [facility] ED Fall Risk Assessment (Adult) History of falling in the last 3 months, ld1 including since admission No falls in past 3 months (0 pts). Abuse screen: Denies threats or abuse. Denies injuries from another. Nutritional screening: No deficits noted. Tuberculosis screening: No symptoms or risk factors identified. Assessment: 12:27 Reassessment: See triage assessment. ERP in triage assessing patient. ld1 Vital Signs: 12:26 BP 145 / 98; Pulse 85; Resp 18; Temp 97.9(TE); Pulse Ox 96% on R/A; Weight 97.52 kg; ld1 Height 5 ft. 10 in. ; 12:26 Pain 8/10; ld1 12:26 Body Mass Index 30.85 (97.52 kg, 177.8 cm) ld1 12:26 Pain Scale: Adult ld1 ED Course: 12:22 Patient arrived in ED. mg5 12:23 Lexy Mai FNP is PHCP. jh7 12:23 Uli Shea MD is Attending Physician. jh7 12:25 Triage completed. ld1 12:26 Arm band placed on right wrist. ld1 12:27 Patient has correct armband on for positive identification. Placed in gown. Bed in low ld1 position. Call light in reach. Side rails up X2. manager monitoring on. Pulse ox on. NIBP on. Door closed. Noise minimized. Warm blanket given. 12:27 No provider procedures requiring assistance completed. Patient did not have IV access ld1 during this emergency room visit. 12:32 Angelika Rutherford, RN is Primary Nurse. ld1 13:28 XRAY Knee RIGHT 3 view In Process Unspecified. EDMS Administered Medications: 12:32 Drug: Ketorolac IM 60 mg IM once Route: IM; Site: right deltoid; ld1 Medication: 12:27 VIS not applicable for this client. ld1 Outcome: 13:58 Discharge ordered by . [facility] 14:04 Discharged to home ambulatory, with crutches, with family, 14:04 Condition: stable 14:04 Discharge instructions given to patient, Instructed on discharge instructions, follow up and referral plans. medication usage, Demonstrated understanding of instructions, follow-up care, medications, Prescriptions given X 1, 14:04 Patient left the ED. iw Signatures: Dispatcher [employer] Magaly Muller RN RN iw Angelika Rutherford RN RN ld1 Lexy Mai, NEON SIGN MECHANIC NEON SIGN MECHANIC 7 Vandana Driver mg5 Corrections: (The following items were deleted from the chart) 12:26 12:26 PSHx: None; ld1 ld1
--- NOTE | 2022-11-21 13:59 | EDPHYS ---
Physician Documentation [facility] Name: Feliz Linares Jr Age: 42 yrs Sex: Male : 1980 Arrival Date: 11/21/2022 Time: 12:19 Bed IW1 Private MD: ED Physician Uli Shea HPI: 11/21 12:25 This 42 yrs old Male presents to ER via Ambulatory with complaints of Knee Injury. jh7 12:25 Onset: The symptoms/episode began/occurred yesterday. Patient reports that he twisted jh7 his right knee yesterday twice causing him to fall. Reports increased pain with ambulation and flexion of the knee.. Historical: - Allergies: 12:26 LITHIUM DERIVITIVES; ld1 - PMHx: 12:26 ADD/ADHD; Bipolar disorder; Depression; Hypertension; Seizures; ld1 - PSHx: 12:26 Left knee surgery; Left hip replacement; ld1 - Immunization history:: Adult Immunizations up to date. - Social history:: Smoking status: Patient reports the use of cigarette tobacco products, smokes one pack cigarettes per day. Patient/guardian denies using alcohol. ROS: 12:25 Constitutional: Negative for fever, chills, and weight loss, Eyes: Negative for injury, jh7 pain, redness, and discharge, Neck: Negative for injury, pain, and swelling, Cardiovascular: Negative for chest pain, palpitations, and edema, Respiratory: Negative for shortness of breath, cough, wheezing, and pleuritic chest pain, Abdomen/GI: Negative for abdominal pain, nausea, vomiting, diarrhea, and constipation, Skin: Negative for injury, rash, and discoloration, Neuro: Negative for headache, weakness, numbness, tingling, and seizure, 12:25 MS/extremity: Positive for pain, tenderness, of the right knee, 12:25 All other systems are negative, Exam: 12:25 Constitutional: This is a well developed, well nourished patient who is awake, alert, jh7 and in no acute distress. Neck: Trachea midline, no thyromegaly or masses palpated, and no cervical lymphadenopathy. Supple, full range of motion without nuchal rigidity, or vertebral point tenderness. No Meningismus. Cardiovascular: Regular rate and rhythm with a normal S1 and S2. No gallops, murmurs, or rubs. Normal PMI, no JVD. No pulse deficits. Respiratory: Lungs have equal breath sounds bilaterally, clear to auscultation and percussion. No rales, rhonchi or wheezes noted. No increased work of breathing, no retractions or nasal flaring. Back: No spinal tenderness. No costovertebral tenderness. Full range of motion. Skin: Warm, dry with normal turgor. Normal color with no rashes, no lesions, and no evidence of cellulitis. Neuro: Awake and alert, GCS 15, oriented to person, place, time, and situation. Sensory grossly intact. 12:25 Musculoskeletal/extremity: ROM: limited active range of motion due to pain, in the right knee, Circulation is intact in all extremities. Sensation intact. Weight bearing: able to fully bear weight, Pain over the MCL with complete flexion and pivoting. This area is also tender to palpation.. Vital Signs: 12:26 BP 145 / 98; Pulse 85; Resp 18; Temp 97.9(TE); Pulse Ox 96% on R/A; Weight 97.52 kg; ld1 Height 5 ft. 10 in. ; 12:26 Pain 8/10; ld1 12:26 Body Mass Index 30.85 (97.52 kg, 177.8 cm) ld1 12:26 Pain Scale: Adult ld1 MDM: 12:23 Patient medically screened. [facility] 14:03 Differential diagnosis: fracture, sprain, strain. Data reviewed: vital signs, nurses [facility] notes, radiologic studies, plain films. I considered the following discharge prescriptions or medication management in the emergency department Medications were administered in the Emergency Department. See MAR. Independent interpretation of the following test(s) in the Emergency Department X-Ray: My interpretation is no acute fractures. Historians other than the Patient: Spouse/Significant Other: . Counseling: I had a detailed discussion with the patient and/or guardian regarding the historical points, exam findings, and any diagnostic results supporting the discharge/admit diagnosis, to return to the emergency department if symptoms worsen or persist or if there are any questions or concerns that arise at home. Response to treatment: the patient's symptoms have mildly improved after treatment. 11/21 12:28 Order name: XRAY Knee RIGHT 3 view; Complete Time: 13:57 ld1 11/21 13:57 Order name: Crutches; Complete Time: 14:04 [facility] 11/21 13:57 Order name: Talha wrap-joint; Complete Time: 14:04 [facility] Administered Medications: 12:32 Drug: Ketorolac IM 60 mg IM once Route: IM; Site: right deltoid; ld1 Disposition Summary: 11/21/22 13:58 Discharge Ordered Notes: Location: Home [facility] Problem: new [facility] Symptoms: have improved [facility] Condition: Stable [facility] Diagnosis - Sprain of unspecified site of right knee [facility] Followup: [facility] - With: Private Physician - When: 2 - 3 days - Reason: Recheck today's complaints Discharge Instructions: - Discharge Summary Sheet [facility] Forms: - Work release form iw - Family Work Release iw - Medication Reconciliation Form [facility] - Thank You Letter [facility] - Patient Portal Instructions [facility] - Leadership Thank You Letter [facility] Prescriptions: - Naprosyn 500 mg Oral Tablet - take 1 tablet ORAL route 2 times per day take with food; 30 tablet; Refills: 0, jh7 Product Selection Permitted Signatures: Dispatcher [employer] Angelika Paul RN RN ld1 Lexy Mai FNP DULSER [facility] Corrections: (The following items were deleted from the chart) 12:26 12:26 PSHx: None; ld1 ld1
[2022-11-21 14:09] VITALS: BP 145/98; TEMP 97.9; O2SAT 96
== END 2022-11-21 14:04 | disposition home or self-care (01) ==
LOC: ER 12:19
DX: S83.91XA Sprain of unspecified site of right knee, initial encounter (principal)
CPT/HCPCS: 96372; 99284

== ENCOUNTER → 2023-04-23 | Emergency (ER) | payer OTHER ==
--- NOTE | 2023-04-23 18:15 | RAD REPORT ---
EXAM DESCRIPTION: RAD - Knee Left 3 View - 04/23/2023 5:07 pm CLINICAL HISTORY: Left knee pain FINDINGS: No fracture or dislocation is seen.
--- NOTE | 2023-04-23 18:19 | EDPHYS ---
Physician Documentation [facility] Name: Feliz Linares Jr Age: 42 yrs Sex: Male : 1980 Arrival Date: 04/23/2023 Time: 15:59 Bed DX3 Private MD: ED Physician Benny Rutherford HPI: 04/22 16:12 This 42 yrs old Male presents to ER via Unassigned with complaints of Knee Pain. kb 16:13 Pt is a 42 year old male who presents for left knee pain. STates he was hit in the knee kb with a beam clamp 2 days ago. Reports he climbed 3 flights of steep stairs today and the pain increased so he came to get it evaluated. . Historical: - Allergies: 16:15 LITHIUM DERIVITIVES; tl4 - Home Meds: 16:16 None [Active]; tl4 - PMHx: 16:15 ADD/ADHD; Bipolar disorder; Depression; Hypertension; Seizures; tl4 - PSHx: 16:15 Left hip replacement; left knee surgery; tl4 - Immunization history:: Adult Immunizations unknown. - Social history:: Smoking status: Patient reports the use of cigarette tobacco products, smokes one pack cigarettes per day. ROS: 16:13 Constitutional: As per HPI kb Exam: 16:13 Constitutional: This is a well developed, well nourished patient who is awake, alert, kb and in no acute distress. Head/Face: Normocephalic, atraumatic. ENT: Moist Mucous membranes Cardiovascular: Regular rate Respiratory: Respirations even and unlabored. No increased work of breathing. Talking in full sentences Skin: Warm, dry with normal turgor. Normal color. Neuro: Awake and alert, GCS 15, oriented to person, place, time, and situation. Moves all extremities. Normal gait. 16:13 Musculoskeletal/extremity: Extremities: grossly normal except: noted in the lateral aspect of right knee: pain, swelling, tenderness, ROM: intact in all extremities, Circulation is intact in all extremities. Sensation intact. Weight bearing: able to fully bear weight, Vital Signs: 16:13 BP 136 / 77; Pulse 81; Resp 16; Temp 98.3; Pulse Ox 98% on R/A; Weight 104.33 kg; tl4 Height 6 ft. 0 in. ; Pain 7/10; 16:13 Body Mass Index 31.19 (104.33 kg, 182.88 cm) tl4 16:13 Pain Scale: Adult tl4 MDM: 16:04 Patient medically screened. kb 16:13 Differential diagnosis: closed fracture, contusion. Data reviewed: vital signs, nurses kb notes. 18:17 Counseling: I had a detailed discussion with the patient and/or guardian regarding the kb historical points, exam findings, and any diagnostic results supporting the discharge/admit diagnosis, radiology results, the need for outpatient follow up, a orthopedic surgeon, to return to the emergency department if symptoms worsen or persist or if there are any questions or concerns that arise at home. 04/22 16:10 Order name: Knee Left 3 View XRAY; Complete Time: 18:17 kb Administered Medications: No medications were administered Disposition: 16:32 I was immediately available on-site in the Emergency Department for consultation in the ms3 care of the patient. Disposition Summary: 04/23/23 18:18 Discharge Ordered Notes: Location: Home kb Condition: Stable kb Diagnosis - Contusion of left knee kb Followup: kb - With: Emergency Department - When: As needed - Reason: Worsening of condition Followup: kb - With: Private Physician - When: 2 - 3 days - Reason: Recheck today's complaints, Continuance of care, Re-evaluation by your physician Discharge Instructions: - Discharge Summary Sheet kb - Musculoskeletal Pain kb - Contusion, [id number] kb Forms: - Work release form kb - Medication Reconciliation Form kb - Thank You Letter kb - Antibiotic Education kb - Prescription Opioid Use kb - Patient Portal Instructions kb - Leadership Thank You Letter kb Prescriptions: - Diclofenac Sodium 75 mg Oral tablet, delayed release (enteric coated) - take 1 tablet ORAL route 2 times per day As needed; 30 tablet; Refills: 0, kb Product Selection Permitted Signatures: Dispatcher [employer] Huong David, Benny Prince DO DO ms3 Adalid Isaac RN RN tl4
--- NOTE | 2023-04-23 18:19 | ER ---
Nurse's Notes [facility] Name: Feliz Linares Jr Age: 42 yrs Sex: Male : 1980 Arrival Date: 04/23/2023 Time: 15:59 Bed DX3 Private MD: Diagnosis: Contusion of left knee Presentation: 04/22 16:13 Chief complaint: Patient states: Pt states he injured his left knee last week. tl4 Yesterday he walked up and down 20+ flights of steps. Now pain is significantly worse. Coronavirus screen: At this time, the client does not indicate any symptoms associated with coronavirus-19. Ebola Screen: No symptoms or risks identified at this time. Initial Sepsis Screen: Does the patient meet any 2 criteria? No. Patient's initial sepsis screen is negative. Does the patient have a suspected source of infection? No. Patient's initial sepsis screen is negative. Risk Assessment: Do you want to hurt yourself or someone else? Patient reports no desire to harm self or others. Onset of symptoms was April 22, 2023. 16:13 Method Of Arrival: Ambulatory tl4 16:13 Acuity: ALYSSA 4 tl4 Triage Assessment: 16:15 General: Appears uncomfortable, Behavior is calm, cooperative. Pain: Complains of pain tl4 in left leg. EENT: No deficits noted. No signs and/or symptoms were reported regarding the EENT system. Neuro: No deficits noted. Cardiovascular: No deficits noted. Respiratory: No deficits noted. GI: No deficits noted. No signs and/or symptoms were reported involving the gastrointestinal system. : No deficits noted. No signs and/or symptoms were reported regarding the genitourinary system. Derm: No deficits noted. No signs and/or symptoms reported regarding the dermatologic system. Musculoskeletal: Reports pain in left leg. Historical: - Allergies: 16:15 LITHIUM DERIVITIVES; tl4 - Home Meds: 16:16 None [Active]; tl4 - PMHx: 16:15 ADD/ADHD; Bipolar disorder; Depression; Hypertension; Seizures; tl4 - PSHx: 16:15 Left hip replacement; left knee surgery; tl4 - Immunization history:: Adult Immunizations unknown. - Social history:: Smoking status: Patient reports the use of cigarette tobacco products, smokes one pack cigarettes per day. Screenin:30 [facility] ED Fall Risk Assessment (Adult) History of falling in the last 3 months, bp including since admission No falls in past 3 months (0 pts). Abuse screen: Denies threats or abuse. Denies injuries from another. Nutritional screening: No deficits noted. Tuberculosis screening: No symptoms or risk factors identified. Assessment: 18:30 Reassessment: SEE TRIAGE NOTE. bp Vital Signs: 16:13 BP 136 / 77; Pulse 81; Resp 16; Temp 98.3; Pulse Ox 98% on R/A; Weight 104.33 kg; tl4 Height 6 ft. 0 in. ; Pain 7/10; 16:13 Body Mass Index 31.19 (104.33 kg, 182.88 cm) tl4 16:13 Pain Scale: Adult tl4 ED Course: 16:03 Patient arrived in ED. mg5 16:03 Huong Mendoza FNP-C is [facility]. kb 16:03 Benny Rutherford DO is Attending Physician. kb 16:15 Triage completed. tl4 16:15 Arm band placed on left wrist. tl4 17:08 Knee Left 3 View XRAY In Process Unspecified. EDMS 18:20 Bruce Carrillo, RN is Primary Nurse. bp 18:30 Patient has correct armband on for positive identification. bp 18:30 No provider procedures requiring assistance completed. Patient did not have IV access bp during this emergency room visit. Administered Medications: No medications were administered Medication: 18:30 VIS not applicable for this client. bp Outcome: 18:18 Discharge ordered by MD. kb 18:30 Discharged to home ambulatory, bp 18:30 Condition: stable 18:30 Discharge instructions given to patient, Instructed on discharge instructions, follow up and referral plans. medication usage, Demonstrated understanding of instructions, follow-up care, medications, Prescriptions given X 1, 18:31 Patient left the ED. bp Signatures: Dispatcher [employer] EDMS Huong Mendoza FNP-C FNP-Ckb Peltier, Brian, RN RN Vandana España mg5 Adalid Iasac RN RN tl4
[2023-04-23 19:40] VITALS: BP 136/77; TEMP 98.3; O2SAT 98
== END ==
LOC: ER 15:59
DX: S80.02XA Contusion of left knee, initial encounter (principal); F17.210 Nicotine dependence, cigarettes, uncomplicated; Z96.642 Presence of left artificial hip joint; Z88.8 Allergy status to other drugs, medicaments and biological substances
CPT/HCPCS: 99283